=== PATIENT | female | born 1970 | race Caucasian/White ===

== ENCOUNTER 2016-06-07 12:26 | Inpatient (IN) | payer SELFPAY ==
[2016-06-07] VITALS (7 sets, daily range): BP systolic 102–138; BP diastolic 64–84; PULSE 70–93; RESP 12–22; TEMP 97.7–98.1; O2SAT 97–98
[~2016-06-07] VITALS: Ht 149.9 cm; Wt 53.3 kg
[~2016-06-07 12:26] MED LIST: BACT800T5 PO; PENVK500 PO
[2016-06-07] MEDS ORDERED: SODIUM CHLOR 0.9% 1000 ML INJ 1,000 ML IV SCH ×2 (13:38→15:10)
[2016-06-07] MEDS ORDERED: VANCOMYCIN INJ 1,000 MG in SODIUM CHLOR 0.9% 250 ML INJ 250 ML IV ONE (13:45)
[2016-06-07] MEDS ORDERED: LIDOCAINE 1%/EPINEPHrine 1:100,000 SOLN 20 ML VIAL INFIL ONE (13:45)
--- NOTE | 2016-06-07 13:54 | PD ---
HPI Chief Complaint: Skin Problem Time Seen by Provider: 13:20 Travel History International Travel<30 days: No Contact w/Intl Traveler<30days: No Traveled to known affect area: No History of Present Illness HPI Patient is a 45-year-old female with a history of IVDA, aortic valve Endocarditis, spinal osteomyelitis, lupus, hepatitis C and alcohol abuse presenting multiple skin abscesses. She has one in the right antecubital fossa has been present for 5 days which is "the worst ever had ". She says she's had a couple on her forearms that she has open herself with a razor blade over the last few days. For 2 days she has felt feverish and reports chills. She has had some occasional dizziness and lightheadedness but denies syncope. Says some chest discomfort which she is unable to characterize some dyspnea. The symptoms were yesterday and have not recurred. She is currently on amoxicillin 3 times a day for her endocarditis. She does not remember the name of her building specialist. She is chronic back pain and denies any acute worsening or injury. She does state that she's had some tingling since yesterday and her right foot and lateral right calf because it has occasionally been difficult to move it. She denies any other focal abnormality. Last tetanus less than 5 years. PFSH Past Medical History Hx Anticoagulant Therapy: No Arthritis: Yes (HANDS) Asthma: Yes Autoimmune Disease: Yes (LUPUS) Blood Disorders: No Anxiety: Yes Depression: No Cancer: No Cardiovascular Problems: Yes High Cholesterol: No Chemotherapy: No Chest Pain: Yes Congestive Heart Failure: No COPD: Yes Cerebrovascular Accident: No Diabetes: No Diminished Hearing: No Endocrine: No Gastrointestinal Disorders: No Genitourinary: No Hepatitis: Yes (C) Immune Disorder: Yes (LUPUS) Implanted Vascular Access Dvce: Yes Kidney Stones: No Musculoskeletal: Yes (SPINE PROBLEMS (NECK AND BACK)) Neurologic: No Psychiatric: Yes Reproductive: No Respiratory: No Immunizations Current: No Radiation Therapy: No Renal Failure: No Seizures: No Sleep Apnea: No Tetanus Vaccination: > 5 Years Influenza Vaccination: No ?: Not Menopausal: Yes : 3 Para: 1 Miscarriage: 0 : 2 Ovarian Cysts: Yes Past Surgical History Abdominal Surgery: No AICD: No Arteriovenous Shunt: No Body Medical Devices: CADAVER BONE IN NECK Cardiac Surgery: No Section: Yes (X1) Ear Surgery: No Endocrine Surgery: No Eye Surgery: No Genitourinary Surgery: No Gynecologic Surgery: Yes (PARTIAL HYSTERECTOMY) Hysterectomy: Yes (PARTIAL) Insulin Pump: No Joint Replacement: No Neurologic Surgery: Yes ("NECK SURGERY") Oral Surgery: No Pacemaker: No Thoracic Surgery: No Other Surgery: Yes (cervical surgery, right wrist tendon repair) Social History Alcohol Use: Yes (DAILY; 1/5 vodka ) Tobacco Use: Yes (2 PPD) Substance Use: Yes (IV DILAUDID) Allergies-Medications (Allergen,Severity, Reaction): Coded Allergies: Penicillin (Verified Allergy, Severe, THROAT SWELLS SHUT, 06/07/16) pt states she is not allergic to it anymore Reported Meds & Prescriptions Reported Meds & Active Scripts Active Reported Amoxicillin 500 Mg Cap 500 Mg PO TID Review of Systems Except as stated in HPI: all other systems reviewed are Neg Physical Exam Narrative GENERAL: Well-developed and well-nourished adult female in no acute distress. SKIN: 3 cm fluctuant erythematous and warm lesion in the right antecubital fossae with pointing. There is no palpable thrill, no drainage. There is a zone of cellulitis surrounding it but no streaking. There are 2 areas of cellulitis and nondraining open wounds in the bilateral forearms. Warm and dry. Good turgor without tenting. HEAD: Normocephalic and atraumatic. EYES: PERRL bilaterally, 5mm. EOMI bilaterally. No injection or icterus present. No proptosis. Lids without edema or erythema. ENT: Buccal mucosa pink and moist. Oropharynx free of erythema, tonsillar hypertrophy, masses, swelling, asymmetry and exudates. Uvula midline and airway patent. NECK: Supple, no meningeal signs. Trachea midline, no JVD. No cervical or facial lymphadenopathy. CARDIOVASCULAR: Regular rate and rhythm without murmurs, rubs, clicks or gallops. Radial and posterior tibial pulses 2+ bilaterally. No pedal edema. RESPIRATORY: Clear to auscultation bilaterally with symmetrical rise and fall, no distress or use of accessory muscles. GASTROINTESTINAL: Non-tender, non-distended. Normal bowel sounds all 4 quadrants. No masses or organomegaly present. MUSCULOSKELETAL: Skin findings per above. No tenderness to palpation to bony landmarks of the elbow and normal range of motion of the right elbow. Patient freely moving all four extremities spontaneously. Extremities without clubbing, cyanosis, or edema. No obvious deformities. NEUROLOGIC: CN II-XII grossly intact. Awake and alert. Sensation intact L1-S2 bilaterally however is reduced over the L4 through S2 distribution on the right to light touch. Strength 5/5 in hip flexion, hip extension, knee flexion, knee extension, plantar flexion, dorsiflexion, and great toe flexion and extension bilaterally. Bilateral patellar and Achilles DTRs 2+. Downgoing Babinskis bilaterally. Normal speech. PSYCHIATRIC: Appropriate mood and affect; insight and judgment normal. Data Data Last Documented VS Vital Signs Date Time Temp Pulse Resp B/P Pulse Ox O2 Delivery O2 Flow Rate FiO2 06/07/16 15:12 82 18 123/84 97 Room Air 06/07/16 12:29 98.1 Orders Blood Culture (06/07/16 13:38) Wound Culture And Gram Stain (06/07/16 13:38) Electrocardiogram (06/07/16 13:38) Complete Blood Count With Diff (06/07/16 13:38) Comprehensive Metabolic Panel (06/07/16 13:38) Beta Hcg (Quant/Titer) (06/07/16 13:38) Prothrombin Time / Inr (Pt) (06/07/16 13:38) Act Partial Throm Time (Ptt) (06/07/16 13:38) Lactic Acid Sepsis Protocol (06/07/16 13:38) Magnesium (Mg) (06/07/16 13:38) Ckmb (Isoenzyme) Profile (06/07/16 13:38) Troponin I (06/07/16 13:38) Chest, Single Ap (06/07/16 ) Sodium Chlor 0.9% 1000 Ml Inj (Ns 1000 M (06/07/16 13:38) Lidocai-Epi 1%-1:100,000 Inj (Xylocaine- (06/07/16 13:45) Vancomycin Inj (Vancomycin Inj) (06/07/16 13:45) Piperacil-Tazo 3.375 Gm Premix (Zosyn 3. (06/07/16 14:00) Consult Vascular Access Team (06/07/16 ) Vascular Poc Ultrasound (06/07/16 ) Westergren Sedimentation Rate (06/07/16 15:08) C-Reactive Protein (Crp) (06/07/16 15:08) Sodium Chlor 0.9% 1000 Ml Inj (Ns 1000 M (06/07/16 15:10) Hydromorphone Pf Inj (Dilaudid Pf Inj) (06/07/16 15:30) Admit Order (Ed Use Only) (06/07/16 16:45) Labs Laboratory Tests Test 06/07/16 06/07/16 14:30 15:20 White Blood Count 6.3 TH/MM3 Red Blood Count 4.11 MIL/MM3 Hemoglobin 13.3 GM/DL Hematocrit 39.2 % Mean Corpuscular Volume 95.4 FL Mean Corpuscular Hemoglobin 32.4 PG Mean Corpuscular Hemoglobin 33.9 % Concent Red Cell Distribution Width 14.6 % Platelet Count 183 TH/MM3 Mean Platelet Volume 7.4 FL Neutrophils (%) (Auto) 55.2 % Lymphocytes (%) (Auto) 32.7 % Monocytes (%) (Auto) 8.2 % Eosinophils (%) (Auto) 3.1 % Basophils (%) (Auto) 0.8 % Neutrophils # (Auto) 3.5 TH/MM3 Lymphocytes # (Auto) 2.1 TH/MM3 Monocytes # (Auto) 0.5 TH/MM3 Eosinophils # (Auto) 0.2 TH/MM3 Basophils # (Auto) 0.0 TH/MM3 CBC Comment DIFF FINAL Differential Comment Prothrombin Time 10.3 SEC Prothromb Time International 0.9 RATIO Ratio Activated Partial 26.9 SEC Thromboplast Time Sodium Level 139 MEQ/L Potassium Level 3.7 MEQ/L Chloride Level 107 MEQ/L Carbon Dioxide Level 23.2 MEQ/L Anion Gap 9 MEQ/L Blood Urea Nitrogen 8 MG/DL Creatinine 0.51 MG/DL Estimat Glomerular Filtration 129 ML/MIN Rate Random Glucose 100 MG/DL Lactic Acid Level 2.0 mmol/L Calcium Level 9.0 MG/DL Magnesium Level 2.1 MG/DL Total Bilirubin 0.3 MG/DL Aspartate Amino Transf 97 U/L (AST/SGOT) Alanine Aminotransferase 55 U/L (ALT/SGPT) Alkaline Phosphatase 178 U/L Total Creatine Kinase 57 U/L Troponin I LESS THAN 0.02 NG/ML Total Protein 8.2 GM/DL Albumin 3.6 GM/DL Human Chorionic Gonadotropin, 3 MIU/ML Quant Erythrocyte Sedimentation Rate 44 mm/hr C-Reactive Protein 0.38 MG/DL MDM Medical Decision Making Medical Screen Exam Complete: Yes Emergency Medical Condition: Yes Interpretation(s) Laboratory Tests Test 06/07/16 06/07/16 14:30 15:20 White Blood Count 6.3 TH/MM3 (4.0-11.0) Red Blood Count 4.11 MIL/MM3 (4.00-5.30) Hemoglobin 13.3 GM/DL (11.6-15.3) Hematocrit 39.2 % (35.0-46.0) Mean Corpuscular Volume 95.4 FL (80.0-100.0) Mean Corpuscular Hemoglobin 32.4 PG (27.0-34.0) Mean Corpuscular Hemoglobin 33.9 % Concent (32.0-36.0) Red Cell Distribution Width 14.6 % (11.6-17.2) Platelet Count 183 TH/MM3 (150-450) Mean Platelet Volume 7.4 FL (7.0-11.0) Neutrophils (%) (Auto) 55.2 % (16.0-70.0) Lymphocytes (%) (Auto) 32.7 % (9.0-44.0) Monocytes (%) (Auto) 8.2 % (0.0-8.0) Eosinophils (%) (Auto) 3.1 % (0.0-4.0) Basophils (%) (Auto) 0.8 % (0.0-2.0) Neutrophils # (Auto) 3.5 TH/MM3 (1.8-7.7) Lymphocytes # (Auto) 2.1 TH/MM3 (1.0-4.8) Monocytes # (Auto) 0.5 TH/MM3 (0-0.9) Eosinophils # (Auto) 0.2 TH/MM3 (0-0.4) Basophils # (Auto) 0.0 TH/MM3 (0-0.2) CBC Comment DIFF FINAL Differential Comment Prothrombin Time 10.3 SEC (9.8-11.6) Prothromb Time International 0.9 RATIO Ratio Activated Partial 26.9 SEC Thromboplast Time (24.3-30.1) Sodium Level 139 MEQ/L (136-145) Potassium Level 3.7 MEQ/L (3.5-5.1) Chloride Level 107 MEQ/L (98-107) Carbon Dioxide Level 23.2 MEQ/L (21.0-32.0) Anion Gap 9 MEQ/L (5-15) Blood Urea Nitrogen 8 MG/DL (7-18) Creatinine 0.51 MG/DL (0.50-1.00) Estimat Glomerular Filtration 129 ML/MIN Rate (>89) Random Glucose 100 MG/DL (74-106) Lactic Acid Level 2.0 mmol/L (0.4-2.0) Calcium Level 9.0 MG/DL (8.5-10.1) Magnesium Level 2.1 MG/DL (1.5-2.5) Total Bilirubin 0.3 MG/DL (0.2-1.0) Aspartate Amino Transf 97 U/L (15-37) (AST/SGOT) Alanine Aminotransferase 55 U/L (10-53) (ALT/SGPT) Alkaline Phosphatase 178 U/L (45-117) Total Creatine Kinase 57 U/L (26-192) Troponin I LESS THAN 0.02 NG/ML (0.02-0.05) Total Protein 8.2 GM/DL (6.4-8.2) Albumin 3.6 GM/DL (3.4-5.0) Human Chorionic Gonadotropin, 3 MIU/ML (0-5) Quant Erythrocyte Sedimentation Rate 44 mm/hr (0-20) C-Reactive Protein 0.38 MG/DL (0.00-0.30) Last 24 hours Impressions Chest X-Ray 06/07/16 0000 Signed Impressions: Service Date/Time: Tuesday, June 07, 2016 14:37 - CONCLUSION: No acute disease. Natanael Martinez MD Last 24 hours Impressions Chest X-Ray 06/07/16 0000 Signed Impressions: Service Date/Time: Kaden Martinez MD Differential Diagnosis Abscess versus cellulitis versus sepsis versus endocarditis versus ACS versus pneumonia versus arrhythmia versus HNP versus epidural abscess Narrative Course Patient is a 45-year-old female IV opioid user with a history of endocarditis with aortic valve, spinal osteomyelitis, lupus and alcohol abuse presenting with abscess in the right antecubital fossa and there is a cellulitis on the forearms despite being on daily antibiotics to treat her endocarditis. She is afebrile and nontoxic-appearing but has systemic complaints. Initial blood pressure systolic is 138 however repeat was 95. Patient was given 1 L normal saline bolus and SBP raise to 105. She is given additional 1 L bolus. She has been asymptomatic while here. EKG is unremarkable. Patient was given vancomycin and Zosyn as she has been desensitized to penicillins. Performed incision and drainage per attached procedure narrative. The chest x-ray and labs including lactic acid, blood cultures, ESR and CRP. EKG and chest x-ray unremarkable. Sedimentation rate 44, CRP 0.38. Lactic acid 2.0. Metabolic panel shows AST 97, ALT 55 and ALP 178. Troponin less than 0.02. Performed incision and drainage per attached procedure narrative. Patient was admitted to for abscess, rule out sepsis with failure of outpatient therapy and concern for endocarditis and possible osteomyelitis. Procedures Procedure Narrative I&D LOCATION: Right antecubital fossa SIZE: 3 cm ANESTHESIA: Percent lidocaine with epi PROCEDURE: The abscess was prepped with Betadine and sterilely draped. I aspirated 1 cc of pus purulent material with small amount of blood prior to performing I&D. The abscess was infiltrated with 1 cc of above anesthetic. Incision was made with a #11 blade with length of 1 cm and depth of 6. Expressed purulent and bloody material, approximately 12 mL. The wound was copiously irrigated and loculations were broken up. The wound was left open and covered with a sterile dressing. Packing was not done due to patient refusal and tolerance. The patient was advised to keep the dressing clean and dry. Diagnosis Primary Impression: Sepsis Qualified Code: A41.9 - Sepsis, due to unspecified organism Additional Impressions: Abscess Failure of outpatient treatment Admitting Information Admitting Physician Requests: Admit Condition: Stable Jameel Saini III Jun 07, 2016 13:54
[2016-06-07] MEDS ORDERED: PIPERACIL-TAZO 3.375 GM PREMIX 50 ML IV ONE (14:00)
[2016-06-07 14:56] LABS: AUTOMATED NEUTROPHIL # 3.5 TH/MM3 (1.8-7.7); BASOPHIL % 0.8 % (0.0-2.0); EOSINOPHIL # 0.2 TH/MM3 (0-0.4); EOSINOPHIL % 3.1 % (0.0-4.0); HEMATOCRIT 39.2 % (35.0-46.0); HEMO FLAGS DIFF FINAL; LYMPH % 32.7 % (9.0-44.0); LYMPHOCYTE # 2.1 TH/MM3 (1.0-4.8); MEAN CELL VOLUME 95.4 FL (80.0-100.0); MEAN CORPUSCULAR HEMOGLOBIN 32.4 PG (27.0-34.0); MEAN CORPUSCULAR HGB CONC 33.9 % (32.0-36.0); MONO % 8.2 % (0.0-8.0); NEUT % 55.2 % (16.0-70.0); PLATELET COUNT 183 TH/MM3 (150-450); RED BLOOD COUNT 4.11 MIL/MM3 (4.00-5.30); RED CELL DISTRIBUTION WIDTH 14.6 % (11.6-17.2); WHITE BLOOD COUNT 6.3 TH/MM3 (4.0-11.0)
--- NOTE | 2016-06-07 15:13 | RADRPT ---
EXAM DATE/TIME: 06/07/2016 14:37 [facility] COMPARISON: CHEST SINGLE AP, March 15, 2016, 22:19. INDICATIONS : Shortness of breath. Abcess on arm. MEDICAL HISTORY : Chronic obstructive pulmonary disease. Hepatitis C. Lupus, Asthma. SURGICAL HISTORY : None. ENCOUNTER: Initial ACUITY: 1 day PAIN SCORE: 0/10 LOCATION: Bilateral chest FINDINGS: A single view of the chest demonstrates the lungs to be symmetrically aerated without evidence of mas s, infiltrate or effusion. The cardiomediastinal contours are unremarkable. Osseous structures are intact. CONCLUSION: No acute disease. Natanael Martinez MD on June 07, 2016 at 15:11 Board Certified Radiologist. This report was verified electronically.
[2016-06-07] MEDS ORDERED: AMOX500C PO (15:19)
[2016-06-07 15:26] LABS: ALT (GPT) 55 U/L (10-53); ANION GAP 9 MEQ/L (5-15); AST (GOT) 97 U/L (15-37); BICARBONATE 23.2 MEQ/L (21.0-32.0); BLOOD UREA NITROGEN 8 MG/DL (7-18); CHLORIDE 107 MEQ/L (98-107); GLOMERULAR FILTRATION RATE 129 ML/MIN (>89); MAGNESIUM 2.1 MG/DL (1.5-2.5); POTASSIUM 3.7 MEQ/L (3.5-5.1); SODIUM (NA) 139 MEQ/L (136-145)
[2016-06-07 15:27] LABS: APTT (PATIENT) 26.9 SEC (24.3-30.1); INTERNATIONAL NORMALIZED RATIO 0.9 RATIO; PROTHROMBIN TIME - PATIENT 10.3 SEC (9.8-11.6)
[2016-06-07 15:29] LABS: ALKALINE PHOSPHATASE 178 U/L (45-117); BETA HCG QUANT 3 MIU/ML (0-5); TOTAL BILIRUBIN ADULT 0.3 MG/DL (0.2-1.0)
[2016-06-07 15:30] LABS: CREATINE KINASE 57 U/L (26-192)
[2016-06-07] MEDS ORDERED: HYDROmorphone HCL PF 1 MG/ML VIAL IV PUSH ONE (15:30)
[2016-06-07] MEDS ORDERED: ACETAMINOPHEN/HYDROcodone 325 MG/5 MG TAB PO PRN (17:00)
[2016-06-07] MEDS ORDERED: Vancomycin Consult Pharmacy 1 EA OTHER SCH (17:00)
--- NOTE | 2016-06-07 17:18 | HHI.HP ---
[facility] Service [place] [facility] Primary Care Physician No Primary Care Physician Admission Diagnosis ABSCESS, FAILURE OUTPT THERAPY, R/O SEPSIS/ENDOCARDITIS Diagnoses: (1) Abscess Diagnosis: Principal Chief Complaint: skin infection Travel History International Travel<30 Days: No Contact w/Intl Traveler <30 Da: No Traveled to Known Affected Are: No History of Present Illness patient is a 45 y/o female, IVDA, with history of hepatitis C,osteomyelitis, endocarditis,presented to ER with abscess of the right antecubital fossa. she says that it started five days ago and gradually got worse.she says that she had a couple of other abscesses on the left hand which she cut them open. she reports on and off fever at home. she takes amoxicillin. she's also complaining of worsening low back pain along with some weakness and numbness over the right leg which started two days ago. Review of Systems Constitutional: COMPLAINS OF: Fever, Chills, DENIES: Weight loss, Night Sweats Eyes: DENIES: Blurred vision, Diplopia, Vision loss, Double Vision Ears, nose, mouth, throat: DENIES: Tinnitus, Vertigo, Throat pain, Epistaxis Respiratory: DENIES: Apneas, Cough, Snoring, Wheezing, Hemoptysis, Sputum production, Shortness of breath Cardiovascular: DENIES: Chest pain, Palpitations, Syncope, Dyspnea on Exertion , PND, Lower Extremity Edema, Orthopnea, Claudication Gastrointestinal: DENIES: Abdominal pain, Black stools, Bloody stools, Constipation, Diarrhea, Nausea, Vomiting, Difficulty Swallowing, Anorexia Genitourinary: DENIES: Urinary frequency, Urgency, Hematuria, Dysuria Musculoskeletal: DENIES: Joint pain, Muscle aches, Stiffness, Joint Swelling Integumentary: DENIES: Rash Neurologic: DENIES: Abnormal gait, Headache, Localized weakness, Paresthesias, Seizures, Speech Problems, Tremor, Poor Balance Psychiatric: DENIES: Anxiety, Confusion, Mood changes, Depression, Hallucinations, Agitation, Suicidal Ideation, Homicidal Ideation, Delusions Past Family Social History Past Medical History hepatitis C osteomyelitis endocarditis Past Surgical History surgery on the neck and wrist Reported Medications amoxicillin Allergies: Coded Allergies: Penicillin (Verified Allergy, Severe, THROAT SWELLS SHUT, 06/07/16) pt states she is not allergic to it anymore Active Ordered Medications Current Medications Sodium Chloride (NS 1000 ml Inj) 1,000 ml @ 1,000 mls/hr Q1H IV Last administered on 06/07/16 14:35; Start 06/07/16 at 13:38; Stop 06/07/16 at 14:37; Status DC Lidocaine/ Epinephrine 10 ml 10 ml ONCE ONCE INFIL ; Start 06/07/16 at 13:45; Stop 06/07/16 at 13:46; Status DC Vancomycin HCl 1000 mg/Sodium Chloride 250 ml @ 250 mls/hr ONCE ONCE IV Last administered on 06/07/16 14:35; Start 06/07/16 at 13:45; Stop 06/07/16 at 14:44; Status DC Piperacillin Sod/ Tazobactam Sod 50 ml @ 100 mls/hr ONCE ONCE IV Last administered on 06/07/16 16:08; Start 06/07/16 at 14:00; Stop 06/07/16 at 14:29; Status DC Sodium Chloride (NS 1000 ml Inj) 1,000 ml @ 1,000 mls/hr Q1H IV Last administered on 06/07/16 16:09; Start 06/07/16 at 15:10; Stop 06/07/16 at 16:09; Status DC Hydromorphone HCl (Dilaudid Pf Inj) 1 mg ONCE ONCE IV PUSH Last administered on 06/07/16 15:30; Start 06/07/16 at 15:30; Stop 06/07/16 at 15:31; Status DC Family History colon cancer in father/ lung cancer in mother. Social History smokes a pack and half a day- uses IV dilaudid/ drinks daily. Physical Exam Vital Signs Vital Signs Date Time Temp Pulse Resp B/P Pulse Ox O2 Delivery O2 Flow Rate FiO2 06/07/16 15:12 82 18 123/84 97 Room Air 06/07/16 14:37 82 16 106/75 97 Room Air 06/07/16 13:44 80 15 102/64 98 Room Air 06/07/16 12:50 90 16 06/07/16 12:29 98.1 93 12 138/84 98 Room Air Physical Exam GENERAL: This is a well-nourished, well-developed patient, in no apparent distress. SKIN: abscess noted on the right antecubital fossa- another abscess noted on the left hand HEAD: Atraumatic. Normocephalic. No temporal or scalp tenderness. EYES: Pupils equal round and reactive. Extraocular motions intact. No scleral icterus. No injection or drainage. ENT: Nose without bleeding, purulent drainage or septal hematoma. Throat without erythema, tonsillar hypertrophy or exudate. Uvula midline. Airway patent. NECK: Trachea midline. No JVD or lymphadenopathy. Supple, nontender, no meningeal signs. CARDIOVASCULAR: Regular rate and rhythm without murmurs, gallops, or rubs. RESPIRATORY: Clear to auscultation. Breath sounds equal bilaterally. No wheezes , rales, or rhonchi. GASTROINTESTINAL: Abdomen soft, non-tender, nondistended. No hepato-splenomegaly , or palpable masses. No guarding. MUSCULOSKELETAL: Extremities without clubbing, cyanosis, or edema. No joint tenderness, effusion, or edema noted. No calf tenderness. Negative Homans sign bilaterally. NEUROLOGICAL: Awake and alert. Cranial nerves II through XII intact. Motor and sensory grossly within normal limits. Five out of 5 muscle strength in all muscle groups. Normal speech. Laboratory Laboratory Tests Test 06/07/16 06/07/16 14:30 15:20 White Blood Count 6.3 Red Blood Count 4.11 Hemoglobin 13.3 Hematocrit 39.2 Mean Corpuscular Volume 95.4 Mean Corpuscular Hemoglobin 32.4 Mean Corpuscular Hemoglobin 33.9 Concent Red Cell Distribution Width 14.6 Platelet Count 183 Mean Platelet Volume 7.4 Neutrophils (%) (Auto) 55.2 Lymphocytes (%) (Auto) 32.7 Monocytes (%) (Auto) 8.2 Eosinophils (%) (Auto) 3.1 Basophils (%) (Auto) 0.8 Neutrophils # (Auto) 3.5 Lymphocytes # (Auto) 2.1 Monocytes # (Auto) 0.5 Eosinophils # (Auto) 0.2 Basophils # (Auto) 0.0 CBC Comment DIFF FINAL Differential Comment Prothrombin Time 10.3 Prothromb Time International 0.9 Ratio Activated Partial 26.9 Thromboplast Time Sodium Level 139 Potassium Level 3.7 Chloride Level 107 Carbon Dioxide Level 23.2 Anion Gap 9 Blood Urea Nitrogen 8 Creatinine 0.51 Estimat Glomerular Filtration 129 Rate Random Glucose 100 Lactic Acid Level 2.0 Calcium Level 9.0 Magnesium Level 2.1 Total Bilirubin 0.3 Aspartate Amino Transf 97 (AST/SGOT) Alanine Aminotransferase 55 (ALT/SGPT) Alkaline Phosphatase 178 Total Creatine Kinase 57 Troponin I LESS THAN 0.02 Total Protein 8.2 Albumin 3.6 Human Chorionic Gonadotropin, 3 Quant Erythrocyte Sedimentation Rate 44 C-Reactive Protein 0.38 Date/Time Procedure Status Source Growth 06/07/16 15:09 Gram Stain Received Wound Arm Pending 06/07/16 15:09 Wound Culture Received Wound Arm Pending 06/07/16 14:20 Aerobic Blood Culture Received Blood Peripheral Pending 06/07/16 14:20 Anaerobic Blood Culture Received Blood Peripheral Pending Result Diagram: 06/07/16 1430 06/07/16 1430 Imaging Last Impressions Chest X-Ray 06/07/16 0000 Signed Impressions: Service Date/Time: Tuesday, June 07, 2016 14:37 - CONCLUSION: No acute disease. Natanael Martinez MD Assessment and Plan Assessment and Plan A/P - abscess of the right antecubital fossa with history of IVDA continue with broad spectrum antibiotics- follow the cultures- consult hand surgery and ID- continue pain control -worsening back pain and numbness/ weakness of the right leg- will check MR lumbar spine -elevated LFT's with history of hepatitis C- will monitor -alcohol abuse; counselled on drinking cessation- start multivitamin, thiamine- ativan as needed -DVT prophylaxis with SCD's Discussed Condition With ER physician, the patient. Physician Certification 2 Midnight Certification Type: Admission for Inpatient Services Order for Inpatient Services The services are ordered in accordance with Medicare regulations or non- Medicare payer requirements, as applicable. In the case of services not specified as inpatient-only, they are appropriately provided as inpatient services in accordance with the 2-midnight benchmark. Estimated LOS (days): 2 days is the estimated time the patient will need to remain in the hospital, assuming treatment plan goals are met and no additional complications. Post-Hospital Plan: Home Jamie Arambula MD Jun 07, 2016 17:18
[2016-06-07] MEDS ORDERED: LORazepam 1 MG TAB PO PRN (17:30)
[2016-06-07] MEDS ORDERED: ONDANSETRON HCL 4 MG/2 ML VIAL IV PUSH PRN (17:30)
[2016-06-07] MEDS ORDERED: ACETAMINOPHEN 325 MG TAB PO PRN (17:30)
[2016-06-07] MEDS ORDERED: GADODIAMIDE PF 287 MG/ML 10 ML VIAL (for RAD MRI) IV ONE (18:44)
[2016-06-07] MEDS: SODIUM CHLOR 0.9% 1000 ML INJ 1,000 ML IV SCH (19:07)
--- NOTE | 2016-06-07 19:24 | PD ---
Physical Exam Date Seen by Provider: Jun 07, 2016 Time Seen by Provider: 16:00 Narrative I, Dr. Jeffries, have reviewed the advance practice practitioner's documentation and am in agreement, met with the patient face to face, made the diagnosis, and the medical decision making was done by me. *My assessment and Findings: Patient seen and evaluated with PA, please see PA note for further information and details. Patient is a known IV drug user with history of endocarditis, here with abscess to the right antecubital fossae, and has complains of fevers, leg numbness and tingling, feeling faint, multiple complaints. I&D was done on the right arm. There is concern especially with her history of endocarditis and IV drug use currently that there is underlying sepsis. Lactate was elevated. IV antibiotic's were initiated in the ER after cultures are drawn. Case was then discussed with [facility] hospitalist for admission. Laboratory Tests Test 06/07/16 06/07/16 14:30 15:20 Monocytes (%) (Auto) 8.2 % (0.0-8.0) Aspartate Amino Transf 97 U/L (15-37) (AST/SGOT) Alanine Aminotransferase 55 U/L (10-53) (ALT/SGPT) Alkaline Phosphatase 178 U/L (45-117) Troponin I LESS THAN 0.02 NG/ML (0.02-0.05) Erythrocyte Sedimentation Rate 44 mm/hr (0-20) C-Reactive Protein 0.38 MG/DL (0.00-0.30) Last 24 hours Impressions Chest X-Ray 06/07/16 0000 Signed Impressions: Service Date/Time: Tuesday, June 07, 2016 14:37 - CONCLUSION: No acute disease. Natanael Martinez MD Data Data Last Documented VS Vital Signs Date Time Temp Pulse Resp B/P Pulse Ox O2 Delivery O2 Flow Rate FiO2 06/07/16 15:12 82 18 123/84 97 Room Air 06/07/16 12:29 98.1 Orders Blood Culture (06/07/16 13:38) Wound Culture And Gram Stain (06/07/16 13:38) Electrocardiogram (06/07/16 13:38) Complete Blood Count With Diff (06/07/16 13:38) Comprehensive Metabolic Panel (06/07/16 13:38) Beta Hcg (Quant/Titer) (06/07/16 13:38) Prothrombin Time / Inr (Pt) (06/07/16 13:38) Act Partial Throm Time (Ptt) (06/07/16 13:38) Lactic Acid Sepsis Protocol (06/07/16 13:38) Magnesium (Mg) (06/07/16 13:38) Ckmb (Isoenzyme) Profile (06/07/16 13:38) Troponin I (06/07/16 13:38) Chest, Single Ap (06/07/16 ) Sodium Chlor 0.9% 1000 Ml Inj (Ns 1000 M (06/07/16 13:38) Lidocai-Epi 1%-1:100,000 Inj (Xylocaine- (06/07/16 13:45) Vancomycin Inj (Vancomycin Inj) (06/07/16 13:45) Piperacil-Tazo 3.375 Gm Premix (Zosyn 3. (06/07/16 14:00) Consult Vascular Access Team (06/07/16 ) Vascular Poc Ultrasound (06/07/16 ) Westergren Sedimentation Rate (06/07/16 15:08) C-Reactive Protein (Crp) (06/07/16 15:08) Sodium Chlor 0.9% 1000 Ml Inj (Ns 1000 M (06/07/16 15:10) Hydromorphone Pf Inj (Dilaudid Pf Inj) (06/07/16 15:30) Admit Order (Ed Use Only) (06/07/16 16:45) Labs Laboratory Tests Test 06/07/16 06/07/16 14:30 15:20 White Blood Count 6.3 TH/MM3 Red Blood Count 4.11 MIL/MM3 Hemoglobin 13.3 GM/DL Hematocrit 39.2 % Mean Corpuscular Volume 95.4 FL Mean Corpuscular Hemoglobin 32.4 PG Mean Corpuscular Hemoglobin 33.9 % Concent Red Cell Distribution Width 14.6 % Platelet Count 183 TH/MM3 Mean Platelet Volume 7.4 FL Neutrophils (%) (Auto) 55.2 % Lymphocytes (%) (Auto) 32.7 % Monocytes (%) (Auto) 8.2 % Eosinophils (%) (Auto) 3.1 % Basophils (%) (Auto) 0.8 % Neutrophils # (Auto) 3.5 TH/MM3 Lymphocytes # (Auto) 2.1 TH/MM3 Monocytes # (Auto) 0.5 TH/MM3 Eosinophils # (Auto) 0.2 TH/MM3 Basophils # (Auto) 0.0 TH/MM3 CBC Comment DIFF FINAL Differential Comment Prothrombin Time 10.3 SEC Prothromb Time International 0.9 RATIO Ratio Activated Partial 26.9 SEC Thromboplast Time Sodium Level 139 MEQ/L Potassium Level 3.7 MEQ/L Chloride Level 107 MEQ/L Carbon Dioxide Level 23.2 MEQ/L Anion Gap 9 MEQ/L Blood Urea Nitrogen 8 MG/DL Creatinine 0.51 MG/DL Estimat Glomerular Filtration 129 ML/MIN Rate Random Glucose 100 MG/DL Lactic Acid Level 2.0 mmol/L Calcium Level 9.0 MG/DL Magnesium Level 2.1 MG/DL Total Bilirubin 0.3 MG/DL Aspartate Amino Transf 97 U/L (AST/SGOT) Alanine Aminotransferase 55 U/L (ALT/SGPT) Alkaline Phosphatase 178 U/L Total Creatine Kinase 57 U/L Troponin I LESS THAN 0.02 NG/ML Total Protein 8.2 GM/DL Albumin 3.6 GM/DL Human Chorionic Gonadotropin, 3 MIU/ML Quant Erythrocyte Sedimentation Rate 44 mm/hr C-Reactive Protein 0.38 MG/DL [facility] Medical Record Reviewed: Yes Supervised Visit with DARCI: Yes Diagnosis Primary Impression: Sepsis Qualified Code: A41.9 - Sepsis, due to unspecified organism Additional Impressions: Abscess Failure of outpatient treatment Admitting Information Admitting Physician Requests: Admit Condition: Stable Mac Jeffries MD Jun 07, 2016 19:24
--- NOTE | 2016-06-07 19:40 | RADRPT ---
EXAM DATE/TIME: 06/07/2016 18:17 [facility] COMPARISON: MRI LUMBAR SPINE W & W/O CONTRAST, February 03, 2016, 17:54. INDICATIONS : Pain. Numbness right leg and foot. CONTRAST: 10 cc Omniscan (gadodiamide) IV MEDICAL HISTORY : None. SURGICAL HISTORY : Hysterectomy. Fusion, lumbar. ENCOUNTER: Initial ACUITY: 2 day PAIN SCORE: 5/10 LOCATION: back TECHNIQUE: Multiplanar multisequence MRI of the lumbar spine was performed with and without contrast. FINDINGS: The most caudal appearing lumbar vertebra is numbered as L5. VERTEBRAE: The vertebral bodies remain intact in height with invagination of the inferior endplate of L4 again n oted which is better defined. There is decreased marrow edema within the endplates at the L4-5 level compared to the prior study. There is mild residual enhancement of the endplates which is also improv ed. Discs: Disc space narrowing is again noted at the L4-5 level with no abnormal enhancement of the disc after contrast administration. CONUS: Normal level and configuration. T12-L1: The thecal sac has a normal diameter. No evidence of disc bulge or protrusion. The neural foramina are patent bilaterally. L1-L2: The thecal sac has a normal diameter. No evidence of disc bulge or protrusion. The neural foramina are patent bilaterally. L2-L3: The thecal sac has a normal diameter. No evidence of disc bulge or protrusion. The neural foramina are patent bilaterally. L3-L4: The thecal sac has a normal diameter. No evidence of disc bulge or protrusion. The neural foramina are patent bilaterally. L4-L5: There is an annular disc bulge with mild flattening of the anterior thecal sac and no focal protrusio n. There is narrowing of the neural foramina left greater than right. Mild degenerative changes are p resent involving facet joints. There is no epidural abscess. L5-S1: The thecal sac has a normal diameter. No evidence of disc bulge or protrusion. The neural foramina are patent bilaterally. CONCLUSION: 1. Residual changes are noted at the L4-5 level with decreased marrow edema and enhancement in the en dplates. There is residual disc space narrowing. The inferior endplate of L4 is better defined. 2. No epidural abscess. 3. Mild disc bulge at L4-5 with mild flattening of the anterior thecal sac and no focal protrusion. T here is narrowing of the neural foramina left greater than right. Uzair Pope MD on June 07, 2016 at 19:34 Board Certified Radiologist. This report was verified electronically.
[2016-06-08 00:25] VITALS: BP 132/66; PULSE 68; RESP 20; TEMP 98.4; O2SAT 99
[2016-06-08] MEDS: ACETAMINOPHEN/HYDROcodone 325 MG/5 MG TAB PO PRN ×3 (00:33→19:53)
[2016-06-08] MEDS: PIPERACIL-TAZO 3.375 GM PREMIX 50 ML IV SCH ×4 (01:15→23:01)
[2016-06-08] MEDS ORDERED: diphenhydrAMINE HCL 25 MG CAP PO ONE (03:00)
[2016-06-08] MEDS: VANCOMYCIN 1,000 MG/NS 250 ML IV SCH ×4 (03:15→14:54)
[2016-06-08] MEDS: SODIUM CHLOR 0.9% 1000 ML INJ 1,000 ML IV SCH ×3 (04:38→23:01)
[2016-06-08 05:14] VITALS: BP 130/79; PULSE 58; RESP 20; TEMP 97.8; O2SAT 97
[2016-06-08 07:17] VITALS: BP 132/78; PULSE 63; RESP 18; TEMP 98.2; O2SAT 96
--- NOTE | 2016-06-08 07:55 | HHI.PR ---
Subjective Remarks resting comfortably with no distress. pain is fairly controlled. complaining of some anxiety. Objective Vitals Vital Signs Date Time Temp Pulse Resp B/P Pulse Ox O2 Delivery O2 Flow Rate FiO2 06/08/16 07:17 98.2 63 18 132/78 96 06/08/16 05:14 97.8 58 20 130/79 97 06/08/16 01:16 16 06/08/16 00:25 98.4 68 20 132/66 99 06/07/16 21:27 97.7 70 22 128/70 98 06/07/16 19:06 93 16 115/79 98 Room Air 06/07/16 17:33 70 17 116/79 97 Room Air 06/07/16 15:12 82 18 123/84 97 Room Air 06/07/16 14:37 82 16 106/75 97 Room Air 06/07/16 13:44 80 15 102/64 98 Room Air 06/07/16 12:50 90 16 06/07/16 12:29 98.1 93 12 138/84 98 Room Air Result Diagram: 06/07/16 1430 06/07/16 1430 Imaging Last Impressions Lumbar Spine MRI 06/07/16 0000 Signed Impressions: Service Date/Time: Tuesday, June 07, 2016 18:17 - CONCLUSION: 1. Residual changes are noted at the L4-5 level with decreased marrow edema and enhancement in the endplates. There is residual disc space narrowing. The inferior endplate of L4 is better defined. 2. No epidural abscess. 3. Mild disc bulge at L4-5 with mild flattening of the anterior thecal sac and no focal protrusion. There is narrowing of the neural foramina left greater than right. Uzair Pope MD Chest X-Ray 06/07/16 0000 Signed Impressions: Service Date/Time: Tuesday, June 07, 2016 14:37 - CONCLUSION: No acute disease. Natanael Martinez MD Objective Remarks GENERAL: This is a well-nourished, well-developed patient, in no apparent distress. CARDIOVASCULAR: Regular rate and regular rhythm without murmurs, gallops, or rubs. RESPIRATORY: Clear to auscultation. Breath sounds equal bilaterally. No wheezes , rales, or rhonchi. GASTROINTESTINAL: Abdomen soft, non-tender, nondistended. Normal, active bowel sounds MUSCULOSKELETAL: abscess of the right antecubital fossa NEURO: Alert & Oriented x4 to person, place, time, situation. Moves all ext x4 Procedures I/D in ER Medications and IVs Current Medications Sodium Chloride (NS 1000 ml Inj) 1,000 ml @ 1,000 mls/hr Q1H IV Last administered on 06/07/16 14:35; Start 06/07/16 at 13:38; Stop 06/07/16 at 14:37; Status DC Lidocaine/ Epinephrine 10 ml 10 ml ONCE ONCE INFIL ; Start 06/07/16 at 13:45; Stop 06/07/16 at 13:46; Status DC Vancomycin HCl 1000 mg/Sodium Chloride 250 ml @ 250 mls/hr ONCE ONCE IV Last administered on 06/07/16 14:35; Start 06/07/16 at 13:45; Stop 06/07/16 at 14:44; Status DC Piperacillin Sod/ Tazobactam Sod 50 ml @ 100 mls/hr ONCE ONCE IV Last administered on 06/07/16 16:08; Start 06/07/16 at 14:00; Stop 06/07/16 at 14:29; Status DC Sodium Chloride (NS 1000 ml Inj) 1,000 ml @ 1,000 mls/hr Q1H IV Last administered on 06/07/16 16:09; Start 06/07/16 at 15:10; Stop 06/07/16 at 16:09; Status DC Hydromorphone HCl 1 mg 1 mg ONCE ONCE IV PUSH Last administered on 06/07/16 15 :30; Start 06/07/16 at 15:30; Stop 06/07/16 at 15:31; Status DC Piperacillin Sod/ Tazobactam Sod 50 ml @ 100 mls/hr Q8H IV Last administered on 06/08/16 01:15; Start 06/08/16 at 00:00 Pharmacy Profile Note (Vancomycin Consult Pharmacy) 0 ml @ 0 mls/hr UNSCH OTHER ; Start 06/07/16 at 17:00 Acetaminophen/ Hydrocodone Bitart ([place] 5-325 Mg) 1 tab Q4H PRN PO PAIN 1-5 Last administered on 06/07/16 20:24; Start 06/07/16 at 17:00 Acetaminophen/ Hydrocodone Bitart ([place] 5-325 Mg) 2 tab Q4H PRN PO PAIN 6-10 Last administered on 06/08/16 00:33; Start 06/07/16 at 17:00 Ketorolac Tromethamine 15 mg 15 mg Q8HR PRN IV PUSH BREAKTHROUGH PAIN; Start at 20:00; Stop 06/12/16 at 19:59 Sodium Chloride (NS 1000 ml Inj) 1,000 ml @ 100 mls/hr Q10H IV Last administered on 06/08/16 04:38; Start 06/07/16 at 19:00 Multivitamins (Theragran) 1 tab DAILY PO ; Start 06/08/16 at 09:00 Thiamine HCl (Vitamin B1) 100 mg DAILY PO ; Start 06/08/16 at 09:00 Lorazepam (Ativan) 1 mg Q6H PRN PO ANXIETY Last administered on 06/07/16 21:31 ; Start 06/07/16 at 17:30 Acetaminophen (Tylenol) 650 mg Q4H PRN PO FEVER; Start 06/07/16 at 17:30 Ondansetron HCl (Zofran Inj) 4 mg Q8HR PRN IV PUSH NAUSEA; Start 06/07/16 at 17: 30 Gadodiamide 10 ml 10 ml STK-MED ONCE IV Last administered on 06/07/16 18:44; Start 06/07/16 at 18:44; Stop 06/07/16 at 18:45; Status DC Vancomycin HCl/ Sodium Chloride (Vancomycin Inj/ NS 250 ml Inj) 250 ml @ 250 mls/hr Q12H IV Last administered on 06/08/16 03:15; Start 06/08/16 at 03:00 Miscellaneous Information SPECIFIC LAB TO BE DRAWN:VANCO TROUGH DATE TO BE DR... ONCE ONCE XX ; Start 06/09/16 at 02:45; Stop 06/09/16 at 02:46 Diphenhydramine HCl (Benadryl) 25 mg ONCE ONCE PO Last administered on 03:15; Start 06/08/16 at 03:00; Stop 06/08/16 at 03:01; Status DC A/P Assessment and Plan A/P - abscess of the right antecubital fossa with history of IVDA- s/p I/D in ER continue with broad spectrum antibiotics- follow the cultures- consulted hand surgery and ID- continue pain control -worsening back pain and numbness/ weakness of the right leg- MRI of lumbar spine with no epidural abscess -elevated LFT's with history of hepatitis C- will monitor -alcohol abuse; counselled on drinking cessation- started multivitamin, thiamine - ativan as needed -DVT prophylaxis with SCD's Jamie Arambula MD Jun 08, 2016 07:55
[2016-06-08] MEDS ORDERED: LORazepam 1 MG TAB PO PRN (08:00)
[2016-06-08] MEDS: MULTIVITAMIN TAB PO SCH (08:46)
[2016-06-08] MEDS: THIAMINE HCL 100 MG TAB PO SCH (08:46)
[2016-06-08] MEDS: NICOTINE 21 MG/24 HR PATCH TD SCH (08:47)
[2016-06-08] MEDS: REMOVE OLD NICOTINE PATCH TD SCH (08:48)
--- NOTE | 2016-06-08 09:03 | MB ---
cc: CATRACHITA DARLING MD DATE OF CONSULTATION 06/08/2016 REASON FOR CONSULTATION Right antecubital fossa abscess. HISTORY OF PRESENT ILLNESS The patient is a 45-hour-old female who presents complaining of right antecubital fossa pain and abscess. She has a history of IV drug abuse, hep-C, osteomyelitis and endocarditis. She states this started approximately five days ago and continued to get worse. She states several other abscesses on his left extremity for which she used a knife to cut opening. She does take amoxicillin for endocarditis. She complains of subjective fevers and chills. She came to the emergency department with evaluation for antecubital abscess. On my exam, she has complained of significant tenderness at this point. Discussion with the emergency department attempted for incision and drainage without success and the patient unable to tolerate at bedside, therefore, surgery was consulted. The patient states pain is 8/10 better with IV pain medication and is currently a 2/10. It is sharp, stabbing, worse with palpation and better with lying still. It radiates up the arm. PAST MEDICAL HISTORY 1. Hepatitis C 2. Osteomyelitis 3. Endocarditis PAST SURGERIES 1. Neck surgery 2. Wrist surgery MEDICATIONS Amoxicillin ALLERGIES PENICILLIN SOCIAL HISTORY Positive smokes a half pack a day. Positive IVDA, IV Dilaudid, drinks daily. FAMILY HISTORY Father with colon cancer. Mother with lung cancer. REVIEW OF SYSTEMS GENERAL: Complains of fever and chills. HEENT: Denies eye pain, ear pain. NECK: Denies swallowing or adenopathy. HEART: Denies chest pain or palpitation. RESPIRATORY: Denies cough or wheeze. GI: Denies abdominal pain or vomiting. MUSCULOSKELETAL: Complained of pain right-sided antecubital fossa. NEUROLOGIC: Denies any numbness. PSYCH: Okay judgment and insight. PHYSICAL EXAMINATION GENERAL: No acute distress. VITAL SIGNS: Temperature 98.1, pulse 93, respiration 12, blood pressure 138/84, pulse ox 98% on room air. HEENT: PERRLA, EOMI. No scleral icterus. Pupils equal, and reactive. NECK: Supple. Trachea midline. No JVD. CARDIOVASCULAR: S1-S2, regular rate. RESPIRATORY: Bilateral expansion. No wheeze. ABDOMEN: Soft, nontender, nondistended. MUSCULOSKELETAL: A 2 x 3 cm right antecubital abscess with erythema, positive tenderness to palpation, small siri incision with draining pus. Dressings unwrapped and re-wrapped in placed. NEUROLOGIC: 2+, pulse distal right upper extremity. Strong motor 5/5 all extremities. Left extremity upper scabs from previous abscess. SKIN: As above with in the antecubital fossa. LABORATORY AND DIAGNOSTIC DATA 1. WBC 6.3, hemoglobin 13.3, hematocrit 39.2, platelets 183. 2. Sodium 129, potassium 2.7, chloride 107, BUN 8, creatinine 0.5, AST 97, ALT 55, alk phos 178, troponin 0.02. INR was 1.09. 3. Chest x-ray reviewed by myself with no evidence of organomegaly or cardiomegaly. ASSESSMENT The patient is a 25-hour-old female with right antecubital fossa abscess. PLAN Full radiologic clinical laboratory workup for this patient with the above issue including abscess, attempted I and D at bedside by ED physician. We will defer to hand surgery for management. This was discussed with the patient and primary team. MD KAT Jenkins/USMAN /8:38 AM /8:53 AM RAMSES
[2016-06-08] MEDS: LORazepam 1 MG TAB PO PRN ×2 (10:54→19:52)
[2016-06-08 11:10] VITALS: BP 141/84; PULSE 57; RESP 17; TEMP 98; O2SAT 97
--- NOTE | 2016-06-08 13:59 | EKG ---
Date Performed: 06/07/2016 Time Performed: 13:56:16 PTAGE: 45 years EKG: Sinus rhythm NORMAL ECG Since PREVIOUS TRACING , no significant change noted PREVIOUS TRACIN03/16/2016 05.40 DOCTOR: Nick Kramer Interpretating Date/Time 06/08/2016 13:56:21
[2016-06-08 15:12] VITALS: BP 176/86; PULSE 57; RESP 17; TEMP 97.7; O2SAT 97
--- NOTE | 2016-06-08 15:17 | PD.CONS ---
History of Present Illness Service Infectious disease Consult Requested By Dr Arambula Reason for Consult Evaluate patient with abscess right antecubital fossa, has known IV drug use Primary Care Physician No Primary Care Physician Diagnoses: History of Present Illness Patient seen and examined. Records reviewed. Jason is a 45-year-old female, with known IV drug use, presented to the hospital for further evaluation of pain and swelling on her right antecubital fossa. Patient has been injecting in both upper extremities, and has had some abscesses in both forearms. She is had done Nory on several of them and they improve. She however developed one in her right antecubital fossa, and over the last 5 days it has gotten worse. She presented to the hospital for further evaluation and treatment. She's had on and off fevers. Patient has had previous treatment for endocarditis and lumbar osteomyelitis, and she has chronically been on amoxicillin. She denies any respiratory, GI or any urinary complaints. Since admission patient has not been febrile. She was seen by surgery, and plans to take her to the operating room to have formal I&D of her right antecubital fossa abscess. Infectious disease consultation has been requested to assist with evaluation and treatment. Her blood cultures are negative so far. There is a wound culture from the antecubital fossa, and is growing gram- negative arsalan. Review of Systems Constitutional: COMPLAINS OF: Fever, Chills Eyes: DENIES: Eye pain Ears, nose, mouth, throat: DENIES: Nasal discharge, Oral lesions, Throat pain, Ear Pain, Sinus Pain Respiratory: DENIES: Cough, Shortness of breath Cardiovascular: DENIES: Chest pain, Palpitations, Syncope Gastrointestinal: DENIES: Abdominal pain, Diarrhea, Nausea, Vomiting, Difficulty Swallowing Genitourinary: DENIES: Urgency, Hematuria, Dysuria Musculoskeletal: COMPLAINS OF: Back pain, DENIES: Joint pain, Muscle aches, Stiffness Immunologic/allergic: DENIES: Urticaria Neurologic: DENIES: Headache Psychiatric: COMPLAINS OF: Anxiety Past Family Social History Allergies: Coded Allergies: No Known Allergies (Unverified , 06/07/16) Past Medical History Hepatitis C Lumbar osteomyelitis Hx AV endocarditis History of multiple skin abscesses Past Surgical History Surgery on the neck and wrist History of laparoscopic surgery, she can't remember what it was for Active Ordered Medications Tylenol [place] Toradol Ativan Nicotine patch Zofran Zosyn Thiamine Vancomycin Social History Smokes a pack and half a day Uses IV dilaudid Drinks alcohol daily. Physical Exam Vital Signs Vital Signs Date Time Temp Pulse Resp B/P Pulse Ox O2 Delivery O2 Flow Rate FiO2 06/08/16 11:10 98.0 57 17 141/84 97 06/08/16 07:17 98.2 63 18 132/78 96 06/08/16 05:14 97.8 58 20 130/79 97 06/08/16 01:16 16 06/08/16 00:25 98.4 68 20 132/66 99 06/07/16 21:27 97.7 70 22 128/70 98 06/07/16 19:06 93 16 115/79 98 Room Air 06/07/16 17:33 70 17 116/79 97 Room Air 06/07/16 15:12 82 18 123/84 97 Room Air Physical Exam GENERAL: This is a well-nourished, well-developed patient, in no apparent distress. SKIN: Cool and dry. Has scattered tattoos. Has crusted eschar in both forearms from previous infected injection sites, that are now resolving HEAD: Atraumatic. Normocephalic. No temporal or scalp tenderness. EYES: [place] conjunctivae, no petechia or hemorrhage. Pupils equal round and reactive. Extraocular motions intact. No scleral icterus. No injection or drainage. ENT: Nose without bleeding, or purulent drainage. Moist oral mucosa. Throat without erythema, or exudate. Uvula midline. Airway patent. NECK: Trachea midline. No JVD or lymphadenopathy. Supple, nontender, no meningeal signs. CARDIOVASCULAR: Regular rate and rhythm without murmurs, gallops, or rubs. RESPIRATORY: Clear to auscultation. Breath sounds equal bilaterally. No wheezes , rales, or rhonchi. GASTROINTESTINAL: Abdomen soft, non-tender, nondistended. Bowel sounds are present and normoactive No hepato-splenomegaly, or palpable masses. No guarding. MUSCULOSKELETAL: Extremities without clubbing, cyanosis, or edema. No joint effusion, or edema noted. No calf tenderness. Negative Homans sign bilaterally. Ini the R antecubital fossa, there is a red, tender indurated area that measures about 1.5 inch size with some light yellow drainage. NEUROLOGICAL: Awake and alert. Cranial nerves II through XII intact. Motor and sensory grossly within normal limits. Five out of 5 muscle strength in all muscle groups. Normal speech. PSYCH: Calm and cooperative LINE: PIV with no evidence of infection Laboratory Laboratory Tests Test 06/07/16 15:20 Erythrocyte Sedimentation Rate 44 C-Reactive Protein 0.38 Date/Time Procedure Status Source Growth 06/07/16 15:09 Gram Stain - Final Resulted Wound Arm 06/07/16 15:09 Wound Culture - Preliminary Resulted Gram Negative Arsalan 06/07/16 14:20 Aerobic Blood Culture - Preliminary Resulted Blood Peripheral NO GROWTH IN 1 DAY 06/07/16 14:20 Anaerobic Blood Culture - Preliminary Resulted Blood Peripheral NO GROWTH IN 1 DAY Result Diagram: 06/07/16 1430 06/07/16 1430 Imaging RADIOLOGY STUDIES/FILMS REVIEWED Lumbar Spine MRI 06/07/16 0000 Signed Impressions: Service Date/Time: Tuesday, June 07, 2016 18:17 - CONCLUSION: 1. Residual changes are noted at the L4-5 level with decreased marrow edema and enhancement in the endplates. There is residual disc space narrowing. The inferior endplate of L4 is better defined. 2. No epidural abscess. 3. Mild disc bulge at L4-5 with mild flattening of the anterior thecal sac and no focal protrusion. There is narrowing of the neural foramina left greater than right. Uzair Pope MD Chest X-Ray 06/07/16 0000 Signed Impressions: Service Date/Time: Tuesday, June 07, 2016 14:37 - CONCLUSION: No acute disease. Natanael Martinez MD Assessment and Plan Assessment and Plan IMPRESSION R antecubital fossa abscess [place] IVDU Previous Rx for lumbar osteo and AV IE RECOMMENDATION Continue Zosyn Continue vancomycin Surgery is planning on doing formal I and D on her right antecubital fossa Currently she is not showing any evidence of bacteremia Once cultures are available, then we can choose an oral antibiotic to complete treatment of her abscess Follow cultures and adjust antibiotics Monitor progress Thank you for this consultation I will follow along with you Lisset Bolton MD Jun 08, 2016 15:17
[2016-06-08 19:30] VITALS: BP 154/82; PULSE 60; RESP 21; TEMP 98.4; O2SAT 99
--- NOTE | 2016-06-08 21:15 | MB ---
cc: IRMA ARCINIEGA MD DATE OF CONSULTATION 06/08/16 HISTORY OF PRESENT ILLNESS The patient is a 45 year old right hand dominant female who six days ago injected Dilaudid into her right arm near her elbow and presented to the emergency room with a very superficial 3 cm diameter abscess on the medial aspect of the right elbow. I am the third consultation to be called as the other physicians were either unable or unwilling to take care of her. She was not able to tolerate bedside incision and drainage in the emergency room so I have scheduled her to go to the operating room tomorrow for anesthesia. PAST MEDICAL HISTORY 1. Hepatitis C 2. Osteomyelitis 3. Endocarditis. The patient states she takes amoxicillin for her heart. PAST SURGICAL HISTORY 1. Right forearm tendon repairs many years ago 2. Partial hysterectomy ALLERGIES The patient denies any allergies. MEDICATIONS In the hospital, 1. Multivitamins 2. Thiamine 3. Nicotine 4. Ativan 5. Vancomycin 6. Zosyn 7. Toradol 8. Ecru SOCIAL HISTORY She last used injectable drugs six days ago. IMAGING STUDIES There were no x-rays of her elbow performed so I am going to order those. LABORATORY DATA White blood cell count 6.3000, hemoglobin 13.3, platelet count 183,000. BUN and creatinine 8 and 0.51. PHYSICAL EXAMINATION GENERAL: She is cachectic but in no apparent distress sitting in her bed with her right elbow with a small bandage. VITAL SIGNS: Temperature 98.4, heart rate 60, respiratory rate 21, blood pressure 154/82. Examination of the right upper extremity reveals not an antecubital fossa abscess but a very superficial abscess in the skin and the dermis on the medial aspect of the elbow overlying the medial epicondyle. There is minimal fluctuance, but there is erythema and induration and tenderness. She does have some forearm cords likely thrombosed veins. There is no proximal or distal streaking. She does have limited range of motion of her fingers from previous injuries and she said this is nothing new. Capillary refill is two seconds in the fingertips. She does have some old healing wounds in the forearm. There is minimal fluctuance of this very superficial small abscess. IMPRESSION Right elbow superficial abscess and skin infection. PLAN The patient was scheduled by another surgeon to go to the operating room, but was suddenly canceled. The patient needs to go to the operating room because she is not going to cooperate to do this at the bedside so I put her on my schedule for tomorrow morning. I have discussed this with the patient. She agrees and requests that we proceed. MD SISI Dominguez III/ /8:44 PM /8:55 PM RAMSES
--- NOTE | 2016-06-08 21:26 | RADRPT ---
EXAM DATE/TIME: 06/08/2016 21:02 [facility] COMPARISON: No previous studies available for comparison. INDICATIONS : Pre-op, abscess in right elbow. MEDICAL HISTORY : None. SURGICAL HISTORY : None. ENCOUNTER: Initial ACUITY: 1 day PAIN SCORE: 0/10 LOCATION: Right elbow FINDINGS: Two view examination of the right elbow demonstrates no soft tissue swelling, joint effusion, fractur e or dislocation. Bony mineralization is normal. CONCLUSION: No acute disease. Aj Torres MD on June 08, 2016 at 21:24 Board Certified Radiologist. This report was verified electronically.
[2016-06-08] MEDS ORDERED: TEMAZEPAM 7.5 MG CAP PO ONE (22:15)
[2016-06-08] MEDS: KETOROLAC TROMETHAMINE 30 MG/ML (IVP) VIAL IV PUSH PRN (22:23)
[2016-06-09] VITALS (7 sets, daily range): BP systolic 140–170; BP diastolic 76–90; PULSE 64–98; RESP 18–21; TEMP 97.7–98.9; O2SAT 96–98
[2016-06-09] MEDS: ACETAMINOPHEN/HYDROcodone 325 MG/5 MG TAB PO PRN ×4 (02:23→21:11)
[2016-06-09] MEDS: LORazepam 1 MG TAB PO PRN ×4 (02:23→21:11)
[2016-06-09] MEDS ORDERED: PHARMACY ORDERED LAB XX ONE (02:45)
[2016-06-09 03:41] LABS: AUTOMATED NEUTROPHIL # 1.6 TH/MM3 (1.8-7.7); EOSINOPHIL # 0.1 TH/MM3 (0-0.4); EOSINOPHIL % 4.5 % (0.0-4.0); HEMATOCRIT 35.5 % (35.0-46.0); HEMO FLAGS DIFF FINAL; LYMPH % 34.9 % (9.0-44.0); LYMPHOCYTE # 1.1 TH/MM3 (1.0-4.8); MEAN CELL VOLUME 96.2 FL (80.0-100.0); MEAN CORPUSCULAR HEMOGLOBIN 32.6 PG (27.0-34.0); MEAN CORPUSCULAR HGB CONC 33.9 % (32.0-36.0); MONO % 10.1 % (0.0-8.0); NEUT % 49.5 % (16.0-70.0); PLATELET COUNT 117 TH/MM3 (150-450); RED BLOOD COUNT 3.69 MIL/MM3 (4.00-5.30); RED CELL DISTRIBUTION WIDTH 14.1 % (11.6-17.2); WHITE BLOOD COUNT 3.3 TH/MM3 (4.0-11.0)
[2016-06-09] MEDS: VANCOMYCIN 1,000 MG/NS 250 ML IV SCH ×2 (04:00)
[2016-06-09 04:11] LABS: BICARBONATE 24.5 MEQ/L (21.0-32.0); POTASSIUM 3.5 MEQ/L (3.5-5.1)
[2016-06-09 04:13] LABS: VANCOMYCIN TROUGH 9.4 MCG/ML (5.0-10.0)
--- NOTE | 2016-06-09 08:08 | HHI.PR ---
Subjective Remarks resting comfortably with no distress. afebrile. pain is fairly controlled. awaiting surgery. Objective Vitals Vital Signs Date Time Temp Pulse Resp B/P Pulse Ox O2 Delivery O2 Flow Rate FiO2 06/09/16 07:13 98.2 74 18 140/76 98 06/09/16 04:36 98.9 98 18 157/78 97 06/09/16 04:14 16 06/09/16 00:39 98.4 78 21 147/78 98 06/08/16 23:30 16 06/08/16 19:30 98.4 60 21 154/82 99 06/08/16 15:12 97.7 57 17 176/86 97 06/08/16 11:10 98.0 57 17 141/84 97 Result Diagram: 06/09/16 0320 06/09/16 0320 Imaging Last Impressions Elbow X-Ray 06/08/16 0000 Signed Impressions: Service Date/Time: Wednesday, June 08, 2016 21:02 - CONCLUSION: No acute disease. Aj Torres MD Lumbar Spine MRI 06/07/16 0000 Signed Impressions: Service Date/Time: Tuesday, June 07, 2016 18:17 - CONCLUSION: 1. Residual changes are noted at the L4-5 level with decreased marrow edema and enhancement in the endplates. There is residual disc space narrowing. The inferior endplate of L4 is better defined. 2. No epidural abscess. 3. Mild disc bulge at L4-5 with mild flattening of the anterior thecal sac and no focal protrusion. There is narrowing of the neural foramina left greater than right. Uzair Pope MD Chest X-Ray 06/07/16 0000 Signed Impressions: Service Date/Time: Tuesday, June 07, 2016 14:37 - CONCLUSION: No acute disease. Natanael Martinez MD Objective Remarks GENERAL: This is a well-nourished, well-developed patient, in no apparent distress. CARDIOVASCULAR: Regular rate and regular rhythm without murmurs, gallops, or rubs. RESPIRATORY: Clear to auscultation. Breath sounds equal bilaterally. No wheezes , rales, or rhonchi. GASTROINTESTINAL: Abdomen soft, non-tender, nondistended. Normal, active bowel sounds MUSCULOSKELETAL: abscess of the right antecubital fossa NEURO: Alert & Oriented x4 to person, place, time, situation. Moves all ext x4 Procedures I/D in ER Medications and IVs Current Medications Sodium Chloride (NS 1000 ml Inj) 1,000 ml @ 1,000 mls/hr Q1H IV Last administered on 06/07/16 14:35; Start 06/07/16 at 13:38; Stop 06/07/16 at 14:37; Status DC Lidocaine/ Epinephrine 10 ml 10 ml ONCE ONCE INFIL ; Start 06/07/16 at 13:45; Stop 06/07/16 at 13:46; Status DC Vancomycin HCl 1000 mg/Sodium Chloride 250 ml @ 250 mls/hr ONCE ONCE IV Last administered on 06/07/16 14:35; Start 06/07/16 at 13:45; Stop 06/07/16 at 14:44; Status DC Piperacillin Sod/ Tazobactam Sod 50 ml @ 100 mls/hr ONCE ONCE IV Last administered on 06/07/16 16:08; Start 06/07/16 at 14:00; Stop 06/07/16 at 14:29; Status DC Sodium Chloride (NS 1000 ml Inj) 1,000 ml @ 1,000 mls/hr Q1H IV Last administered on 06/07/16 16:09; Start 06/07/16 at 15:10; Stop 06/07/16 at 16:09; Status DC Hydromorphone HCl 1 mg 1 mg ONCE ONCE IV PUSH Last administered on 06/07/16 15 :30; Start 06/07/16 at 15:30; Stop 06/07/16 at 15:31; Status DC Piperacillin Sod/ Tazobactam Sod 50 ml @ 100 mls/hr Q8H IV Last administered on 06/08/16 23:01; Start 06/08/16 at 00:00 Pharmacy Profile Note (Vancomycin Consult Pharmacy) 0 ml @ 0 mls/hr UNSCH OTHER ; Start 06/07/16 at 17:00 Acetaminophen/ Hydrocodone Bitart ([place] 5-325 Mg) 1 tab Q4H PRN PO PAIN 1-5 Last administered on 06/07/16 20:24; Start 06/07/16 at 17:00 Acetaminophen/ Hydrocodone Bitart ([place] 5-325 Mg) 2 tab Q4H PRN PO PAIN 6-10 Last administered on 06/09/16 02:23; Start 06/07/16 at 17:00 Ketorolac Tromethamine 15 mg 15 mg Q8HR PRN IV PUSH BREAKTHROUGH PAIN Last administered on 06/08/16 22:23; Start 06/07/16 at 20:00; Stop 06/12/16 at 19:59 Sodium Chloride (NS 1000 ml Inj) 1,000 ml @ 100 mls/hr Q10H IV Last administered on 06/08/16 23:01; Start 06/07/16 at 19:00 Multivitamins (Theragran) 1 tab DAILY PO ; Start 06/08/16 at 09:00 Thiamine HCl (Vitamin B1) 100 mg DAILY PO ; Start 06/08/16 at 09:00 Lorazepam (Ativan) 1 mg Q6H PRN PO ANXIETY Last administered on 06/07/16 21:31 ; Start 06/07/16 at 17:30; Stop 06/08/16 at 07:53; Status DC Acetaminophen (Tylenol) 650 mg Q4H PRN PO FEVER; Start 06/07/16 at 17:30 Ondansetron HCl (Zofran Inj) 4 mg Q8HR PRN IV PUSH NAUSEA; Start 06/07/16 at 17: 30 Gadodiamide 10 ml 10 ml STK-MED ONCE IV Last administered on 06/07/16 18:44; Start 06/07/16 at 18:44; Stop 06/07/16 at 18:45; Status DC Vancomycin HCl/ Sodium Chloride (Vancomycin Inj/ NS 250 ml Inj) 250 ml @ 250 mls/hr Q12H IV Last administered on 06/09/16 04:00; Start 06/08/16 at 03:00 Miscellaneous Information SPECIFIC LAB TO BE DRAWN:VANCO TROUGH DATE TO BE DRDarrick.. ONCE ONCE XX Last administered on 06/09/16 03:00; Start 06/09/16 at 02: 45; Stop 06/09/16 at 02:46; Status DC Diphenhydramine HCl (Benadryl) 25 mg ONCE ONCE PO Last administered on 03:15; Start 06/08/16 at 03:00; Stop 06/08/16 at 03:01; Status DC Lorazepam (Ativan) 1 mg Q4HR NEB PRN PO ANXIETY; Start 06/08/16 at 08:00; Stop 06/08/16 at 08:00; Status DC Nicotine (Habitrol 21 Mg Patch.24 Hr) 1 patch DAILY TD Last administered on 08:47; Start 06/08/16 at 09:00 Lorazepam (Ativan) 1 mg Q4HR PRN PO ANXIETY Last administered on 06/09/16 02: 23; Start 06/08/16 at 08:00 Miscellaneous Information 1 DAILY TD ; Start 06/08/16 at 09:00 Temazepam (Restoril) 7.5 mg ONCE ONCE PO Last administered on 06/08/16 22:23 ; Start 06/08/16 at 22:15; Stop 06/08/16 at 22:16; Status DC A/P Assessment and Plan A/P - abscess of the right antecubital fossa with history of IVDA- s/p I/D in ER continue with broad spectrum antibiotics- follow the cultures- hand surgery consult appreciated- plan for I/D today-ID is following. -worsening back pain and numbness/ weakness of the right leg- MRI of lumbar spine with no epidural abscess -elevated LFT's with history of hepatitis C- will monitor -alcohol abuse; counselled on drinking cessation- started multivitamin, thiamine - ativan as needed -DVT prophylaxis with SCD's Jamie Arambula MD Jun 09, 2016 08:08
[2016-06-09] MEDS: THIAMINE HCL 100 MG TAB PO SCH (08:16)
[2016-06-09] MEDS: MULTIVITAMIN TAB PO SCH (08:16)
[2016-06-09] MEDS: REMOVE OLD NICOTINE PATCH TD SCH (08:17)
[2016-06-09] MEDS: NICOTINE 21 MG/24 HR PATCH TD SCH (08:17)
[2016-06-09] MEDS: PIPERACIL-TAZO 3.375 GM PREMIX 50 ML IV SCH ×2 (08:17→16:22)
[2016-06-09] MEDS: SODIUM CHLOR 0.9% 1000 ML INJ 1,000 ML IV SCH ×2 (08:19→21:00)
[2016-06-09] MEDS ORDERED: LACTATED RINGER'S 1000 ML INJ 1,000 ML ONE (09:05)
[2016-06-09] MEDS ORDERED: ACETAMINOPHEN 1000 MG/100 ML VIAL IV ONE (09:29)
[2016-06-09] MEDS ORDERED: BUPIVACAINE HCL PF 0.5% 30 ML VIAL ONE (09:29)
[2016-06-09] MEDS ORDERED: LIDOCAINE HCL 2% 50 ML VIAL ONE (09:29)
[2016-06-09] MEDS ORDERED: MIDAZOLAM HCL 2 MG/2 ML VIAL ONE (09:34)
[2016-06-09] MEDS ORDERED: fentaNYL CITRATE 250 MCG/5 ML AMP ONE (09:34)
[2016-06-09] MEDS ORDERED: NEOMYCIN/POLYMYXIN 1 ML G.U. IRRIGANT IR ONE (10:10)
--- NOTE | 2016-06-09 11:52 | MP ---
cc: GANGA HUSSEIN III, M.D. DATE OF SURGERY: 06/09/2016 PREOPERATIVE DIAGNOSIS Superficial right elbow abscess. POSTOPERATIVE DIAGNOSIS Superficial right elbow abscess. PROCEDURE Incision and debridement right elbow superficial abscess. SURGEON Ganga Hussein III, MD DETAILS OF PROCEDURE The patient was brought to the operating room and placed supine on the operating table after the correct site and side of surgery were verified by members of each team in the room multiple times including the patient and myself and after adequate preoperative markings and preoperative anesthesia were obtained, the right upper extremity was prepped and draped in traditional sterile surgical fashion. A culture was used to sample the wound and passed off the field as a specimen. A 50/50 mixture of 2% plain lidocaine and 0.5% plain Marcaine was infiltrated in the skin and subcutaneous tissue to provide for postoperative pain relief. The wound was then dilated and probed and found to be the size of a nickel underneath the skin with no tracking. There is a small area of devitalized tissue which was sharply debrided. There was no tracking or tunneling or any fluctuance. Irrigation with saline was used and then 1/4 inch Iodoform packing was used to pack the wound. The hand and arm were thoroughly cleansed and dried. A bulky soft, protective sterile dressing was applied. The axillary tourniquet was released after four total minutes, and the hand and all the fingers on the right became immediately soft, pink and warm and had brisk capillary refill less than 2 seconds. MD SISI Dominguez III/YEFRI /10:26 AM /11:37 AM
[2016-06-09] MEDS ORDERED: ONDANSETRON HCL 4 MG/2 ML VIAL IV PUSH ONE (11:54)
[2016-06-09] MEDS: VANCOMYCIN INJ 1,250 MG in SODIUM CHLOR 0.9% 250 ML INJ 250 ML IV SCH (14:39)
[2016-06-09] MEDS: KETOROLAC TROMETHAMINE 30 MG/ML (IVP) VIAL IV PUSH PRN (14:46)
[2016-06-09] MEDS ORDERED: TEMAZEPAM 7.5 MG CAP PO PRN (21:30)
[2016-06-10] MEDS: VANCOMYCIN INJ 1,250 MG in SODIUM CHLOR 0.9% 250 ML INJ 250 ML IV SCH (02:00)
[2016-06-10 02:18] VITALS: BP 148/67; PULSE 74; RESP 18; TEMP 98.7; O2SAT 97
[2016-06-10] MEDS: ACETAMINOPHEN/HYDROcodone 325 MG/5 MG TAB PO PRN ×4 (02:49→17:26)
[2016-06-10] MEDS: LORazepam 1 MG TAB PO PRN ×4 (02:49→17:26)
[2016-06-10 03:49] VITALS: BP 132/71; PULSE 64; RESP 18; TEMP 98.7; O2SAT 95
[2016-06-10] MEDS: KETOROLAC TROMETHAMINE 30 MG/ML (IVP) VIAL IV PUSH PRN ×2 (04:33→16:21)
[2016-06-10] MEDS: SODIUM CHLOR 0.9% 1000 ML INJ 1,000 ML IV SCH (05:48)
[2016-06-10 07:17] VITALS: BP 149/78; PULSE 61; RESP 18; TEMP 97.9; O2SAT 99
--- NOTE | 2016-06-10 07:34 | HHI.PR ---
Subjective Remarks afebrile. pain is fairly controlled. no other new complaints. Objective Vitals Vital Signs Date Time Temp Pulse Resp B/P Pulse Ox O2 Delivery O2 Flow Rate FiO2 06/10/16 07:17 97.9 61 18 149/78 99 06/10/16 05:47 16 06/10/16 04:31 16 06/10/16 03:49 98.7 64 18 132/71 95 06/10/16 02:18 98.7 74 18 148/67 97 06/09/16 20:30 98.9 87 18 152/77 98 06/09/16 15:23 98.0 88 18 156/90 96 06/09/16 11:32 97.7 66 18 170/87 98 06/09/16 11:00 98.1 67 16 168/88 98 Room Air 06/09/16 10:20 97.8 70 20 153/100 97 Room Air 06/09/16 08:35 98.6 64 18 158/88 96 I/O 06/09/16 06/09/16 06/09/16 06/10/16 06/10/16 06/10/16 07:00 15:00 23:00 07:00 15:00 23:00 Intake Total 800 ml Output Total 0 ml Balance 800 ml Intake Oral 100 ml IV Total 100 ml Other 600 ml Output Other 0 ml # Voids 1 1 1 2 Result Diagram: 06/09/16 0320 06/09/16 0320 Imaging Last Impressions Elbow X-Ray 06/08/16 0000 Signed Impressions: Service Date/Time: Wednesday, June 08, 2016 21:02 - CONCLUSION: No acute disease. Aj Torres MD Lumbar Spine MRI 06/07/16 0000 Signed Impressions: Service Date/Time: Tuesday, June 07, 2016 18:17 - CONCLUSION: 1. Residual changes are noted at the L4-5 level with decreased marrow edema and enhancement in the endplates. There is residual disc space narrowing. The inferior endplate of L4 is better defined. 2. No epidural abscess. 3. Mild disc bulge at L4-5 with mild flattening of the anterior thecal sac and no focal protrusion. There is narrowing of the neural foramina left greater than right. Uzair Pope MD Chest X-Ray 06/07/16 0000 Signed Impressions: Service Date/Time: Tuesday, June 07, 2016 14:37 - CONCLUSION: No acute disease. Natanael Martinez MD Objective Remarks GENERAL: This is a well-nourished, well-developed patient, in no apparent distress. CARDIOVASCULAR: Regular rate and regular rhythm without murmurs, gallops, or rubs. RESPIRATORY: Clear to auscultation. Breath sounds equal bilaterally. No wheezes , rales, or rhonchi. GASTROINTESTINAL: Abdomen soft, non-tender, nondistended. Normal, active bowel sounds MUSCULOSKELETAL: abscess of the right antecubital fossa NEURO: Alert & Oriented x4 to person, place, time, situation. Moves all ext x4 Procedures I/D of the right antecubital fossa abscess Medications and IVs Current Medications Sodium Chloride (NS 1000 ml Inj) 1,000 ml @ 1,000 mls/hr Q1H IV Last administered on 06/07/16 14:35; Start 06/07/16 at 13:38; Stop 06/07/16 at 14:37; Status DC Lidocaine/ Epinephrine 10 ml 10 ml ONCE ONCE INFIL ; Start 06/07/16 at 13:45; Stop 06/07/16 at 13:46; Status DC Vancomycin HCl 1000 mg/Sodium Chloride 250 ml @ 250 mls/hr ONCE ONCE IV Last administered on 06/07/16 14:35; Start 06/07/16 at 13:45; Stop 06/07/16 at 14:44; Status DC Piperacillin Sod/ Tazobactam Sod 50 ml @ 100 mls/hr ONCE ONCE IV Last administered on 06/07/16 16:08; Start 06/07/16 at 14:00; Stop 06/07/16 at 14:29; Status DC Sodium Chloride (NS 1000 ml Inj) 1,000 ml @ 1,000 mls/hr Q1H IV Last administered on 06/07/16 16:09; Start 06/07/16 at 15:10; Stop 06/07/16 at 16:09; Status DC Hydromorphone HCl 1 mg 1 mg ONCE ONCE IV PUSH Last administered on 06/07/16 15 :30; Start 06/07/16 at 15:30; Stop 06/07/16 at 15:31; Status DC Piperacillin Sod/ Tazobactam Sod 50 ml @ 100 mls/hr Q8H IV Last administered on 06/10/16 00:00; Start 06/08/16 at 00:00 Pharmacy Profile Note (Vancomycin Consult Pharmacy) 0 ml @ 0 mls/hr UNSCH OTHER ; Start 06/07/16 at 17:00 Acetaminophen/ Hydrocodone Bitart ([place] 5-325 Mg) 1 tab Q4H PRN PO PAIN 1-5 Last administered on 06/07/16 20:24; Start 06/07/16 at 17:00 Acetaminophen/ Hydrocodone Bitart ([place] 5-325 Mg) 2 tab Q4H PRN PO PAIN 6-10 Last administered on 06/10/16 02:49; Start 06/07/16 at 17:00 Ketorolac Tromethamine 15 mg 15 mg Q8HR PRN IV PUSH BREAKTHROUGH PAIN Last administered on 06/10/16 04:33; Start 06/07/16 at 20:00; Stop 06/12/16 at 19:59 Sodium Chloride (NS 1000 ml Inj) 1,000 ml @ 100 mls/hr Q10H IV Last administered on 06/09/16 08:19; Start 06/07/16 at 19:00 Multivitamins (Theragran) 1 tab DAILY PO ; Start 06/08/16 at 09:00 Thiamine HCl (Vitamin B1) 100 mg DAILY PO ; Start 06/08/16 at 09:00 Lorazepam (Ativan) 1 mg Q6H PRN PO ANXIETY Last administered on 06/07/16 21:31 ; Start 06/07/16 at 17:30; Stop 06/08/16 at 07:53; Status DC Acetaminophen (Tylenol) 650 mg Q4H PRN PO FEVER; Start 06/07/16 at 17:30 Ondansetron HCl (Zofran Inj) 4 mg Q8HR PRN IV PUSH NAUSEA; Start 06/07/16 at 17: 30 Gadodiamide 10 ml 10 ml STK-MED ONCE IV Last administered on 06/07/16 18:44; Start 06/07/16 at 18:44; Stop 06/07/16 at 18:45; Status DC Vancomycin HCl/ Sodium Chloride (Vancomycin Inj/ NS 250 ml Inj) 250 ml @ 250 mls/hr Q12H IV Last administered on 06/09/16 04:00; Start 06/08/16 at 03:00; Stop 06/09/16 at 12:24; Status DC Miscellaneous Information SPECIFIC LAB TO BE DRAWN:BRIANNA TROUGH DATE TO BE DR... ONCE ONCE XX Last administered on 06/09/16 03:00; Start 06/09/16 at 02: 45; Stop 06/09/16 at 02:46; Status DC Diphenhydramine HCl (Benadryl) 25 mg ONCE ONCE PO Last administered on 03:15; Start 06/08/16 at 03:00; Stop 06/08/16 at 03:01; Status DC Lorazepam (Ativan) 1 mg Q4HR NEB PRN PO ANXIETY; Start 06/08/16 at 08:00; Stop 06/08/16 at 08:00; Status DC Nicotine (Habitrol 21 Mg Patch.24 Hr) 1 patch DAILY TD Last administered on 08:17; Start 06/08/16 at 09:00 Lorazepam (Ativan) 1 mg Q4HR PRN PO ANXIETY Last administered on 06/10/16 02: 49; Start 06/08/16 at 08:00 Miscellaneous Information 1 DAILY TD Last administered on 06/09/16 08:17; Start 06/08/16 at 09:00 Temazepam 7.5 mg 7.5 mg ONCE ONCE PO Last administered on 06/08/16 22:23; Start 06/08/16 at 22:15; Stop 06/08/16 at 22:16; Status DC Lactated Ringer's (Lr 1000 ml Inj) 1,000 ml @ As Directed STK-MED ONCE .ROUTE Last administered on 06/09/16 09:10; Start 06/09/16 at 09:05; Stop 06/09/16 at 09:06; Status DC Lidocaine HCl (Xylocaine 2% Inj) 50 ml STK-MED ONCE .ROUTE Last administered on 06/09/16 10:10; Start 06/09/16 at 09:29; Stop 06/09/16 at 09:37; Status DC Bupivacaine HCl (Marcaine Pf 0.5% Inj) 30 ml STK-MED ONCE .ROUTE Last administered on 06/09/16 10:10; Start 06/09/16 at 09:29; Stop 06/09/16 at 09:37 ; Status DC Acetaminophen (Ofirmev Inj) 1,000 mg STK-MED ONCE IV Last administered on 09:30; Start 06/09/16 at 09:29; Stop 06/09/16 at 09:37; Status DC Midazolam HCl (Versed Inj) 2 mg STK-MED ONCE .ROUTE Last administered on 09:45; Start 06/09/16 at 09:34; Stop 06/09/16 at 09:37; Status DC Fentanyl Citrate (fentaNYL INJ) 250 mcg STK-MED ONCE .ROUTE ; Start 06/09/16 at 09:34; Stop 06/09/16 at 09:37; Status DC Neomycin/ Polymyxin 3 ml 3 ml STK-MED ONCE IR Last administered on 06/09/16 10 :10; Start 06/09/16 at 10:10; Stop 06/09/16 at 10:38; Status DC Vancomycin HCl/ Sodium Chloride (Vancomycin Inj/ NS 250 ml Inj) 262.5 ml @ 250 mls/hr Q12H IV Last administered on 06/10/16 02:00; Start 06/09/16 at 14:00 Miscellaneous Information SPECIFIC LAB TO BE DRAWN:VANCOMYCIN TROUGH DATE TO... ONCE ONCE XX ; Start 06/11/16 at 01:45; Stop 06/11/16 at 01:46 Temazepam (Restoril) 7.5 mg HS PRN PO insomnia Last administered on 06/09/16 21:48; Start 06/09/16 at 21:30 A/P Assessment and Plan A/P - abscess of the right antecubital fossa with history of IVDA- s/p I/D in ER and OR continue with broad spectrum antibiotics- follow the cultures- hand surgery and ID following. - back pain and numbness/ weakness of the right leg- improved MRI of lumbar spine with no epidural abscess -elevated LFT's with history of hepatitis C- f/u as outpatient -alcohol abuse; counselled on drinking cessation- started multivitamin, thiamine - ativan as needed -DVT prophylaxis with SCD's Discharge Planning when ok with ID and hand surgery. Jamie Arambula MD Jun 10, 2016 07:34
[2016-06-10] MEDS ORDERED: VITA100T2 PO (07:35)
[2016-06-10] MEDS ORDERED: THERTAB15 PO (07:35)
[2016-06-10] MEDS ORDERED: HYDR-3516 PO (07:35)
[2016-06-10] MEDS: THIAMINE HCL 100 MG TAB PO SCH (08:37)
[2016-06-10] MEDS: MULTIVITAMIN TAB PO SCH (08:37)
[2016-06-10] MEDS: NICOTINE 21 MG/24 HR PATCH TD SCH (08:38)
[2016-06-10] MEDS: REMOVE OLD NICOTINE PATCH TD SCH (08:38)
[2016-06-10] MEDS: PIPERACIL-TAZO 3.375 GM PREMIX 50 ML IV SCH ×2 (08:38)
[2016-06-10 11:17] VITALS: BP 141/76; PULSE 64; RESP 18; TEMP 98.5; O2SAT 95
[2016-06-10 13:40] VITALS: BP 178/81; PULSE 74; RESP 20; TEMP 97.1; O2SAT 98
--- NOTE | 2016-06-10 14:37 | HHI.IDPN ---
Note Infectious Disease Note Had I and D abscess antecubital fossa C/S neg after 24 hours First wound C/S polymicrobial BC negative Afebrile has been cleared by surgery for D/C PLAN: Give 10 days Cipro and Augmentin Orders written in [place] IV Abx D/C Lisset Bolton MD Jun 10, 2016 14:37
[2016-06-10] MEDS ORDERED: CIPROFLOXACIN 500 MG TAB PO SCH (15:00)
[2016-06-10] MEDS ORDERED: AMOXICILLIN/CLAVULANATE K 500 MG TAB PO SCH (15:00)
[2016-06-10 16:00] VITALS: BP 160/68; PULSE 80; RESP 20; TEMP 97; O2SAT 98
[2016-06-10] MEDS ORDERED: AUGM500T7 PO (16:51)
[2016-06-10] MEDS ORDERED: CIPR-9 PO (16:51)
--- NOTE | 2016-06-10 16:52 | HHI.DCPOC ---
Discharge Care Plan Diagnosis: (1) Cellulitis Your Health Problems Are: Inflammation Swelling Goals to Promote Your Health * To prevent worsening of your condition and complications * To maintain your health at the optimal level Directions to Meet Your Goals Take your medications as prescribed Follow your dietary instruction Follow activity as directed Keep your appointments as scheduled Take your immunizations and boosters as scheduled If your symptoms worsen call your PCP, if no PCP go to Urgent Care Center or Emergency Room Smoking is Dangerous to Your Health. Avoid second hand smoke Call the 24-hour hour crisis hotline for domestic abuse at Jamie Arambula MD Jun 10, 2016 16:52
--- NOTE | 2016-06-10 16:54 | HHI.DS ---
Discharge Summary Admission Date Jun 07, 2016 at 16:50 Discharge Date: Jun 10, 2016 Admitting Diagnosis ABSCESS, FAILURE OUTPT THERAPY, R/O SEPSIS/ENDOCARDITIS (1) Abscess ICD Code: L02.91 Diagnosis: Principal Procedures I/D of the right antecubital fossa abscess Brief History - From Admission patient is a 45 y/o female, IVDA, with history of hepatitis C,osteomyelitis, endocarditis,presented to ER with abscess of the right antecubital fossa. she says that it started five days ago and gradually got worse.she says that she had a couple of other abscesses on the left hand which she cut them open. she reports on and off fever at home. she takes amoxicillin. she's also complaining of worsening low back pain along with some weakness and numbness over the right leg which started two days ago. CBC/BMP: 06/09/16 0320 06/10/16 0615 Significant Findings Laboratory Tests Test 06/09/16 03:20 White Blood Count 3.3 TH/MM3 (4.0-11.0) Red Blood Count 3.69 MIL/MM3 (4.00-5.30) Platelet Count 117 TH/MM3 (150-450) Monocytes (%) (Auto) 10.1 % (0.0-8.0) Eosinophils (%) (Auto) 4.5 % (0.0-4.0) Neutrophils # (Auto) 1.6 TH/MM3 (1.8-7.7) Imaging Last Impressions Elbow X-Ray 06/08/16 0000 Signed Impressions: Service Date/Time: Wednesday, June 08, 2016 21:02 - CONCLUSION: No acute disease. Aj Torres MD Lumbar Spine MRI 06/07/16 0000 Signed Impressions: Service Date/Time: Tuesday, June 07, 2016 18:17 - CONCLUSION: 1. Residual changes are noted at the L4-5 level with decreased marrow edema and enhancement in the endplates. There is residual disc space narrowing. The inferior endplate of L4 is better defined. 2. No epidural abscess. 3. Mild disc bulge at L4-5 with mild flattening of the anterior thecal sac and no focal protrusion. There is narrowing of the neural foramina left greater than right. Uzair Pope MD Chest X-Ray 06/07/16 0000 Signed Impressions: Service Date/Time: Tuesday, June 07, 2016 14:37 - CONCLUSION: No acute disease. Natanael Martinez MD PE at Discharge GENERAL: This is a well-nourished, well-developed patient, in no apparent distress. CARDIOVASCULAR: Regular rate and regular rhythm without murmurs, gallops, or rubs. RESPIRATORY: Clear to auscultation. Breath sounds equal bilaterally. No wheezes , rales, or rhonchi. GASTROINTESTINAL: Abdomen soft, non-tender, nondistended. Normal, active bowel sounds MUSCULOSKELETAL: abscess of the right antecubital fossa NEURO: Alert & Oriented x4 to person, place, time, situation. Moves all ext x4 Hospital Course - abscess of the right antecubital fossa with history of IVDA- s/p I/D in ER and OR will switch to po antibiotics- follow the cultures- hand surgery and ID following. - back pain and numbness/ weakness of the right leg- improved MRI of lumbar spine with no epidural abscess -elevated LFT's with history of hepatitis C- f/u as outpatient -alcohol abuse; counselled on drinking cessation- started multivitamin, thiamine - ativan as needed -DVT prophylaxis with SCD's Pt Condition on Discharge: Good Discharge Disposition: Discharge Home Discharge Time: <= 30 minutes Discharge Instructions DIET: Follow Instructions for: Heart Healthy Diet Activities you can perform: Regular-No Restrictions Follow up Referrals: PCP Follow-up New Medications: Amoxicillin-Clavulanate (Augmentin) 500-125 mg Tab 500 MG PO Q8HR infection Days 10 Ref 0 TAB Ciprofloxacin (Cipro) 500 Mg Tab 500 MG PO Q12HR infection Days 10 Ref 0 TAB Hydrocodone-Acetaminophen (Hydrocodone-Acetaminophen) 5-325 mg Tab 1 TAB PO Q6HR PRN pain #15 Ref 0 TAB Multiple Vitamin (Thera/Beta-Carotene) 1 Tab Tab 1 TAB PO DAILY vitamins Days 30 Ref 0 TAB Thiamine (Vitamin B-1) 100 Mg Tab 100 MG PO DAILY vitamin Days 30 Ref 0 TAB Discontinued Medications: Amoxicillin (Amoxicillin) 500 Mg Cap 500 MG PO TID Infection Ref 0 CAP Jamie Arambula MD Jun 10, 2016 16:54
[2016-06-11] MEDS ORDERED: PHARMACY ORDERED LAB XX ONE (01:45)
== END 2016-06-10 17:51 | disposition home or self-care (01) | DRG 603 ==
LOC: NEPC 12:26 → NEDA 16:50 → NEPGCP 20:52 → HOCB 06-10 13:55
PROVIDERS: ADMIT Internal Medicine; ATTEND Internal Medicine
PROC: 0H9DXZZ Drainage of Right Lower Arm Skin, External Approach (ICD-10-PCS; 2016-06-07)
PROC: 0HDDXZZ Extraction of Right Lower Arm Skin, External Approach (ICD-10-PCS; principal; 2016-06-09 09:48)
DX: L02.413 Cutaneous abscess of right upper limb (principal); F11.10 Opioid abuse, uncomplicated; B19.20 Unspecified viral hepatitis C without hepatic coma; F10.10 Alcohol abuse, uncomplicated; F17.210 Nicotine dependence, cigarettes, uncomplicated; M54.5 Low back pain; R20.0 Anesthesia of skin; Z88.0 Allergy status to penicillin
CPT/HCPCS: 10060; 71010; 72158; 73070; 76937; 80048; 80053; 80202; 82550; 82565; 83605; 83735; 84484; 84702; 85025; 85610; 85652; 85730; 86140; 87015; 87040; 87070; 87077; 87102; 87116; 87186; 87205; 87206; 93005; 96361; 96374; 96375; A9579; J0131; J1170; J1885; J2250; J2405; J2543; J3010; J3370; J7030; J7050; J7120

== ENCOUNTER 2016-11-24 07:21 | Emergency (ER) | payer SELFPAY ==
[~2016-11-24] VITALS: Ht 149.9 cm; Wt 55.0 kg
[~2016-11-24 07:21] MED LIST changes: +AUGM500T7 PO; -BACT800T5 PO; +CIPR-9 PO; +HYDR-3516 PO; -PENVK500 PO; +THERTAB15 PO; +VITA100T2 PO
[2016-11-24 07:23] VITALS: BP 162/90; PULSE 84; RESP 16; TEMP 98.5; O2SAT 97
[2016-11-24 07:55] VITALS: RESP 16; O2SAT 96
[2016-11-24] MEDS ORDERED: MORPHINE SULFATE 8 MG/ML INJ IV PUSH ONE (08:00)
[2016-11-24] MEDS ORDERED: ONDANSETRON HCL 4 MG/2 ML VIAL IV ONE (08:00)
[2016-11-24] MEDS ORDERED: KETOROLAC TROMETHAMINE 30 MG/ML (IVP) VIAL IV PUSH ONE (08:15)
--- NOTE | 2016-11-24 08:16 | PD ---
HPI Chief Complaint: Numbness/Tingling Time Seen by Provider: 07:38 Travel History International Travel<30 days: No Contact w/Intl Traveler<30days: No Traveled to known affect area: No History of Present Illness HPI This is a 46-year-old female with a history of IVD drug use, who presents here today with complaints of numbness and tingling to her left arm. Patient also reports starts stabbing pain from her mid thoracic spine to her right shoulder. The patient has subjective fevers. There is no reported chills. The patient reports continued opiate use. She states she last used IV drugs yesterday. The patient was also supposed to be on antibiotics for osteomyelitis of her spine. She also has a history of endocarditis which she says is chronic. She reports that she is supposed to be on IV antibiotics for this. She states that she's not been on for several weeks. When asked why, patient reports that she could not get in to see Dr. Aparicio. The patient denies any weakness of her extremities. PFSH Past Medical History Hx Anticoagulant Therapy: No Arthritis: Yes (HANDS) Asthma: Yes Autoimmune Disease: Yes (LUPUS) Blood Disorders: No Anxiety: Yes Depression: No Cancer: No Cardiovascular Problems: Yes High Cholesterol: No Chemotherapy: No Chest Pain: Yes Congestive Heart Failure: No COPD: Yes Cerebrovascular Accident: No Diabetes: No Diminished Hearing: No Endocrine: No Gastrointestinal Disorders: No Genitourinary: No Hepatitis: Yes (C) Immune Disorder: Yes (LUPUS) Implanted Vascular Access Dvce: Yes Kidney Stones: No Musculoskeletal: Yes (SPINE PROBLEMS (NECK AND BACK)) Neurologic: No Psychiatric: Yes Reproductive: No Respiratory: No Immunizations Current: No Radiation Therapy: No Renal Failure: No Seizures: No Sleep Apnea: No Menopausal: Yes : 3 Para: 1 Miscarriage: 0 : 2 Ovarian Cysts: Yes Past Surgical History Abdominal Surgery: No AICD: No Arteriovenous Shunt: No Body Medical Devices: CADAVER BONE IN NECK Cardiac Surgery: No Section: Yes (X1) Ear Surgery: No Endocrine Surgery: No Eye Surgery: No Genitourinary Surgery: No Gynecologic Surgery: Yes (PARTIAL HYSTERECTOMY) Hysterectomy: Yes (PARTIAL) Insulin Pump: No Joint Replacement: No Neurologic Surgery: Yes ("NECK SURGERY") Oral Surgery: No Pacemaker: No Thoracic Surgery: No Other Surgery: Yes (cervical surgery, right wrist tendon repair) Social History Alcohol Use: Yes (DAILY; 1/5 vodka ) Tobacco Use: Yes (2 PPD) Substance Use: Yes (IV DILAUDID) Allergies-Medications (Allergen,Severity, Reaction): Coded Allergies: No Known Allergies (Unverified , 11/24/16) Reported Meds & Prescriptions Reported Meds & Active Scripts Active Lortab (Hydrocodone-Acetaminophen) 5-325 Mg Tab 1 Tab PO Q6H PRN Flexeril (Cyclobenzaprine HCl) 5 Mg Tab 5 Mg PO TID Review of Systems Except as stated in HPI: all other systems reviewed are Neg General / Constitutional: Positive: Fever, No: Chills HENT: Positive: Neck Pain (left lateral neck pain radiating to her left arm.), No: Headaches, Neck Stiffness Cardiovascular: No: Chest Pain or Discomfort, Palpitations Respiratory: No: Cough, Shortness of Breath Gastrointestinal: No: Nausea, Vomiting, Abdominal Pain Genitourinary: No: Frequency Musculoskeletal: Positive: Pain (pain in her left lateral neck rating to her left arm. Patient also has pain in her mid thoracic spine rating to her right shoulder.), No: Limited ROM, Weakness, Edema Neurologic: Positive: Other (numbness and tingling of left upper extremity.), No: Weakness, Focal Abnormalities, Headache Psychiatric: Positive: Substance Abuse, No: Disorder of Thought Physical Exam Narrative GENERAL: Well-developed well-nourished female in no acute respiratory distress. SKIN: Focused skin assessment warm/dry. There does appear to be a fresh track mayo in the right antecubital fossa. HEAD: Atraumatic. Normocephalic. EYES: Pupils equal and round. No scleral icterus. No injection or drainage. ENT: No nasal bleeding or discharge. Mucous membranes pink and moist. NECK: Trachea midline. Supple. The patient has no posterior spinous process tenderness. She has discomfort at the C4, C5 left paraspinous area. BACK: No CVA tenderness. No rash. Point tenderness at the T4-T5 level. No step -offs noted. No redness or rash noted. CARDIOVASCULAR: Regular rate and rhythm. No murmur appreciated. RESPIRATORY: No accessory muscle use. Clear to auscultation. Breath sounds equal bilaterally. GASTROINTESTINAL: Abdomen soft, non-tender, nondistended. Hepatic and splenic margins not palpable. MUSCULOSKELETAL: No obvious deformities. No clubbing. No cyanosis. No edema. NEUROLOGICAL: Awake and alert. No obvious cranial nerve deficits. Motor grossly within normal limits. Normal speech. Subjective tingling to her left arm. PSYCHIATRIC: Appropriate mood and affect; insight and judgment normal. Data Data Last Documented VS Vital Signs Date Time Temp Pulse Resp B/P Pulse Ox O2 Delivery O2 Flow Rate FiO2 11/24/16 11:50 97.8 87 16 114/71 98 Room Air Orders Complete Blood Count With Diff (11/24/16 07:49) Comprehensive Metabolic Panel (11/24/16 07:49) Lactic Acid Sepsis Protocol (11/24/16 07:49) Ckmb (Isoenzyme) Profile (11/24/16 07:49) Troponin I (11/24/16 07:49) Urinalysis - C+S If Indicated (11/24/16 07:49) Ua Includes Microscopic (11/24/16 07:49) Blood Culture (11/24/16 07:49) Chest, Single Ap (11/24/16 07:49) Blood Glucose (11/24/16 07:49) Ecg Monitoring (11/24/16 07:49) Iv Access Insert/Monitor (11/24/16 07:49) Oximetry (11/24/16 07:49) Oxygen Administration (11/24/16 07:49) Morphine Inj (Morphine Inj) (11/24/16 08:00) Ondansetron Inj (Zofran Inj) (11/24/16 08:00) Mri C Spine W&W/O Contrast (11/24/16 ) Mri T Spine W & W/O Contrast (11/24/16 ) Ketorolac Inj (Toradol Inj) (11/24/16 08:15) Lorazepam Inj (Ativan Inj) (11/24/16 09:15) Gadodiamide Pf Inj (Omniscan Pf Inj) (11/24/16 11:17) Labs Laboratory Tests Test 11/24/16 08:00 White Blood Count 6.1 TH/MM3 Red Blood Count 4.07 MIL/MM3 Hemoglobin 13.1 GM/DL Hematocrit 38.4 % Mean Corpuscular Volume 94.4 FL Mean Corpuscular Hemoglobin 32.2 PG Mean Corpuscular Hemoglobin 34.1 % Concent Red Cell Distribution Width 13.2 % Platelet Count 173 TH/MM3 Mean Platelet Volume 7.6 FL Neutrophils (%) (Auto) 54.0 % Lymphocytes (%) (Auto) 31.7 % Monocytes (%) (Auto) 11.5 % Eosinophils (%) (Auto) 2.5 % Basophils (%) (Auto) 0.3 % Neutrophils # (Auto) 3.3 TH/MM3 Lymphocytes # (Auto) 1.9 TH/MM3 Monocytes # (Auto) 0.7 TH/MM3 Eosinophils # (Auto) 0.2 TH/MM3 Basophils # (Auto) 0.0 TH/MM3 CBC Comment DIFF FINAL Differential Comment Urine Color YELLOW Urine Turbidity CLEAR Urine pH 6.0 Urine Specific Sasser 1.020 Urine Protein NEG mg/dL Urine Glucose (UA) NEG mg/dL Urine Ketones NEG mg/dL Urine Occult Blood NEG Urine Nitrite NEG Urine Bilirubin NEG Urine Urobilinogen LESS THAN 2.0 MG/DL Urine Leukocyte Esterase NEG Urine WBC 1 /hpf Urine Squamous Epithelial 3 /hpf Cells Urine Mucus FEW /lpf Microscopic Urinalysis Comment CATH-CULT NOT IND Sodium Level 141 MEQ/L Potassium Level 3.5 MEQ/L Chloride Level 107 MEQ/L Carbon Dioxide Level 23.9 MEQ/L Anion Gap 10 MEQ/L Blood Urea Nitrogen 12 MG/DL Creatinine 0.56 MG/DL Estimat Glomerular Filtration 116 ML/MIN Rate Random Glucose 69 MG/DL Lactic Acid Level 1.9 mmol/L Calcium Level 9.0 MG/DL Total Bilirubin 0.3 MG/DL Aspartate Amino Transf 64 U/L (AST/SGOT) Alanine Aminotransferase 36 U/L (ALT/SGPT) Alkaline Phosphatase 117 U/L Total Creatine Kinase 60 U/L Troponin I LESS THAN 0.02 NG/ML Total Protein 8.2 GM/DL Albumin 3.9 GM/DL [facility] Medical Decision Making Medical Screen Exam Complete: Yes Emergency Medical Condition: Yes Differential Diagnosis Recurrent osteomyelitis versus epidural abscess versus endocarditis Narrative Course 38-year-old female presents here with neck and back pain. The patient has a history of osteomyelitis of the spine. The patient's white count is normal. There is no fever. She initially said that she was supposed to be on chronic antibiotics for endocarditis however looking through notes. She was discharged with a round of Augmentin which she took and is not scheduled to be on any further antibiotics at this time. The patient's MRI of the T-spine and C-spine are negative. Given this, I do not feel that she has any infection at this time. She probably does have cervical strain and possible thoracic strains. She will be discharged. I did inform drug give her 10 Lortabs. She'll also be started on Flexeril 5 mg 3 times a day 5 days. I've encouraged her to go to [facility] for possible outpatient treatment. She will be given the information. She is requested a work note it which I will do. Diagnosis Primary Impression: Cervical strain Additional Impression: Thoracic myofascial strain Referrals: [facility] Additional Instructions: Stop using illicit drugs. Recommend following up with [facility] for possible outpatient treatment. Med/Other Pt SpecificInfo: Prescription(s) given Scripts Hydrocodone-Acetaminophen (Lortab)5-325 Mg Tab1 Tab PO Q6H PRN (PAIN) #10 TAB Ref 0 Prov:Samuel Moe MD 11/24/16 Cyclobenzaprine (Flexeril)5 Mg Tab5 Mg PO TID #15 TAB Ref 0 Prov:Samuel Moe MD 11/24/16 Disposition: 01 DISCHARGE HOME Condition: Stable Samuel Moe MD Nov 24, 2016 08:16
--- NOTE | 2016-11-24 08:26 | RADRPT ---
EXAM DATE/TIME: 11/24/2016 07:58 [facility] COMPARISON: CHEST SINGLE AP, June 07, 2016, 14:37. INDICATIONS : Chest pain for 3 days. MEDICAL HISTORY : Chronic obstructive pulmonary disease. Emphysema. Osteoarthritis. Ovarian cyst. Hep C. SURGICAL HISTORY : Hysterectomy. ENCOUNTER: Initial ACUITY: 3 days PAIN SCORE: 8/10 LOCATION: Bilateral posterior chest. FINDINGS: A single view of the chest demonstrates the lungs to be symmetrically aerated without evidence of mas s, infiltrate or effusion. The cardiomediastinal contours are unremarkable. Osseous structures are intact. CONCLUSION: 1. No acute cardiopulmonary disease. Jaswinder Mendiola MD on November 24, 2016 at 8:23 Board Certified Radiologist. This report was verified electronically.
[2016-11-24 08:42] LABS: AUTOMATED NEUTROPHIL # 3.3 TH/MM3 (1.8-7.7); BASOPHIL % 0.3 % (0.0-2.0); EOSINOPHIL # 0.2 TH/MM3 (0-0.4); EOSINOPHIL % 2.5 % (0.0-4.0); HEMATOCRIT 38.4 % (35.0-46.0); HEMO FLAGS DIFF FINAL; LYMPH % 31.7 % (9.0-44.0); LYMPHOCYTE # 1.9 TH/MM3 (1.0-4.8); MEAN CELL VOLUME 94.4 FL (80.0-100.0); MEAN CORPUSCULAR HEMOGLOBIN 32.2 PG (27.0-34.0); MEAN CORPUSCULAR HGB CONC 34.1 % (32.0-36.0); MONO % 11.5 % (0.0-8.0); PLATELET COUNT 173 TH/MM3 (150-450); RED BLOOD COUNT 4.07 MIL/MM3 (4.00-5.30); RED CELL DISTRIBUTION WIDTH 13.2 % (11.6-17.2); WHITE BLOOD COUNT 6.1 TH/MM3 (4.0-11.0)
[2016-11-24 08:49] LABS: BLOOD, URINE NEG (NEG); GLUCOSE,URINE NEG (NEG); KETONE, URINE NEG (NEG); MUCUS URINE FEW /lpf (OCC); NITRITE,URINE NEG (NEG); SQUAMOUS EPITHELIAL CELL URINE 3 /hpf (0-5); URINE COLOR YELLOW (YELLW/STRAW)
[2016-11-24 08:50] LABS: COMMENT (UR) CATH-CULT NOT IND; CULTURE IF INDICATED CATH CULTURE NOT IND
[2016-11-24 08:59] LABS: ANION GAP 10 MEQ/L (5-15); AST (GOT) 64 U/L (15-37); BICARBONATE 23.9 MEQ/L (21.0-32.0); BLOOD UREA NITROGEN 12 MG/DL (7-18); CHLORIDE 107 MEQ/L (98-107); GLOMERULAR FILTRATION RATE 116 ML/MIN (>89); POTASSIUM 3.5 MEQ/L (3.5-5.1); SODIUM (NA) 141 MEQ/L (136-145)
[2016-11-24 09:04] LABS: ALKALINE PHOSPHATASE 117 U/L (45-117); ALT (GPT) 36 U/L (10-53); TOTAL BILIRUBIN ADULT 0.3 MG/DL (0.2-1.0)
[2016-11-24 09:08] LABS: CREATINE KINASE 60 U/L (26-192)
[2016-11-24] MEDS ORDERED: LORazepam 2 MG/ML VIAL IV PUSH ONE (09:15)
[2016-11-24 09:25] VITALS: BP 142/81; PULSE 76; RESP 17; TEMP 97.8; O2SAT 97
[2016-11-24] MEDS ORDERED: GADODIAMIDE PF 287 MG/ML 5 ML VIAL (for RAD MRI) IV ONE (11:17)
--- NOTE | 2016-11-24 11:42 | RADRPT ---
EXAM DATE/TIME: 11/24/2016 10:03 [facility] COMPARISON: MRI THORACIC SPINE W & W/O CONTRAST, February 03, 2016, 17:54. INDICATIONS : Abscess. CONTRAST: 11 cc Omniscan (gadodiamide) IV MEDICAL HISTORY : Osteomyelitis. IV drug abuse. SURGICAL HISTORY : Fusion, cervical. Hysterectomy. ENCOUNTER: Initial ACUITY: 3 day PAIN SCORE: 5/10 LOCATION: back TECHNIQUE: Multiplanar multisequence MRI of the thoracic spine was performed. FINDINGS: VERTEBRA: Normal vertebral body height. Homogeneous marrow signal. ALIGNMENT: Normal. CORD: Normal position and configuration. POST CONTRAST: No abnormal areas of contrast enhancement seen. T1-T2: Normal. T2-T3: The thecal sac has a normal diameter. No evidence of disc bulge or protrusion. T3-T4: The thecal sac has a normal diameter. No evidence of disc bulge or protrusion. T4-T5: The thecal sac has a normal diameter. No evidence of disc bulge or protrusion. T5-T6: The thecal sac has a normal diameter. No evidence of disc bulge or protrusion. T6-T7: The thecal sac has a normal diameter. No evidence of disc bulge or protrusion. T7-T8: The thecal sac has a normal diameter. There is a tiny stable right paracentral disc bulge at this lev el. T8-T9: The thecal sac has a normal diameter. No evidence of disc bulge or protrusion. T9-T10: The thecal sac has a normal diameter. No evidence of disc bulge or protrusion. T10-T11: The thecal sac has a normal diameter. No evidence of disc bulge or protrusion. T11-T12: The thecal sac has a normal diameter. No evidence of disc bulge or protrusion. T12-L1: The thecal sac has a normal diameter. No evidence of disc bulge or protrusion. CONCLUSION: 1. No evidence of osteomyelitis or deep soft tissue abscess within the thoracic spine. 2. Tiny stable right paracentral disc bulge at T7-8. Kishore Helms MD on November 24, 2016 at 11:37 Board Certified Radiologist. This report was verified electronically.
[2016-11-24 11:50] VITALS: BP 114/71; PULSE 87; RESP 16; TEMP 97.8; O2SAT 98
--- NOTE | 2016-11-24 12:16 | RADRPT ---
EXAM DATE/TIME: 11/24/2016 10:03 [facility] COMPARISON: MRI CERVICAL SPINE W & W/O CONTRAST, February 03, 2016, 17:54. INDICATIONS : Abscess. CONTRAST: 11 cc Omniscan (gadodiamide) IV MEDICAL HISTORY : Osteomyelitis. IV drug abuse. SURGICAL HISTORY : Fusion, cervical. Hysterectomy. ENCOUNTER: Initial ACUITY: 3 day PAIN SCORE: 5/10 LOCATION: Neck TECHNIQUE: Multiplanar, multisequence MRI examination of the cervical spine was performed. FINDINGS: The patient is status post anterior cervical fusion from C5 through C7. No acute fracture or prevert ebral soft tissue swelling is noted. No abnormal enhancement is noted within the cervical spine. Th ere is no evidence of osteomyelitis or soft tissue abscess. The cervical spinal cord is normal in si gnal intensity and morphology. The craniocervical junction is normal. Mild cervical spondylosis is noted at C3-4, C4-5, C5-6 and C7-T1 and is stable. There is no significant change compared to 02/03/16 . CONCLUSION: 1. No evidence of osteomyelitis or soft tissue abscess formation. 2. Cervical spondylosis at C3-4, C4-5, C5-6 and C7-T1. 3. Status post anterior cervical fusion from C5 through C7. 4. No disc herniation or spinal stenosis. Kishore Helms MD on November 24, 2016 at 11:47 Board Certified Radiologist. This report was verified electronically.
[2016-11-24] MEDS ORDERED: CYCL5TAB PO (12:47)
[2016-11-24] MEDS ORDERED: HYDR-3533 PO (12:47)
[2016-11-24 13:10] VITALS: BP 124/77; TEMP 97.8
== END 2016-11-24 13:11 | disposition home or self-care (01) ==
LOC: NEPC 07:21
DX: S16.1XXA Strain of muscle, fascia and tendon at neck level, initial encounter (principal); S29.012A Strain of muscle and tendon of back wall of thorax, initial encounter; R50.9 Fever, unspecified; M32.9 Systemic lupus erythematosus, unspecified; J45.909 Unspecified asthma, uncomplicated; J44.9 Chronic obstructive pulmonary disease, unspecified; F41.9 Anxiety disorder, unspecified; B19.20 Unspecified viral hepatitis C without hepatic coma; X58.XXXA Exposure to other specified factors, initial encounter
CPT/HCPCS: 71010; 72156; 72157; 80053; 81001; 82550; 83605; 84484; 85025; 87040; 96374; 96375; 99285; A9579; J1885; J2060; J2270; J2405

== ENCOUNTER 2017-01-03 12:20 | Emergency (ER) | payer SELFPAY ==
[~2017-01-03] VITALS: Ht 149.9 cm; Wt 50.0 kg
[~2017-01-03 12:20] MED LIST changes: -AUGM500T7 PO; -CIPR-9 PO; +CYCL5TAB PO; -HYDR-3516 PO; +HYDR-3533 PO; -THERTAB15 PO; -VITA100T2 PO
[2017-01-03 12:24] VITALS: BP 124/82; PULSE 86; RESP 20; TEMP 98.5; O2SAT 97
--- NOTE | 2017-01-03 12:38 | PD ---
Physical Exam Date Seen by Provider: Jan 03, 2017 Time Seen by Provider: 12:32 Narrative 46 y/o female presents with burning painful vesicular rash to left hand and arm. started yesterday, and has progressively worsening. Patient has pain 10/ 10. Patient has Hx. Endocarditis. Vital signs reviewed. Patient stable. Awaiting Bed placement. Data Data Last Documented VS Vital Signs Date Time Temp Pulse Resp B/P Pulse Ox O2 Delivery O2 Flow Rate FiO2 01/03/17 12:24 98.5 86 20 124/82 97 MDM Medical Record Reviewed: Yes Supervised Visit with [facility]ARCI: Yes Condition: Stable Lobo Monae Jan 03, 2017 12:38
--- NOTE | 2017-01-03 13:13 | PD ---
HPI Chief Complaint: Skin Problem Time Seen by Provider: 13:13 Travel History International Travel<30 days: No Contact w/Intl Traveler<30days: No Traveled to known affect area: No History of Present Illness HPI 46-year-old female presents to emergency Department with complaint of a painful , itchy rash to her left hand and forearm that started yesterday. States the pain is 10/10. Reports subjective fever and chills. Denies nausea, vomiting. Says she thinks the rash is a shingles rash. Denies any environmental exposures to insects. Denies shingles vaccination. Has history of chickenpox. Has no other medical complaints. Symptoms are mild in severity. No other modifying factors or associated signs and symptoms. PFSH Past Medical History Hx Anticoagulant Therapy: No Arthritis: Yes (HANDS) Asthma: Yes Autoimmune Disease: Yes (LUPUS) Blood Disorders: No Anxiety: Yes Depression: No Cancer: No Cardiovascular Problems: Yes High Cholesterol: No Chemotherapy: No Chest Pain: Yes Congestive Heart Failure: No COPD: Yes Cerebrovascular Accident: No Diabetes: No Diminished Hearing: No Endocrine: No Gastrointestinal Disorders: No Genitourinary: No Hepatitis: Yes (C) Immune Disorder: Yes (LUPUS) Implanted Vascular Access Dvce: Yes Kidney Stones: No Musculoskeletal: Yes (SPINE PROBLEMS (NECK AND BACK)) Neurologic: No Psychiatric: Yes Reproductive: No Respiratory: No Immunizations Current: No Radiation Therapy: No Renal Failure: No Seizures: No Sleep Apnea: No Menopausal: Yes : 3 Para: 1 Miscarriage: 0 : 2 Ovarian Cysts: Yes Past Surgical History Abdominal Surgery: No AICD: No Arteriovenous Shunt: No Body Medical Devices: CADAVER BONE IN NECK Cardiac Surgery: No Section: Yes (X1) Ear Surgery: No Endocrine Surgery: No Eye Surgery: No Genitourinary Surgery: No Gynecologic Surgery: Yes (PARTIAL HYSTERECTOMY) Hysterectomy: Yes (PARTIAL) Insulin Pump: No Joint Replacement: No Neurologic Surgery: Yes ("NECK SURGERY") Oral Surgery: No Pacemaker: No Thoracic Surgery: No Other Surgery: Yes (cervical surgery, right wrist tendon repair) Social History Alcohol Use: Yes (DAILY; 1/5 vodka ) Tobacco Use: Yes (2 PPD) Substance Use: Yes (IV DILAUDID/ PERCOCET) Allergies-Medications (Allergen,Severity, Reaction): Coded Allergies: No Known Allergies (Unverified , 01/03/17) Reported Meds & Prescriptions Reported Meds & Active Scripts Active Ibuprofen 800 Mg Tab 800 Mg PO Q6HR PRN Acyclovir 800 Mg Tab 800 Mg PO 5 TIMES A DAY 7 Days Lortab (Hydrocodone-Acetaminophen) 5-325 Mg Tab 1 Tab PO Q6H PRN Flexeril (Cyclobenzaprine HCl) 5 Mg Tab 5 Mg PO TID Review of Systems Except as stated in HPI: all other systems reviewed are Neg Physical Exam Narrative GENERAL: Well-nourished, well-developed female patient, in no acute distress; afebrile, nontoxic-appearing SKIN: Warm and dry. Vesicular rash noted to in between fingers of left hand and to left forearm; without drainage,; without surrounding erythema and no signs of cellulitis. Left upper x-ray supple and nontender 2+ radial pulse and sensory intact. HEAD: Atraumatic. Normocephalic. EYES: Pupils equal and round. No scleral icterus. No injection or drainage. ENT: Mucosa pink and moist. Airway patent. NECK: Trachea midline. CARDIOVASCULAR: Regular rate. RESPIRATORY: No accessory muscle use. GASTROINTESTINAL: Flat. MUSCULOSKELETAL: No obvious deformities. No clubbing. No cyanosis. No edema. NEUROLOGICAL: Awake and alert. Oriented 3. No obvious cranial nerve deficits. Motor grossly within normal limits. Normal speech. PSYCHIATRIC: Appropriate mood and affect; insight and judgment normal. Data Data Last Documented VS Vital Signs Date Time Temp Pulse Resp B/P Pulse Ox O2 Delivery O2 Flow Rate FiO2 01/03/17 12:24 98.5 86 20 124/82 97 Orders Ketorolac Inj (Toradol Inj) (01/03/17 13:15) [facility] Medical Decision Making Medical Screen Exam Complete: Yes Emergency Medical Condition: Yes Medical Record Reviewed: Yes Differential Diagnosis Shingles, insect bites, nonspecific rash, vesicular rash Narrative Course 46-year-old female with fascicular rash to the left hand and forearm that she says is itchy and burning. Patient thinks that it is shingles. Patient is afebrile and nontoxic appearing. Toradol administered in the ER. Instructed patient to use [id number] antihistamines and topical anti-itch creams as directed and as needed for itch. Acyclovir and ibuprofen prescribed for home. Instructed patient to follow up with dermatology. Instructed patient to follow up with primary care provider. Patient verbalizes understanding and agreement with treatment plan. Patient is medically cleared and stable for discharge. Discussed reasons to return to the emergency department. Patient agrees with treatment plan. The patients vital signs are stable and the patient is stable for outpatient follow-up and treatment. Patient discharged home, stable and in no acute distress. Diagnosis Primary Impression: Vesicular rash Referrals: [facility] Primary Care Physician Patient Instructions: Acute Rash (ED), General Instructions, Shingles (ED) Departure Forms: Tests/Procedures, Work Release Enter return to work date: Jan 10, 2017 Additional Instructions: Take medications as prescribed Cold, wet compresses to the rash to help relieve itching and pain as needed Cool Bath to help relieve itching and pain as needed Benadryl as needed and as directed for itching Topical ointments as directed and as needed for itching Follow-up with a primary care provider Follow-up with [facility] har[facility] Return to the emergency department immediately with worsening of symptoms Med/Other Pt SpecificInfo: Prescription(s) given Scripts Ibuprofen 800 Mg [id number] Mg PO Q6HR PRN (PAIN) #30 TAB Ref 0 Prov:Carol Kelly 01/03/17 Acyclovir 800 Mg [id number] Mg PO 5 TIMES A DAY 7 Days Ref 0 Prov:Carol Kelly 01/03/17 Disposition: 01 DISCHARGE HOME Condition: Stable Carol Kelly Jan 03, 2017 13:13
[2017-01-03] MEDS ORDERED: ACYC800T PO (13:15)
[2017-01-03] MEDS ORDERED: KETOROLAC TROMETHAMINE 60 MG/2 ML (IM) VIAL IM ONE (13:15)
[2017-01-03] MEDS ORDERED: IBUP800T23 PO (13:15)
== END 2017-01-03 13:37 | disposition home or self-care (01) ==
LOC: NEPK 12:20
DX: R23.8 Other skin changes (principal); M32.10 Systemic lupus erythematosus, organ or system involvement unspecified
CPT/HCPCS: 96372; 99284; J1885

== ENCOUNTER 2017-01-04 13:43 | Emergency (ER) | payer SELFPAY ==
[~2017-01-04] VITALS: Ht 149.9 cm; Wt 50.0 kg
[~2017-01-04 13:43] MED LIST changes: +ACYC800T PO; +IBUP800T23 PO
[2017-01-04 14:03] VITALS: BP 137/75; PULSE 98; RESP 15; TEMP 98.5; O2SAT 99
--- NOTE | 2017-01-04 14:26 | PD ---
Physical Exam Time Seen by Provider: 14:25 Narrative 46 y/o female here for reevaluation of L forearm/hand vesicular rash for 3 days. Seen yesterday. Worst today. Vital signs reviewed. Seen at triage desk. Awaiting bed placement. [facility] Medical Record Reviewed: Yes Supervised Visit with [facility]: Scott Guardado Jan 04, 2017 14:26
== END 2017-01-04 14:49 | disposition left against medical advice (07) ==
LOC: NED 13:43
DX: R23.8 Other skin changes (principal)
CPT/HCPCS: 99281

== ENCOUNTER 2017-03-02 12:06 | Emergency (ER) | payer SELFPAY ==
[~2017-03-02] VITALS: Ht 149.9 cm; Wt 50.0 kg
[2017-03-02 12:08] VITALS: BP 141/83; PULSE 84; RESP 18; TEMP 98.1; O2SAT 96
--- NOTE | 2017-03-02 12:16 | PD ---
Physical Exam Date Seen by Provider: Mar 02, 2017 Time Seen by Provider: 12:14 Narrative 46 yo female here for evaluation of swelling, back pain and weakness. Going on for a few days. Back pain to both flanks. Per patient she was told she has liver failure and possible kidney issues. History of chronic alcohol abuse. She feels like she is swollen. pain is 8/10. No fevers, chills or sweats. Vitals stable in triage. Awaiting bed placement. Data Data Last Documented VS Vital Signs Date Time Temp Pulse Resp B/P (MAP) Pulse Ox O2 Delivery O2 Flow Rate FiO2 03/02/17 12:08 98.1 84 18 141/83 (102) 96 Room Air [facility] Medical Record Reviewed: Yes Supervised Visit with DARCI: Lobito Youssef Mar 02, 2017 12:16
[2017-03-02] MEDS ORDERED: HYDR-3580 PO (12:58)
--- NOTE | 2017-03-02 13:13 | PD ---
HPI Chief Complaint: Flank/Kidney Pain Time Seen by Provider: 13:11 Travel History International Travel<30 days: No Contact w/Intl Traveler<30days: No Traveled to known affect area: No History of Present Illness HPI 46-year-old female with history of cirrhosis, IV drug use, and complaints of lower back pain/flank pain. She also complains of abdominal discomfort, distention, and vomiting yesterday with reports of hemoptysis. Patient states she's been constipated but when she does move her bowels that is loose and dark. She has had about a week of fevers and chills. She also states night sweats which was worse last evening. Patient last used IV drugs yesterday consisting of IV Dilaudid. Patient states history of spinal osteomyelitis in the past treated with IV antibiotics inpatient. Patient states that she had cadaver bone displaced in her cervical spine secondary to osteomyelitis as well as surgery to the lower lumbar spine for degenerative disc disease. Patient has had recurrence of osteomyelitis last time being approximately one year ago. Patient also states she continues to drink alcohol despite diagnosis of cirrhosis. She denies history of pancreatitis. She denies shortness of breath or chest pain. She has no known drug allergies. PFSH Past Medical History Hx Anticoagulant Therapy: No Arthritis: Yes (HANDS) Asthma: Yes Autoimmune Disease: Yes (LUPUS) Blood Disorders: No Anxiety: Yes Depression: No Cancer: No Cardiovascular Problems: Yes High Cholesterol: No Chemotherapy: No Chest Pain: Yes Congestive Heart Failure: No COPD: Yes Cerebrovascular Accident: No Diabetes: No Diminished Hearing: No Endocrine: No Gastrointestinal Disorders: No Genitourinary: No Hepatitis: Yes (C) Immune Disorder: Yes (LUPUS) Implanted Vascular Access Dvce: Yes Kidney Stones: No Musculoskeletal: Yes (SPINE PROBLEMS (NECK AND BACK)) Neurologic: No Psychiatric: Yes Reproductive: No Respiratory: No Immunizations Current: No Radiation Therapy: No Renal Failure: No Seizures: No Sleep Apnea: No Tetanus Vaccination: < 5 Years ?: Not Menopausal: Yes : 3 Para: 1 Miscarriage: 0 : 2 Ovarian Cysts: Yes Past Surgical History Abdominal Surgery: No AICD: No Arteriovenous Shunt: No Body Medical Devices: CADAVER BONE IN NECK Cardiac Surgery: No Section: Yes (X1) Ear Surgery: No Endocrine Surgery: No Eye Surgery: No Genitourinary Surgery: No Gynecologic Surgery: Yes (PARTIAL HYSTERECTOMY) Hysterectomy: Yes (PARTIAL) Insulin Pump: No Joint Replacement: No Neurologic Surgery: Yes ("NECK SURGERY") Oral Surgery: No Pacemaker: No Thoracic Surgery: No Other Surgery: Yes (cervical surgery, right wrist tendon repair) Social History Alcohol Use: Yes (DAILY) Tobacco Use: Yes (2 PPD) Substance Use: Yes (iv dilaudid- 03/01/17) Allergies-Medications (Allergen,Severity, Reaction): Coded Allergies: No Known Allergies (Unverified , 01/04/17) Reported Meds & Prescriptions Reported Meds & Active Scripts Active Reported Hydrocodone-Acetaminophen 7.5-325 mg Tab 1 Tab PO Q4H PRN Review of Systems Except as stated in HPI: all other systems reviewed are Neg General / Constitutional: Positive: Fever, Chills Eyes: No: Visual changes HENT: No: Headaches Cardiovascular: No: Chest Pain or Discomfort Respiratory: No: Shortness of Breath Gastrointestinal: Positive: Nausea, Vomiting, Diarrhea, Abdominal Pain, Hematemesis, Constipation, Loss of Appetite Genitourinary: Positive: Decreased Urinary Output, No: Urgency, Frequency, Dysuria Musculoskeletal: Positive: Pain (low back pain) Skin: No Rash Neurologic: No: Weakness Psychiatric: No: Depression Endocrine: No: Polydipsia Hematologic/Lymphatic: No: Easy Bruising Physical Exam Narrative GENERAL: Patient appears anxious but otherwise in no significant distress. SKIN: Warm and dry. Color. Somewhat poor turgor with mild tenting. No obvious signs of cellulitis. HEAD: Atraumatic. Normocephalic. EYES: Pupils equal and round. No scleral icterus. No injection or drainage. ENT: No nasal bleeding or discharge. Mucous membranes pink and dry. Pharynx is clear. Airway is patent. NECK: Trachea midline. No JVD. Supple and nontender. CARDIOVASCULAR: Regular rate and rhythm. No murmurs appreciated. RESPIRATORY: No accessory muscle use. Clear to auscultation. Breath sounds equal bilaterally. GASTROINTESTINAL: Abdomen soft, diffuse moderate tenderness, mild distention. Liver is palpable, tender, and hard. No CVA tenderness. MUSCULOSKELETAL: Extremities without clubbing, cyanosis, or edema. No obvious deformities. Patient has tenderness in the sacroiliac region bilaterally. Patient does not have straight leg raise pain bilaterally. No weakness is noted in the lower extremity. NEUROLOGICAL: Awake and alert. No obvious cranial nerve deficits. Motor grossly within normal limits. Five out of 5 muscle strength in the arms and legs. Normal speech. PSYCHIATRIC: Appropriate mood and affect; insight and judgment normal. Data Data Last Documented VS Vital Signs Date Time Temp Pulse Resp B/P (MAP) Pulse Ox O2 Delivery O2 Flow Rate FiO2 03/02/17 16:44 16 03/02/17 16:27 82 120/70 (87) 97 Room Air 03/02/17 12:08 98.1 Orders Orders Complete Blood Count With Diff (03/02/17 12:16) Comprehensive Metabolic Panel (03/02/17 12:16) Lipase (03/02/17 12:16) Urinalysis - C+S If Indicated (03/02/17 12:16) Thyroid Stimulating Hormone (03/02/17 12:16) Ed Urine Pregnancytest Poc (03/02/17 12:16) Lactic Acid (03/02/17 13:18) Prothrombin Time / Inr (Pt) (03/02/17 13:18) Act Partial Throm Time (Ptt) (03/02/17 13:18) Iv Access Insert/Monitor (03/02/17 13:18) Ecg Monitoring (03/02/17 13:18) Oximetry (03/02/17 13:18) NPO (03/02/17 13:18) Morphine Inj (Morphine Inj) (03/02/17 13:30) Ondansetron Inj (Zofran Inj) (03/02/17 13:30) Sodium Chlor 0.9% 1000 Ml Inj (Ns 1000 M (03/02/17 13:18) Sodium Chloride 0.9% Flush (Ns Flush) (03/02/17 13:30) Electrocardiogram (03/02/17 13:18) Chest, Single Ap (03/02/17 13:18) Famotidine Inj (Pepcid Inj) (03/02/17 13:30) Blood Culture (03/02/17 13:28) Westergren Sedimentation Rate (03/02/17 13:37) C-Reactive Protein (Crp) (03/02/17 13:37) Mri L Spine W&W/O Contrast (03/02/17 13:18) Mri C Spine W&W/O Contrast (03/02/17 13:37) Mri T Spine W & W/O Contrast (03/02/17 13:37) Lorazepam (Ativan) (03/02/17 14:15) Gadodiamide Pf Inj (Omniscan Pf Inj) (03/02/17 16:00) Labs Laboratory Tests Test 03/02/17 12:30 03/02/17 12:53 03/02/17 13:52 03/02/17 13:53 White Blood Count 5.2 TH/MM3 Red Blood Count 4.23 MIL/MM3 Hemoglobin 14.2 GM/DL Hematocrit 42.1 % Mean Corpuscular Volume 99.4 FL Mean Corpuscular Hemoglobin 33.6 PG Mean Corpuscular Hemoglobin Concent 33.8 % Red Cell Distribution Width 14.0 % Platelet Count 195 TH/MM3 Mean Platelet Volume 7.5 FL Neutrophils (%) (Auto) 43.5 % Lymphocytes (%) (Auto) 42.7 % Monocytes (%) (Auto) 10.9 % Eosinophils (%) (Auto) 2.0 % Basophils (%) (Auto) 0.9 % Neutrophils # (Auto) 2.3 TH/MM3 Lymphocytes # (Auto) 2.2 TH/MM3 Monocytes # (Auto) 0.6 TH/MM3 Eosinophils # (Auto) 0.1 TH/MM3 Basophils # (Auto) 0.0 TH/MM3 CBC Comment DIFF FINAL Differential Comment Blood Urea Nitrogen 7 MG/DL Creatinine 0.54 MG/DL Random Glucose 97 MG/DL Total Protein 8.2 GM/DL Albumin 3.7 GM/DL Calcium Level 9.2 MG/DL Alkaline Phosphatase 167 U/L Aspartate Amino Transf (AST/SGOT) 71 U/L Alanine Aminotransferase (ALT/SGPT) 37 U/L Total Bilirubin 0.4 MG/DL Sodium Level 137 MEQ/L Potassium Level 4.0 MEQ/L Chloride Level 104 MEQ/L Carbon Dioxide Level 23.9 MEQ/L Anion Gap 9 MEQ/L Estimat Glomerular Filtration Rate 120 ML/MIN Lipase 89 U/L Thyroid Stimulating Hormone 3rd Gen 0.590 uIU/ML Urine Color LIGHT-YELLOW Urine Turbidity CLEAR Urine pH 6.5 Urine Specific [place] 1.003 Urine Protein NEG mg/dL Urine Glucose (UA) NEG mg/dL Urine Ketones NEG mg/dL Urine Occult Blood NEG Urine Nitrite NEG Urine Bilirubin NEG Urine Urobilinogen LESS THAN 2.0 MG/DL Urine Leukocyte Esterase NEG Urine WBC LESS THAN 1 /hpf Urine Squamous Epithelial Cells <1 /hpf Microscopic Urinalysis Comment CULT NOT INDICATED Prothrombin Time 10.7 SEC Prothromb Time International Ratio 1.0 RATIO Activated Partial Thromboplast Time 27.8 SEC Lactic Acid Level 1.5 mmol/L MDM Medical Decision Making Medical Screen Exam Complete: Yes Emergency Medical Condition: Yes Medical Record Reviewed: Yes Differential Diagnosis Urinary tract infection. Osteomyelitis. Cirrhosis. GI bleed. Bacteremia. Back pain. Narrative Course Patient appears medically stable at time of exam. Rectal exam shows the patient to be guaiac positive. Patient is discussed with and examined with Dr. Atkins. Labs ordered including CBC, CMP, lactic acid, sedimentation rate, CRP, blood cultures 2, and urinalysis. EKG and chest x-ray are ordered. MRI of the cervical, thoracic, and lumbar spine ordered to rule out osteomyelitis. IV access was obtained and the patient is given 4 mg morphine IV as well as 4 mg Zofran IV. Patient is given 20 mg Pepcid IV as well as 1000 mL normal saline bolus. Chest x-ray is unremarkable. Per radiologist. EKG shows normal sinus rhythm. CBC is unremarkable. CMP is unremarkable except for AST of 71 and alkaline phosphatase of 167. Lipase is normal at 89. Lactic acid is normal 1.5. Coagulation studies are normal. Urinalysis is unremarkable. MRIs of the cervical spine, thoracic spine, and lumbar spine show no signs of process or infection. Patient be discharged home on omeprazole 40 mg daily #30. Patient take Tylenol for her pain and follow-up with her pain management doctor. Diagnosis Primary Impression: Low back pain Qualified Codes: M54.5 - Low back pain Additional Impression: Gastritis Qualified Codes: K29.71 - Gastritis, unspecified, with bleeding Referrals: Pain Management Primary Care Physician Patient Instructions: Diet for Stomach Ulcers and Gastritis (ED), General Instructions Additional Instructions: Chest x-ray is unremarkable. Per radiologist. EKG shows normal sinus rhythm. CBC is unremarkable. CMP is unremarkable except for AST of 71 and alkaline phosphatase of 167. Lipase is normal at 89. Lactic acid is normal 1.5. Coagulation studies are normal. Urinalysis is unremarkable. MRIs of the cervical spine, thoracic spine, and lumbar spine show no signs of process or infection. Patient be discharged home on omeprazole 40 mg daily #30. Patient take Tylenol for her pain and follow-up with her pain management doctor. Med/Other Pt SpecificInfo: Prescription(s) given Disposition: 01 DISCHARGE HOME Condition: Stable Lobo Monae Mar 02, 2017 13:13
[2017-03-02 13:14] LABS: AUTOMATED NEUTROPHIL # 2.3 TH/MM3 (1.8-7.7); BASOPHIL % 0.9 % (0.0-2.0); EOSINOPHIL # 0.1 TH/MM3 (0-0.4); HEMATOCRIT 42.1 % (35.0-46.0); HEMO FLAGS DIFF FINAL; LYMPH % 42.7 % (9.0-44.0); LYMPHOCYTE # 2.2 TH/MM3 (1.0-4.8); MEAN CELL VOLUME 99.4 FL (80.0-100.0); MEAN CORPUSCULAR HEMOGLOBIN 33.6 PG (27.0-34.0); MEAN CORPUSCULAR HGB CONC 33.8 % (32.0-36.0); MONO % 10.9 % (0.0-8.0); NEUT % 43.5 % (16.0-70.0); PLATELET COUNT 195 TH/MM3 (150-450); RED BLOOD COUNT 4.23 MIL/MM3 (4.00-5.30); WHITE BLOOD COUNT 5.2 TH/MM3 (4.0-11.0)
[2017-03-02 13:18] LABS: BLOOD, URINE NEG (NEG); GLUCOSE,URINE NEG (NEG); KETONE, URINE NEG (NEG); NITRITE,URINE NEG (NEG); PH, URINE 6.5 (5.0-8.5); SQUAMOUS EPITHELIAL CELL URINE <1 /hpf (0-5); URINE COLOR LIGHT-YELLOW (YELLW/STRAW)
[2017-03-02] MEDS ORDERED: SODIUM CHLOR 0.9% 1000 ML INJ 1,000 ML IV SCH (13:18)
[2017-03-02 13:19] LABS: COMMENT (UR) CULT NOT INDICATED; CULTURE IF INDICATED CULT NOT INDICATED
[2017-03-02] MEDS ORDERED: SODIUM CHLORIDE 0.9% FLUSH 10 ML FLUSH IV FLUSH PRN (13:30)
[2017-03-02] MEDS ORDERED: ONDANSETRON HCL 4 MG/2 ML VIAL IVP ONE (13:30)
[2017-03-02] MEDS ORDERED: FAMOTIDINE 20 MG/2 ML VIAL IV PUSH ONE (13:30)
[2017-03-02] MEDS ORDERED: MORPHINE SULFATE 4 MG/ML INJ IV PUSH ONE (13:30)
[2017-03-02 13:31] LABS: ANION GAP 9 MEQ/L (5-15); AST (GOT) 71 U/L (15-37); BICARBONATE 23.9 MEQ/L (21.0-32.0); BLOOD UREA NITROGEN 7 MG/DL (7-18); CHLORIDE 104 MEQ/L (98-107); GLOMERULAR FILTRATION RATE 120 ML/MIN (>89); SODIUM (NA) 137 MEQ/L (136-145)
[2017-03-02 13:32] LABS: ALT (GPT) 37 U/L (10-53)
[2017-03-02 13:42] LABS: ALKALINE PHOSPHATASE 167 U/L (45-117); TOTAL BILIRUBIN ADULT 0.4 MG/DL (0.2-1.0)
--- NOTE | 2017-03-02 13:42 | RADRPT ---
EXAM DATE/TIME: 03/02/2017 13:34 [facility] COMPARISON: CHEST SINGLE AP, November 24, 2016, 7:58. INDICATIONS : Back pain. MEDICAL HISTORY : Osteomyelitis. IV drug use SURGICAL HISTORY : None. ENCOUNTER: Initial ACUITY: 1 day PAIN SCORE: Non-responsive. LOCATION: Bilateral chest FINDINGS: A single view of the chest demonstrates the lungs to be symmetrically aerated without evidence of mas s, infiltrate or effusion. The cardiomediastinal contours are unremarkable. Osseous structures are intact with some degenerative spurring of the dorsal spine. CONCLUSION: No acute cardiopulmonary process. Sriram Ríos MD on March 02, 2017 at 13:39 Board Certified Radiologist. This report was verified electronically.
[2017-03-02 14:08] VITALS: O2SAT 97
[2017-03-02] MEDS ORDERED: LORazepam 1 MG TAB PO ONE (14:15)
[2017-03-02 14:22] LABS: APTT (PATIENT) 27.8 SEC (24.3-30.1); PROTHROMBIN TIME - PATIENT 10.7 SEC (9.8-11.6)
[2017-03-02 14:30] VITALS: BP 115/68; PULSE 80; RESP 16; O2SAT 97
[2017-03-02] MEDS ORDERED: GADODIAMIDE PF 287 MG/ML 10 ML VIAL (for RAD MRI) IVCONTRAST ONE (16:00)
[2017-03-02 16:27] VITALS: BP 120/70; PULSE 82; RESP 15; O2SAT 97
[2017-03-02 16:44] VITALS: RESP 16
--- NOTE | 2017-03-02 16:47 | RADRPT ---
EXAM DATE/TIME: 03/02/2017 15:02 [facility] COMPARISON: MRI CERVICAL SPINE W & W/O CONTRAST, November 24, 2016, 10:03. CT CERVICAL SPINE W/O CONTRAST, September 11, 2014, 17:46. INDICATIONS : Osteomyelitis. IV drug use with back pain. CONTRAST: 10 cc Omniscan (gadodiamide) IV MEDICAL HISTORY : Chronic obstructive pulmonary disease. IVDU. SURGICAL HISTORY : Hysterectomy. Fusion, cervical. Lumbar debridement. Right wrist surgery. ENCOUNTER: Subsequent ACUITY: 4-6 days PAIN SCORE: 5/10 LOCATION: neck. TECHNIQUE: Multiplanar, multisequence MRI examination of the cervical spine was performed. FINDINGS: There is solid bony fusion between C5 and C7. Alignment is stable and satisfactory. Vertebral body ma rrow signal is homogeneous and benign throughout. There is no evidence of canal or foraminal compromi se. There is no evidence of paraspinal mass or collection. No abnormal enhancement is identified. CONCLUSION: Stable benign exam appearance Jameel Mcmahan MD on March 02, 2017 at 16:42 Board Certified Radiologist. This report was verified electronically.
--- NOTE | 2017-03-02 16:49 | PD ---
Data Data Last Documented VS Vital Signs Date Time Temp Pulse Resp B/P (MAP) Pulse Ox O2 Delivery O2 Flow Rate FiO2 03/02/17 16:27 82 15 120/70 (87) 97 Room Air 03/02/17 12:08 98.1 Orders Orders Complete Blood Count With Diff (03/02/17 12:16) Comprehensive Metabolic Panel (03/02/17 12:16) Lipase (03/02/17 12:16) Urinalysis - C+S If Indicated (03/02/17 12:16) Thyroid Stimulating Hormone (03/02/17 12:16) Ed Urine Pregnancytest Poc (03/02/17 12:16) Lactic Acid (03/02/17 13:18) Prothrombin Time / Inr (Pt) (03/02/17 13:18) Act Partial Throm Time (Ptt) (03/02/17 13:18) Iv Access Insert/Monitor (03/02/17 13:18) Ecg Monitoring (03/02/17 13:18) Oximetry (03/02/17 13:18) NPO (03/02/17 13:18) Morphine Inj (Morphine Inj) (03/02/17 13:30) Ondansetron Inj (Zofran Inj) (03/02/17 13:30) Sodium Chlor 0.9% 1000 Ml Inj (Ns 1000 M (03/02/17 13:18) Sodium Chloride 0.9% Flush (Ns Flush) (03/02/17 13:30) Electrocardiogram (03/02/17 13:18) Chest, Single Ap (03/02/17 13:18) Famotidine Inj (Pepcid Inj) (03/02/17 13:30) Blood Culture (03/02/17 13:28) Westergren Sedimentation Rate (03/02/17 13:37) C-Reactive Protein (Crp) (03/02/17 13:37) Mri L Spine W&W/O Contrast (03/02/17 13:18) Mri C Spine W&W/O Contrast (03/02/17 13:37) Mri T Spine W & W/O Contrast (03/02/17 13:37) Lorazepam (Ativan) (03/02/17 14:15) Gadodiamide Pf Inj (Omniscan Pf Inj) (03/02/17 16:00) Labs Laboratory Tests Test 03/02/17 12:30 03/02/17 12:53 03/02/17 13:52 03/02/17 13:53 White Blood Count 5.2 TH/MM3 Red Blood Count 4.23 MIL/MM3 Hemoglobin 14.2 GM/DL Hematocrit 42.1 % Mean Corpuscular Volume 99.4 FL Mean Corpuscular Hemoglobin 33.6 PG Mean Corpuscular Hemoglobin Concent 33.8 % Red Cell Distribution Width 14.0 % Platelet Count 195 TH/MM3 Mean Platelet Volume 7.5 FL Neutrophils (%) (Auto) 43.5 % Lymphocytes (%) (Auto) 42.7 % Monocytes (%) (Auto) 10.9 % Eosinophils (%) (Auto) 2.0 % Basophils (%) (Auto) 0.9 % Neutrophils # (Auto) 2.3 TH/MM3 Lymphocytes # (Auto) 2.2 TH/MM3 Monocytes # (Auto) 0.6 TH/MM3 Eosinophils # (Auto) 0.1 TH/MM3 Basophils # (Auto) 0.0 TH/MM3 CBC Comment DIFF FINAL Differential Comment Blood Urea Nitrogen 7 MG/DL Creatinine 0.54 MG/DL Random Glucose 97 MG/DL Total Protein 8.2 GM/DL Albumin 3.7 GM/DL Calcium Level 9.2 MG/DL Alkaline Phosphatase 167 U/L Aspartate Amino Transf (AST/SGOT) 71 U/L Alanine Aminotransferase (ALT/SGPT) 37 U/L Total Bilirubin 0.4 MG/DL Sodium Level 137 MEQ/L Potassium Level 4.0 MEQ/L Chloride Level 104 MEQ/L Carbon Dioxide Level 23.9 MEQ/L Anion Gap 9 MEQ/L Estimat Glomerular Filtration Rate 120 ML/MIN Lipase 89 U/L Thyroid Stimulating Hormone 3rd Gen 0.590 uIU/ML Urine Color LIGHT-YELLOW Urine Turbidity CLEAR Urine pH 6.5 Urine Specific [place] 1.003 Urine Protein NEG mg/dL Urine Glucose (UA) NEG mg/dL Urine Ketones NEG mg/dL Urine Occult Blood NEG Urine Nitrite NEG Urine Bilirubin NEG Urine Urobilinogen LESS THAN 2.0 MG/DL Urine Leukocyte Esterase NEG Urine WBC LESS THAN 1 /hpf Urine Squamous Epithelial Cells <1 /hpf Microscopic Urinalysis Comment CULT NOT INDICATED Prothrombin Time 10.7 SEC Prothromb Time International Ratio 1.0 RATIO Activated Partial Thromboplast Time 27.8 SEC Lactic Acid Level 1.5 mmol/L [facility] Supervised Visit with [facility]: Yes Narrative Course The history, exam, and medical decision-making in the associated mid-level provider note were completed with my assistance. I reviewed and agree with the findings presented. I attest that I had a [id number] encounter with the patient on the same day, and personally performed and documented my assessment and findings in the medical record. *My assessment and Findings: Is a 46-year-old woman presents to the emergency department with a history of active IV drug use, osteomyelitis, presents complaining of severe lower back pain as well as some unusual facial skin symptoms. She looks well. Her exam is overall unremarkable. We'll MRI to ensure she has no osteomyelitis or recurrent epidural abscess, otherwise outpatient follow-up. Condition: Stable Sohail Atkins MD Mar 02, 2017 16:49
--- NOTE | 2017-03-02 16:50 | RADRPT ---
EXAM DATE/TIME: 03/02/2017 15:02 [facility] COMPARISON: MRI THORACIC SPINE W & W/O CONTRAST, November 24, 2016, 10:03. INDICATIONS : Osteomyelitis. IV drug use with back pain. CONTRAST: 10 cc Omniscan (gadodiamide) IV MEDICAL HISTORY : Chronic obstructive pulmonary disease. IVDU. SURGICAL HISTORY : Hysterectomy. Fusion, cervical. Lumbar debridement. Right wrist surgery. ENCOUNTER: Subsequent ACUITY: 4-6 days PAIN SCORE: 5/10 LOCATION: back. TECHNIQUE: Multiplanar multisequence MRI of the thoracic spine was performed. FINDINGS: Thoracic spine alignment is stable and satisfactory. Marrow signal is homogeneous and benign througho ut. There is a stable miniscule central disc protrusion at T5-6 and a small stable right paracentral disc protrusion at T7-8 minimally indenting thecal sac. No significant canal or foraminal compromise. There is no evidence of paraspinal mass or collection and no abnormal enhancement is present. CONCLUSION: Stable benign appearance Jameel Mcmahan MD on March 02, 2017 at 16:46 Board Certified Radiologist. This report was verified electronically.
--- NOTE | 2017-03-02 16:54 | RADRPT ---
EXAM DATE/TIME: 03/02/2017 15:02 [facility] COMPARISON: MRI LUMBAR SPINE W & W/O CONTRAST, June 07, 2016, 18:17. INDICATIONS : Osteomyelitis. IV drug use with back pain. CONTRAST: 10 cc Omniscan (gadodiamide) IV MEDICAL HISTORY : Chronic obstructive pulmonary disease. IVDU. SURGICAL HISTORY : Hysterectomy. Fusion, cervical. Lumbar debridement. Right wrist. ENCOUNTER: Subsequent ACUITY: 4-6 days PAIN SCORE: 5/10 LOCATION: back. TECHNIQUE: Multiplanar multisequence MRI of the lumbar spine was performed with and without contrast. FINDINGS: Alignment is stable and satisfactory. There is significant disc space loss at L4-5 with Schmorl node type inferior endplate deformity at L4. There is no evidence of disc signal or enhancement to suggest active discitis. No suspicious signal changes in the vertebra to suggest active osteomyelitis. There is slight annular disc bulge with minimal broad superimposed dorsal protrusion mildly asymmetric to the left which is unchanged. Mild asymmetrically left-sided foraminal narrowing present. Other levels are stable and unremarkable. There is no evidence of paraspinal mass or collection. CONCLUSION: Sequela of disc degeneration and/or discitis at L4-5 with no findings to suggest active ongoing infec tion or other acute process. Jameel Mcmahan MD on March 02, 2017 at 16:48 Board Certified Radiologist. This report was verified electronically.
[2017-03-02] MEDS ORDERED: OMEP40CA2 PO (17:07)
--- NOTE | 2017-03-03 14:54 | EKG ---
Date Performed: 03/02/2017 Time Performed: 14:00:00 PTAGE: 46 years EKG: Sinus rhythm POSSIBLE LEFT ATRIAL ENLARGEMENT BORDERLINE ECG PREVIOUS TRACING : 06/07/2016 13.56 Compared to prior tracing no significant change DOCTOR: Raul Plummer Interpretating Date/Time 03/03/2017 14:52:42
== END 2017-03-02 17:42 | disposition home or self-care (01) ==
LOC: NEPD 12:06
DX: M54.5 Low back pain (principal); K29.70 Gastritis, unspecified, without bleeding; M32.9 Systemic lupus erythematosus, unspecified; B19.20 Unspecified viral hepatitis C without hepatic coma; J44.9 Chronic obstructive pulmonary disease, unspecified; M19.90 Unspecified osteoarthritis, unspecified site; K74.60 Unspecified cirrhosis of liver; M86.9 Osteomyelitis, unspecified; F17.200 Nicotine dependence, unspecified, uncomplicated
CPT/HCPCS: 71010; 72156; 72157; 72158; 80053; 81001; 83605; 83690; 84443; 84703; 85025; 85610; 85730; 86140; 87040; 93005; 96361; 96374; 96375; 99285; A9579; J2270; J2405; J7030

== ENCOUNTER 2017-05-27 16:08 | Observation (INO) | payer SELFPAY ==
[~2017-05-27] VITALS: Ht 149.9 cm; Wt 50.0 kg
[~2017-05-27 16:08] MED LIST changes: -ACYC800T PO; -CYCL5TAB PO; -HYDR-3533 PO; +HYDR-3580 PO; -IBUP800T23 PO; +OMEP40CA2 PO
[2017-05-27] MEDS ORDERED: IOHEXOL 350 MG/ML 10 ML VIAL (for RAD DIAG) IVCONTRAST ONE (16:09)
[2017-05-27 16:10] VITALS: BP 173/105; PULSE 93; RESP 20; TEMP 98; O2SAT 96
[2017-05-27 17:09] LABS: AUTOMATED NEUTROPHIL # 2.4 TH/MM3 (1.8-7.7); BASOPHIL % 0.6 % (0.0-2.0); BILIRUBIN, URINE NEG (NEG); BLOOD, URINE NEG (NEG); EOSINOPHIL % 0.8 % (0.0-4.0); GLUCOSE,URINE NEG (NEG); HEMATOCRIT 43.7 % (35.0-46.0); HEMOGLOBIN 14.7 GM/DL (11.6-15.3); KETONE, URINE NEG (NEG); LYMPH % 43.1 % (9.0-44.0); LYMPHOCYTE # 2.2 TH/MM3 (1.0-4.8); MEAN CELL VOLUME 100.3 FL (80.0-100.0); MEAN CORPUSCULAR HEMOGLOBIN 33.7 PG (27.0-34.0); MEAN CORPUSCULAR HGB CONC 33.6 % (32.0-36.0); MEAN PLATELET VOLUME 8.4 FL (7.0-11.0); MONO % 9.2 % (0.0-8.0); MONOCYTE # 0.5 TH/MM3 (0-0.9); NEUT % 46.3 % (16.0-70.0); NITRITE,URINE NEG (NEG); PLATELET COUNT 101 TH/MM3 (150-450); RED BLOOD COUNT 4.36 MIL/MM3 (4.00-5.30); RED CELL DISTRIBUTION WIDTH 14.7 % (11.6-17.2); URINE COLOR LIGHT-YELLOW (YELLW/STRAW); URINE LEUKOCYTE ESTERASE NEG (NEG); WHITE BLOOD COUNT 5.1 TH/MM3 (4.0-11.0)
[2017-05-27 17:24] LABS: ALBUMIN 4.4 GM/DL (3.4-5.0); ALT (GPT) 66 U/L (10-53); AST (GOT) 233 U/L (15-37); BLOOD UREA NITROGEN 5 MG/DL (7-18); CALCIUM 9.2 MG/DL (8.5-10.1); CHLORIDE 100 MEQ/L (98-107); CREATININE 0.59 MG/DL (0.50-1.00); GLOMERULAR FILTRATION RATE 109 ML/MIN (>89); GLUCOSE,RANDOM 95 MG/DL (74-106); LIPASE 271 U/L (73-393); SODIUM (NA) 138 MEQ/L (136-145)
[2017-05-27 17:27] LABS: ALKALINE PHOSPHATASE 202 U/L (45-117); TOTAL BILIRUBIN ADULT 0.6 MG/DL (0.2-1.0)
[2017-05-27] MEDS ORDERED: SODIUM CHLOR 0.9% 1000 ML INJ 1,000 ML IV SCH (17:59)
[2017-05-27] MEDS ORDERED: LIDOCAINE VISCOUS 2% SOLN 15 ML UDC PO ONE (18:00)
[2017-05-27] MEDS ORDERED: ONDANSETRON HCL 4 MG/2 ML VIAL IVP ONE (18:00)
[2017-05-27] MEDS ORDERED: DICYCLOMINE HCL 20 MG/2 ML VIAL IM ONE (18:00)
[2017-05-27] MEDS ORDERED: ALUMINUM/MAGNESIUM/SIMETH 30 ML CUP PO ONE (18:00)
[2017-05-27] MEDS ORDERED: SODIUM CHLORIDE 0.9% FLUSH 10 ML FLUSH IV FLUSH PRN ×2 (18:00→20:30)
[2017-05-27 18:36] VITALS: O2SAT 99
--- NOTE | 2017-05-27 19:01 | PD ---
HPI Chief Complaint: GI Complaint Time Seen by Provider: 17:46 Travel History International Travel<30 days: No Contact w/Intl Traveler<30days: No Traveled to known affect area: No History of Present Illness HPI The patient is 38 years old and complains of abdominal pain nausea vomiting and sore throat. The symptoms have present for 3 or 4 days. Onset was gradual. She reports subjective fever at home. She reports severe pain in the posterior oropharynx preventing her with swallowing normally. No abnormal discharge or bleeding. Patient reports a history of IV drug abuse however reports no IV drug abuse for the last 2 months. She also reports less than on the way loss the last 3 days. PFSH Past Medical History Hx Anticoagulant Therapy: No Arthritis: Yes (HANDS) Asthma: Yes Autoimmune Disease: Yes (LUPUS) Blood Disorders: No Anxiety: Yes Depression: No Cancer: No Cardiovascular Problems: Yes High Cholesterol: No Chemotherapy: No Chest Pain: Yes Congestive Heart Failure: No COPD: Yes Cerebrovascular Accident: No Diabetes: No Diminished Hearing: No Endocrine: No Gastrointestinal Disorders: No Genitourinary: No Hepatitis: Yes (C) Immune Disorder: Yes (LUPUS) Implanted Vascular Access Dvce: Yes Kidney Stones: No Musculoskeletal: Yes (SPINE PROBLEMS (NECK AND BACK)) Neurologic: No Psychiatric: Yes Reproductive: No Respiratory: No Immunizations Current: No Radiation Therapy: No Renal Failure: No Seizures: No Sleep Apnea: No ?: Not Menopausal: Yes : 3 Para: 1 Miscarriage: 0 : 2 Ovarian Cysts: Yes Past Surgical History Abdominal Surgery: No AICD: No Arteriovenous Shunt: No Body Medical Devices: CADAVER BONE IN NECK Cardiac Surgery: No Section: Yes (X1) Ear Surgery: No Endocrine Surgery: No Eye Surgery: No Genitourinary Surgery: No Gynecologic Surgery: Yes (PARTIAL HYSTERECTOMY) Hysterectomy: Yes (PARTIAL) Insulin Pump: No Joint Replacement: No Neurologic Surgery: Yes ("NECK SURGERY") Oral Surgery: No Pacemaker: No Thoracic Surgery: No Other Surgery: Yes (cervical surgery, right wrist tendon repair) Social History Alcohol Use: Yes (DAILY) Tobacco Use: Yes (2 PPD) Substance Use: Yes (iv dilaudid- 03/01/17) Allergies-Medications (Allergen,Severity, Reaction): Coded Allergies: No Known Allergies (Unverified , 01/04/17) Reported Meds & Prescriptions Reported Meds & Active Scripts Active Omeprazole 40 Mg Cap 40 Mg PO DAILY Reported Hydrocodone-Acetaminophen 7.5-325 mg Tab 1 Tab PO Q4H PRN Review of Systems Except as stated in HPI: all other systems reviewed are Neg General / Constitutional: No: Fever Physical Exam Narrative GENERAL: 46-year-old female somewhat thin mild to moderate distress SKIN: Focused skin assessment warm/dry. HEAD: Atraumatic. Normocephalic. EYES: Pupils equal and round. No scleral icterus. No injection or drainage. ENT: No nasal bleeding or discharge. Mucous membranes pink and moist. NECK: Trachea midline. No JVD. CARDIOVASCULAR: Regular rate and rhythm. No murmur appreciated. RESPIRATORY: No accessory muscle use. Clear to auscultation. Breath sounds equal bilaterally. GASTROINTESTINAL: Soft. Generalized tenderness present. MUSCULOSKELETAL: No obvious deformities. No clubbing. No cyanosis. No edema. NEUROLOGICAL: Awake and alert. No obvious cranial nerve deficits. Motor grossly within normal limits. Normal speech. PSYCHIATRIC: Appropriate mood and affect; insight and judgment normal. Data Data Last Documented VS Vital Signs Date Time Temp Pulse Resp B/P (MAP) Pulse Ox O2 Delivery O2 Flow Rate FiO2 05/27/17 18:36 18 05/27/17 18:36 99 Room Air 05/27/17 16:10 98.0 93 Vital Signs Date Time Temp Pulse Resp B/P (MAP) Pulse Ox O2 Delivery O2 Flow Rate FiO2 05/27/17 18:36 18 05/27/17 18:36 99 Room Air 05/27/17 16:10 98.0 93 20 173/105 (127) 96 Room Air Orders Orders Complete Blood Count With Diff (05/27/17 16:22) Comprehensive Metabolic Panel (05/27/17 16:22) Lipase (05/27/17 16:22) Prothrombin Time / Inr (Pt) (05/27/17 16:22) Act Partial Throm Time (Ptt) (05/27/17 16:22) Urinalysis - C+S If Indicated (05/27/17 16:22) Ct Abd/Pel W Iv Contrast(Rout) (05/27/17 17:59) Iv Access Insert/Monitor (05/27/17 17:59) Ecg Monitoring (05/27/17 17:59) Oximetry (05/27/17 17:59) Ondansetron Inj (Zofran Inj) (05/27/17 18:00) Sodium Chlor 0.9% 1000 Ml Inj (Ns 1000 M (05/27/17 17:59) Sodium Chloride 0.9% Flush (Ns Flush) (05/27/17 18:00) Dicyclomine Inj (Bentyl Inj) (05/27/17 18:00) Al-Mag Hy-Si 40-40-4 Mg/Ml Liq (Mag-Al P (05/27/17 18:00) Lidocaine 2% Viscous (Xylocaine 2% Visco (05/27/17 18:00) Labs Laboratory Tests Test 05/27/17 16:45 White Blood Count 5.1 TH/MM3 Red Blood Count 4.36 MIL/MM3 Hemoglobin 14.7 GM/DL Hematocrit 43.7 % Mean Corpuscular Volume 100.3 FL Mean Corpuscular Hemoglobin 33.7 PG Mean Corpuscular Hemoglobin Concent 33.6 % Red Cell Distribution Width 14.7 % Platelet Count 101 TH/MM3 Mean Platelet Volume 8.4 FL Neutrophils (%) (Auto) 46.3 % Lymphocytes (%) (Auto) 43.1 % Monocytes (%) (Auto) 9.2 % Eosinophils (%) (Auto) 0.8 % Basophils (%) (Auto) 0.6 % Neutrophils # (Auto) 2.4 TH/MM3 Lymphocytes # (Auto) 2.2 TH/MM3 Monocytes # (Auto) 0.5 TH/MM3 Eosinophils # (Auto) 0.0 TH/MM3 Basophils # (Auto) 0.0 TH/MM3 CBC Comment DIFF FINAL Differential Comment Prothrombin Time 10.0 SEC Prothromb Time International Ratio 1.0 RATIO Activated Partial Thromboplast Time 26.2 SEC Urine Color LIGHT-YELLOW Urine Turbidity CLEAR Urine pH 7.0 Urine Specific [place] 1.002 Urine Protein NEG mg/dL Urine Glucose (UA) NEG mg/dL Urine Ketones NEG mg/dL Urine Occult Blood NEG Urine Nitrite NEG Urine Bilirubin NEG Urine Urobilinogen LESS THAN 2.0 MG/DL Urine Leukocyte Esterase NEG Microscopic Urinalysis Comment CULT NOT INDICATED Blood Urea Nitrogen 5 MG/DL Creatinine 0.59 MG/DL Random Glucose 95 MG/DL Total Protein 9.0 GM/DL Albumin 4.4 GM/DL Calcium Level 9.2 MG/DL Alkaline Phosphatase 202 U/L Aspartate Amino Transf (AST/SGOT) 233 U/L Alanine Aminotransferase (ALT/SGPT) 66 U/L Total Bilirubin 0.6 MG/DL Sodium Level 138 MEQ/L Potassium Level 3.9 MEQ/L Chloride Level 100 MEQ/L Carbon Dioxide Level 27.0 MEQ/L Anion Gap 11 MEQ/L Estimat Glomerular Filtration Rate 109 ML/MIN Lipase 271 U/L MDM Medical Decision Making Medical Screen Exam Complete: Yes Emergency Medical Condition: Yes Medical Record Reviewed: Yes Differential Diagnosis Constipation, Gastritis, Acute Cholecystitis, Biliary Colic, Pancreatitis, MARTINEZ , Hepatitis, Bowel Obstruction, Cystitis, Mesenteric Ischemia, AAA, Appendicitis , Renal Stone/Hydronephrosis, GERD, perforated viscous Narrative Course CBC & BMP Diagram 05/27/17 16:45 Total Protein 9.0 H, Albumin 4.4, Calcium Level 9.2, Alkaline Phosphatase 202 H , Aspartate Amino Transf (AST/SGOT) 233 H, Alanine Aminotransferase (ALT/SGPT) 66 H, Total Bilirubin 0.6 Antony Denny MD May 27, 2017 19:01
--- NOTE | 2017-05-27 19:08 | RADRPT ---
EXAM DATE/TIME: 05/27/2017 18:35 [facility] COMPARISON: CT ABDOMEN & PELVIS W CONTRAST, February 23, 2014, 22:11. INDICATIONS : Abdomen pain with nausea and vomiting past 2 days. IV CONTRAST: 80 cc Omnipaque 350 (iohexol) IV ORAL CONTRAST: No oral contrast ingested. RADIATION DOSE: 6.64 CTDIvol (mGy) MEDICAL HISTORY : Cirrhosis. Hepatitis C. SURGICAL HISTORY : None. ENCOUNTER: Initial ACUITY: 2 days PAIN SCALE: 6/10 LOCATION: Bilateral abdomen TECHNIQUE: Volumetric scanning of the abdomen and pelvis was performed. Using automated exposure control and ad justment of the mA and/or kV according to patient size, radiation dose was kept as low as reasonably achievable to obtain optimal diagnostic quality images. DICOM format image data is available electro nically for review and comparison. FINDINGS: LOWER LUNGS: The visualized lower lungs are clear. LIVER: The liver remains prominent with moderate diffuse hepatic steatosis. The gallbladder is unremarkable in appearance no calcified gallstones. SPLEEN: Normal size without lesion. PANCREAS: Within normal limits. KIDNEYS: Normal in size and shape. There is no mass, stone or hydronephrosis. ADRENAL GLANDS: Within normal limits. VASCULAR: There is no aortic aneurysm. BOWEL/MESENTERY: The stomach is unremarkable. There are multiple loops of nondilated air-containing small bowel with m ultiple small air-fluid levels. There is no free air or fluid. No oral contrast was given limiting th e sensitivity of the exam. The terminal ileum appears unremarkable. There is no free intraperitoneal air or fluid. ABDOMINAL WALL: Within normal limits. RETROPERITONEUM: There is no lymphadenopathy. BLADDER: No wall thickening or mass. REPRODUCTIVE: Within normal limits. INGUINAL: There is no lymphadenopathy or hernia. MUSCULOSKELETAL: Within normal limits for patient age. CONCLUSION: 1. Mildly nonspecific, nonobstructive bowel gas pattern which may represent a mild ileus and/or gastr oenteritis. An early or partial small bowel obstruction is much less likely. There is no transition p oint or inflammatory change. 2. Prominent liver with moderate hepatic steatosis. 3. Unremarkable gallbladder. Uzair Pope MD on May 27, 2017 at 19:04 Board Certified Radiologist. This report was verified electronically.
--- NOTE | 2017-05-27 19:21 | PD ---
Data Data Last Documented VS Vital Signs Date Time Temp Pulse Resp B/P (MAP) Pulse Ox O2 Delivery O2 Flow Rate FiO2 05/27/17 19:44 78 18 139/84 (102) 98 Room Air 05/27/17 16:10 98.0 Orders Orders Complete Blood Count With Diff (05/27/17 16:22) Comprehensive Metabolic Panel (05/27/17 16:22) Lipase (05/27/17 16:22) Prothrombin Time / Inr (Pt) (05/27/17 16:22) Act Partial Throm Time (Ptt) (05/27/17 16:22) Urinalysis - C+S If Indicated (05/27/17 16:22) Ct Abd/Pel W Iv Contrast(Rout) (05/27/17 17:59) Iv Access Insert/Monitor (05/27/17 17:59) Ecg Monitoring (05/27/17 17:59) Oximetry (05/27/17 17:59) Ondansetron Inj (Zofran Inj) (05/27/17 18:00) Sodium Chlor 0.9% 1000 Ml Inj (Ns 1000 M (05/27/17 17:59) Sodium Chloride 0.9% Flush (Ns Flush) (05/27/17 18:00) Dicyclomine Inj (Bentyl Inj) (05/27/17 18:00) Al-Mag Hy-Si 40-40-4 Mg/Ml Liq (Mag-Al P (05/27/17 18:00) Lidocaine 2% Viscous (Xylocaine 2% Visco (05/27/17 18:00) Iohexol 350 Inj (Omnipaque 350 Inj) (05/27/17 16:09) Oral Rehydration (05/27/17 19:49) Labs Laboratory Tests Test 05/27/17 16:45 White Blood Count 5.1 TH/MM3 Red Blood Count 4.36 MIL/MM3 Hemoglobin 14.7 GM/DL Hematocrit 43.7 % Mean Corpuscular Volume 100.3 FL Mean Corpuscular Hemoglobin 33.7 PG Mean Corpuscular Hemoglobin Concent 33.6 % Red Cell Distribution Width 14.7 % Platelet Count 101 TH/MM3 Mean Platelet Volume 8.4 FL Neutrophils (%) (Auto) 46.3 % Lymphocytes (%) (Auto) 43.1 % Monocytes (%) (Auto) 9.2 % Eosinophils (%) (Auto) 0.8 % Basophils (%) (Auto) 0.6 % Neutrophils # (Auto) 2.4 TH/MM3 Lymphocytes # (Auto) 2.2 TH/MM3 Monocytes # (Auto) 0.5 TH/MM3 Eosinophils # (Auto) 0.0 TH/MM3 Basophils # (Auto) 0.0 TH/MM3 CBC Comment DIFF FINAL Differential Comment Prothrombin Time 10.0 SEC Prothromb Time International Ratio 1.0 RATIO Activated Partial Thromboplast Time 26.2 SEC Urine Color LIGHT-YELLOW Urine Turbidity CLEAR Urine pH 7.0 Urine Specific [place] 1.002 Urine Protein NEG mg/dL Urine Glucose (UA) NEG mg/dL Urine Ketones NEG mg/dL Urine Occult Blood NEG Urine Nitrite NEG Urine Bilirubin NEG Urine Urobilinogen LESS THAN 2.0 MG/DL Urine Leukocyte Esterase NEG Microscopic Urinalysis Comment CULT NOT INDICATED Blood Urea Nitrogen 5 MG/DL Creatinine 0.59 MG/DL Random Glucose 95 MG/DL Total Protein 9.0 GM/DL Albumin 4.4 GM/DL Calcium Level 9.2 MG/DL Alkaline Phosphatase 202 U/L Aspartate Amino Transf (AST/SGOT) 233 U/L Alanine Aminotransferase (ALT/SGPT) 66 U/L Total Bilirubin 0.6 MG/DL Sodium Level 138 MEQ/L Potassium Level 3.9 MEQ/L Chloride Level 100 MEQ/L Carbon Dioxide Level 27.0 MEQ/L Anion Gap 11 MEQ/L Estimat Glomerular Filtration Rate 109 ML/MIN Lipase 271 U/L [facility] Medical Record Reviewed: Yes Supervised Visit with DARCI: No Interpretation(s) Last Impressions Abdomen/Pelvis CT 05/27/17 [id number] Signed Impressions: Service Date/Time: Saturday, May 27, 2017 18:35 - CONCLUSION: 1. Mildly nonspecific, nonobstructive bowel gas pattern which may represent a mild ileus and/or gastroenteritis. An early or partial small bowel obstruction is much less likely. There is no transition point or inflammatory change. 2. Prominent liver with moderate hepatic steatosis. 3. Unremarkable gallbladder. Uzair Pope MD Narrative Course During the course of the patients emergency department visit, the patients history, examination, and differential diagnosis were reviewed with the patient. The patient was placed on a patient monitor with oximetry and frequent blood pressure monitoring. The patient had IV access obtained and blood work sent for analysis. The patient's case was checked out to me by Dr. Denny. Please see his complete history and physical. The patient's case was checked out to me at the conclusion of his shift. He requested that I admit the patient to the hospitalist service related to abdominal pain and concern for partial small bowel obstruction versus gastroenteritis, versus ileus on her CT scan of the abdomen and pelvis. The patient was initially provided normal saline 1 L IV fluid bolus, Zofran 4 mg IV for nausea, a GI cocktail was also administered. The patients laboratory studies were reviewed and remarkable for a white count of 5.1, hemoglobin 14.7, platelets 101 with 9.2 monocytes, CMP is remarkable for BUN of 5, AST 233, ALT 66, alkaline phosphatase 202, lipase 271, PT 10, PTT 26.2. Urinalysis is within normal limits. Radiology studies were reviewed and remarkable for a CT scan that shows a mildly nonspecific nonobstructive bowel gas pattern which may represent a mild ileus and/or gastroenteritis. An early or partial small bowel obstruction is much less likely. There is no transition point or inflammatory change. Prominent liver with moderate hepatic steatosis, unremarkable gallbladder. The patient's case was discussed with Dr. Dwyer. It was agreed that a by mouth oral challenge would be administered to assess for the patient's ability to tolerate by mouth hydration. The patient was given oral rehydration as a challenge, however the patient began to vomit shortly after. The patient will be admitted to the hospital for continued IV hydration. The patients results were discussed with the patient, including the plan of care. I explained that further testing and/ or monitoring is indicated based on the patients history, examination, and/ or laboratory findings. Therefore, I recommended admission for additional evaluation. The patient expressed understanding and was agreeable with this plan. The patient was admitted to the hospital in [-] condition and sent to a bed under the care of [-]. Physician Communication Physician Communication The patient's case including history, pertinent physical examination findings, and laboratory studies were discussed with Dr. Dwyer. It was agreed that the patient would be admitted to the [facility] hospitalist service. Diagnosis Primary Impression: Intractable abdominal pain Additional Impression: Intractable vomiting Qualified Codes: R11.2 - Nausea with vomiting, unspecified Admitting Information Admitting Physician Requests: Jasmyne Lopez MD May 27, 2017 19:21
[2017-05-27 19:44] VITALS: BP 139/84; PULSE 78; RESP 18; O2SAT 98
--- NOTE | 2017-05-27 20:27 | HHI.HP ---
[facility] Sundar South MD Admission Diagnosis Intractable vomiting, abdominal pain Diagnoses: (1) Intractable nausea and vomiting Diagnosis: Principal (2) Gastroenteritis Diagnosis: Principal (3) Alcohol abuse Diagnosis: Principal (4) Tobacco abuse Diagnosis: Principal Travel History International Travel<30 Days: No Contact w/Intl Traveler <30 Da: No Traveled to Known Affected Are: No History of Present Illness This is a 38-year-old female with a PMH of Anxiety, Lupus, Cirrhosis, Alcohol Abuse, h/o IVDU and Tobacco Abuse presented to the ER with complaints of abdominal pain x3 days. Pain is constant, sharp, non-radiating, severe w/ pain score 10/10. Reports associated nausea and vomiting. No diarrhea, no fever, no chills. On arrival, BP 173/105, HR 93, O2 sat 96% on RA, Afebrile. Platelets 101, previously 195 on 03/02/17. Chemistry unremarkable. LFTs elevated in comparison to previous labs from 03/02/17. Lipase normal. INR 1.0. UA negative. CT Abd/Pelvis w/ nonobstructive bowel gas pattern may represent mild ileus and or gastroenteritis, prominent liver with moderate hepatic steatosis, unremarkable gallbladder. Pt failed PO challenge in ER secondary to persistent nausea/vomiting. Review of Systems Except as stated in HPI: all other systems reviewed are Neg ROS: 14 point review of systems otherwise negative. Past Family Social History Past Medical History PMH: Anxiety, Lupus, Cirrhosis, Alcohol Abuse, h/o IVDU and Tobacco Abuse Past Surgical History PAST SURGICAL HISTORY: , Partial Hysterectomy, Surgery, Right Wrist Tendon Repair Allergies: Coded Allergies: No Known Allergies (Unverified Allergy, Unknown, 05/27/17) Family History PAST FAMILY HISTORY: Reviewed. No h/o DM or CAD Social History PAST SOCIAL HISTORY: Drinks daily. Smokes 2ppd. h/o IVDU w/ Dilaudid, last use 02/2017 Physical Exam Vital Signs Vital Signs Date Time Temp Pulse Resp B/P (MAP) Pulse Ox O2 Delivery O2 Flow Rate FiO2 05/27/17 19:44 78 18 139/84 (102) 98 Room Air 05/27/17 18:36 18 05/27/17 18:36 99 Room Air 05/27/17 16:10 98.0 93 20 173/105 (127) 96 Room Air Physical Exam PE: GENERAL: Middle-aged female in no acute distress. HEENT: PERRLA, EOMI. No scleral icterus or conjunctival pallor. No lid lag or facial droop. CARDIOVASCULAR: Regular rate and rhythm. No obvious murmurs to auscultation. No chest tenderness to palpation. RESPIRATORY: No obvious rhonchi or wheezing. Clear to auscultation. Breath sounds equal bilaterally. GASTROINTESTINAL: Abdomen soft, mild generalized tenderness palpation, nondistended. BS normal. MUSCULOSKELETAL: Extremities without clubbing, cyanosis, or edema. No obvious deformities. NEUROLOGICAL: Awake, alert and oriented x4. No focal neurologic deficits. Moving both upper and lower extremities spontaneously. Laboratory Laboratory Tests Test 05/27/17 16:45 White Blood Count 5.1 Red Blood Count 4.36 Hemoglobin 14.7 Hematocrit 43.7 Mean Corpuscular Volume 100.3 Mean Corpuscular Hemoglobin 33.7 Mean Corpuscular Hemoglobin Concent 33.6 Red Cell Distribution Width 14.7 Platelet Count 101 Mean Platelet Volume 8.4 Neutrophils (%) (Auto) 46.3 Lymphocytes (%) (Auto) 43.1 Monocytes (%) (Auto) 9.2 Eosinophils (%) (Auto) 0.8 Basophils (%) (Auto) 0.6 Neutrophils # (Auto) 2.4 Lymphocytes # (Auto) 2.2 Monocytes # (Auto) 0.5 Eosinophils # (Auto) 0.0 Basophils # (Auto) 0.0 CBC Comment DIFF FINAL Differential Comment Prothrombin Time 10.0 Prothromb Time International Ratio 1.0 Activated Partial Thromboplast Time 26.2 Urine Color LIGHT-YELLOW Urine Turbidity CLEAR Urine pH 7.0 Urine Specific [place] 1.002 Urine Protein NEG Urine Glucose (UA) NEG Urine Ketones NEG Urine Occult Blood NEG Urine Nitrite NEG Urine Bilirubin NEG Urine Urobilinogen LESS THAN 2.0 Urine Leukocyte Esterase NEG Microscopic Urinalysis Comment CULT NOT INDICATED Blood Urea Nitrogen 5 Creatinine 0.59 Random Glucose 95 Total Protein 9.0 Albumin 4.4 Calcium Level 9.2 Alkaline Phosphatase 202 Aspartate Amino Transf (AST/SGOT) 233 Alanine Aminotransferase (ALT/SGPT) 66 Total Bilirubin 0.6 Sodium Level 138 Potassium Level 3.9 Chloride Level 100 Carbon Dioxide Level 27.0 Anion Gap 11 Estimat Glomerular Filtration Rate 109 Lipase 271 Result Diagram: 05/27/17164405/27/171644 Caprini VTE Risk Assessment Caprini VTE Risk Assessment: No/Low Risk (score <= 1) Caprini Risk Assessment Model Point Value = 1 Point Value = 2 Point Value = 3 Point Value = 5 Age 41-60 Minor surgery BMI > 25 kg/m2 Swollen legs Varicose veins or History of unexplained or recurrent spontaneous Oral contraceptives or hormone replacement Sepsis (< 1 month) Serious lung disease, including pneumonia (< 1 month) Abnormal pulmonary function Acute myocardial infarction Congestive heart failure (< 1 month) History of inflammatory bowel disease Medical patient at bed rest Age 61-74 Arthroscopic surgery Major open surgery (> 45 min) Laparoscopic surgery (> 45 min) Malignancy Confined to bed (> 72 hours) Immobilizing plaster cast Central venous access Age >= 75 History of VTE Family history of VTE Factor V Leiden Prothrombin [id number] Lupus anticoagulant Anticardiolipin antibodies Elevated serum homocysteine Heparin-induced thrombocytopenia Other congenital or acquired thrombophilia Stroke (< 1 month) Elective arthroplasty Hip, pelvis, or leg fracture Acute spinal cord injury (< 1 month) Prophylaxis Regimen Total Risk Factor Score Risk Level Prophylaxis Regimen 0-1 Low Early ambulation 2 Moderate Order ONE of the following: *Sequential Compression Device (SCD) *Heparin 5000 units SQ BID 3-4 Higher Order ONE of the following medications: *Heparin 5000 units SQ TID *Enoxaparin/Lovenox 40 mg SQ daily (WT < 150 kg, CrCl > 30 mL/min) *Enoxaparin/Lovenox 30 mg SQ daily (WT < 150 kg, CrCl > 10-29 mL/min) *Enoxaparin/Lovenox 30 mg SQ BID (WT < 150 kg, CrCl > 30 mL/min) AND/OR *Sequential Compression Device (SCD) 5 or more Highest Order ONE of the following medications: *Heparin 5000 units SQ TID (Preferred with Epidurals) *Enoxaparin/Lovenox 40 mg SQ daily (WT < 150 kg, CrCl > 30 mL/min) *Enoxaparin/Lovenox 30 mg SQ daily (WT < 150 kg, CrCl > 10-29 mL/min) *Enoxaparin/Lovenox 30 mg SQ BID (WT < 150 kg, CrCl > 30 mL/min) AND *Sequential Compression Device (SCD) Assessment and Plan Problem List: (1) Intractable nausea and vomiting ICD Code: R11.2 - Nausea with vomiting, unspecified (2) Gastroenteritis ICD Code: K52.9 - Noninfective gastroenteritis and colitis, unspecified (3) Alcohol abuse ICD Code: F10.10 - Alcohol abuse Status: Chronic (4) Tobacco abuse ICD Code: Z72.0 - Tobacco abuse Status: Chronic Assessment and Plan A/P: 1. Intractable NV: acute onset of abdominal pain, nausea/vomiting x3 days, failed PO challenge in ER. IVF for hydration, continue Zofran prn, add Tigan as needed. Pepcid IV. Diet as tolerated. 2. Gastroenteritis: CT Abd/Pelvis w/ nonspecific bowel gas pattern, gastroenteritis or ileus, images reviewed by me. Afebrile, no leukocytosis, likely viral etiology, hold antibiotics for now, supportive treatment, IVF for hydration. 3. Alcohol Abuse: Drinks daily. High risk for withdrawal, Seizure Precautions , CIWA, MVT/Thiamine/Folate replacement. 4. Tobacco Abuse: Pt counselled. NicoDerm prn if needed. 5. DVT Prophylaxis: SCD/Teds. 6. Social work for d/c planning as needed. 7. Previous records/labs reviewed by me, case discussed at length w/ ER physician. Joy Dwyer MD May 27, 2017 20:27
[2017-05-27] MEDS ORDERED: ONDANSETRON HCL 4 MG/2 ML VIAL IVP PRN (20:30)
[2017-05-27] MEDS ORDERED: SENNOSIDES 8.6 MG TAB PO PRN (20:30)
[2017-05-27] MEDS ORDERED: LACTULOSE SYRUP 20 GM/30 ML CUP PO PRN (20:30)
[2017-05-27] MEDS ORDERED: MAGNESIUM HYDROXIDE SUSP 30 ML CUP PO PRN (20:30)
[2017-05-27] MEDS ORDERED: BISACODYL 10 MG SUPP RECTAL PRN (20:30)
[2017-05-27] MEDS ORDERED: ACETAMINOPHEN 325 MG TAB PO PRN (20:30)
[2017-05-27] MEDS ORDERED: TRIMETHOBENZAMIDE INJ 200 MG/2 ML VIAL IM PRN (20:30)
[2017-05-27] MEDS: FAMOTIDINE 20 MG/2 ML VIAL IV PUSH SCH (20:36)
[2017-05-27] MEDS: SODIUM CHLORIDE 0.9% FLUSH 10 ML FLUSH IV FLUSH SCH (21:44)
[2017-05-27] MEDS: SODIUM CHLOR 0.9% 1000 ML INJ 1,000 ML IV SCH (21:44)
[2017-05-27] MEDS: DOCUSATE SODIUM 50 MG/SENNA 8.6 MG TAB PO SCH (21:46)
[2017-05-27 21:48] VITALS: BP 130/83; PULSE 74; RESP 15; TEMP 96.9; O2SAT 95
[2017-05-27] MEDS ORDERED: FLUMAZENIL 0.5 MG/5 ML VIAL IV PUSH PRN (23:30)
[2017-05-27] MEDS ORDERED: HALOPERIDOL LACTATE 5 MG/ML AMP IM PRN (23:30)
[2017-05-27] MEDS ORDERED: LORazepam 1 MG TAB PO PRN (23:30)
[2017-05-27] MEDS ORDERED: LORazepam 2 MG/ML VIAL IV PUSH PRN ×4 (23:30)
[2017-05-27] MEDS ORDERED: LORazepam 2 MG TAB PO PRN (23:30)
[2017-05-27 23:32] VITALS: BP 133/81; PULSE 72; RESP 16; TEMP 98.3; O2SAT 96
[2017-05-28 04:33] VITALS: BP 151/80; PULSE 68; RESP 18; TEMP 98.2; O2SAT 95
[2017-05-28] MEDS: SODIUM CHLOR 0.9% 1000 ML INJ 1,000 ML IV SCH (06:59)
[2017-05-28 07:57] LABS: AUTOMATED NEUTROPHIL # 1.7 TH/MM3 (1.8-7.7); BASOPHIL % 0.7 % (0.0-2.0); EOSINOPHIL # 0.1 TH/MM3 (0-0.4); EOSINOPHIL % 1.6 % (0.0-4.0); HEMATOCRIT 39.9 % (35.0-46.0); HEMOGLOBIN 13.4 GM/DL (11.6-15.3); LYMPH % 36.8 % (9.0-44.0); LYMPHOCYTE # 1.3 TH/MM3 (1.0-4.8); MEAN CELL VOLUME 99.5 FL (80.0-100.0); MEAN CORPUSCULAR HEMOGLOBIN 33.5 PG (27.0-34.0); MEAN CORPUSCULAR HGB CONC 33.7 % (32.0-36.0); MEAN PLATELET VOLUME 8.8 FL (7.0-11.0); MONO % 11.9 % (0.0-8.0); MONOCYTE # 0.4 TH/MM3 (0-0.9); PLATELET COUNT 76 TH/MM3 (150-450); RED CELL DISTRIBUTION WIDTH 14.3 % (11.6-17.2); WHITE BLOOD COUNT 3.6 TH/MM3 (4.0-11.0)
[2017-05-28 08:17] LABS: ALBUMIN 3.6 GM/DL (3.4-5.0); ALKALINE PHOSPHATASE 165 U/L (45-117); ALT (GPT) 53 U/L (10-53); AST (GOT) 156 U/L (15-37); BICARBONATE 26.4 MEQ/L (21.0-32.0); BLOOD UREA NITROGEN 6 MG/DL (7-18); CALCIUM 8.5 MG/DL (8.5-10.1); CHLORIDE 104 MEQ/L (98-107); CREATININE 0.41 MG/DL (0.50-1.00); GLOMERULAR FILTRATION RATE 166 ML/MIN (>89); GLUCOSE,RANDOM 93 MG/DL (74-106); SODIUM (NA) 137 MEQ/L (136-145); TOTAL BILIRUBIN ADULT 0.9 MG/DL (0.2-1.0); TOTAL PROTEIN 7.6 GM/DL (6.4-8.2)
[2017-05-28 08:33] VITALS: BP 140/80; PULSE 62; RESP 20; TEMP 97.9; O2SAT 97
[2017-05-28] MEDS ORDERED: FOLIC ACID 1 MG TAB PO SCH (09:00)
[2017-05-28] MEDS ORDERED: THIAMINE HCL 100 MG TAB PO SCH (09:00)
[2017-05-28] MEDS ORDERED: MULTIVITAMINS/MINERALS THERAPEUTIC TAB PO SCH (09:00)
[2017-05-28] MEDS: FAMOTIDINE 20 MG/2 ML VIAL IV PUSH SCH (09:11)
[2017-05-28] MEDS: SODIUM CHLORIDE 0.9% FLUSH 10 ML FLUSH IV FLUSH SCH (09:11)
[2017-05-28] MEDS: DOCUSATE SODIUM 50 MG/SENNA 8.6 MG TAB PO SCH (09:12)
[2017-05-28] MEDS ORDERED: RESP: ALBUTEROL 2.5 MG/IPRATROPIUM 0.5 MG NEB (PRN) NEB (10:15)
[2017-05-28] MEDS ORDERED: REMOVE OLD PATCH T-DERMAL SCH (10:15)
[2017-05-28] MEDS ORDERED: RESP: ALBUTEROL 2.5 MG/IPRATROPIUM 0.5 MG NEB (SCH) NEB ONE (10:15)
[2017-05-28] MEDS ORDERED: NICOTINE 21 MG/24 HR PATCH T-DERMAL SCH (10:15)
--- NOTE | 2017-05-28 10:24 | HHI.PR ---
Subjective Remarks Follow up for abdominal pain, nausea/vomiting. The patient reports feeling slightly better today. She reports one small episode of bilious emesis this morning. Denies any current nausea. She reports abdominal pain improved but does still feel "sore" throughout the upper abdomen. Denies fevers but does reports chills, sweats, and shakes which she attributes to alcohol withdrawal. She admits to drinking a fifth of vodka daily. Her last BM was yesterday, described as formed nonbloody stool. She tolerated clear liquid diet for breakfast and would like to advance to regular food. She has no other medical complaints at this time. Objective Vitals Vital Signs Date Time Temp Pulse Resp B/P (MAP) Pulse Ox O2 Delivery O2 Flow Rate FiO2 05/28/17 08:33 97.9 62 20 140/80 (100) 97 05/28/17 04:33 98.2 68 18 151/80 (103) 95 05/27/17 23:32 98.3 72 16 133/81 (98) 96 05/27/17 21:48 96.9 74 15 130/83 (99) 95 05/27/17 20:56 05/27/17 19:44 78 18 139/84 (102) 98 Room Air 05/27/17 18:36 18 05/27/17 18:36 99 Room Air 05/27/17 16:10 98.0 93 20 173/105 (127) 96 Room Air I/O 05/27/17 05/27/17 05/27/17 05/28/17 05/28/17 05/28/17 07:00 15:00 23:00 07:00 15:00 23:00 Intake Total 1000 ml 750 ml Balance 1000 ml 750 ml Intake Oral 750 ml IV Total 1000 ml # Voids 3 Result Diagram: 05/28/17 0740 05/28/17 0740 Imaging Last Impressions Abdomen/Pelvis CT 05/27/17 1451 Signed Impressions: Service Date/Time: Saturday, May 27, 2017 18:35 - CONCLUSION: 1. Mildly nonspecific, nonobstructive bowel gas pattern which may represent a mild ileus and/or gastroenteritis. An early or partial small bowel obstruction is much less likely. There is no transition point or inflammatory change. 2. Prominent liver with moderate hepatic steatosis. 3. Unremarkable gallbladder. Uzair Pope MD Objective Remarks GENERAL: Well-nourished, well-developed pleasant middle aged female patient in [facility]. SKIN: Warm and dry. No rash. Ecchymosis at right flank and right distal knee. HEENT: Normocephalic. Atraumatic. Pupils equal and round. Mucous membranes pink and moist. CARDIOVASCULAR: Regular rate and rhythm. S1, S2 noted. No murmur appreciated. RESPIRATORY: No accessory muscle use. Diffuse expiratory wheezing. Breath sounds equal bilaterally. GASTROINTESTINAL: Abdomen soft, non-tender, nondistended. Normoactive bowel sounds x4. MUSCULOSKELETAL: No obvious deformities. Extremities without clubbing, cyanosis , or edema. NEUROLOGICAL: Awake and alert. No obvious cranial nerve deficits. Motor grossly within normal limits. Normal speech. PSYCHIATRIC: Appropriate mood and affect; insight and judgment normal. Medications and IVs Current Medications Medications (Trade) Dose Ordered Sig/Joelle Route Start Time Stop Time Status Last Admin (Pepcid Inj) 20 mg Q12H IV PUSH 05/27/17 20:30 05/28/17 09:11 Sodium Chloride 1,000 ml @ 100 mls/hr Q10H IV 05/27/17 21:00 05/28/17 06:59 (NS Flush) 2 ml UNSCH PRN IV FLUSH 05/27/17 20:30 (NS Flush) 2 ml BID IV FLUSH 05/27/17 21:00 05/28/17 09:11 (Zofran Inj) 4 mg Q6H PRN IVP 05/27/17 20:30 (Tylenol) 650 mg Q6H PRN PO 05/27/17 20:30 (Roxicodone) 10 mg Q4H PRN PO 05/27/17 20:30 05/28/17 06:58 (Roxicodone) 5 mg Q4H PRN PO 05/27/17 20:30 (Becca-Colace) 1 tab BID PO 05/27/17 21:00 05/27/17 21:46 (Milk Of Magnesia Liq) 30 ml Q12H PRN PO 05/27/17 20:30 (Senokot) 17.2 mg Q12H PRN PO 05/27/17 20:30 (Dulcolax Supp) 10 mg DAILY PRN RECTAL 05/27/17 20:30 (Lactulose Liq) 30 ml DAILY PRN PO 05/27/17 20:30 (Tigan Inj) 200 mg Q6H PRN IM 05/27/17 20:30 (Folate) 1 mg DAILY PO 05/28/17 09:00 06/02/17 08:59 05/28/17 09:11 (Vitamin B1) 100 mg DAILY PO 05/28/17 09:00 05/28/17 09:11 (Theragran M Tab) 1 tab DAILY PO 05/28/17 09:00 06/02/17 08:59 05/28/17 09:11 (Romazicon Inj) 0.2 mg Q1M PRN IV PUSH 05/27/17 23:30 (Ativan) 1 mg Q4H PRN PO 05/27/17 23:30 (Ativan Inj) 1 mg Q4H PRN IV PUSH 05/27/17 23:30 (Ativan) 2 mg Q2H PRN PO 05/27/17 23:30 (Ativan Inj) 2 mg Q2H PRN IV PUSH 05/27/17 23:30 (Ativan Inj) 2 mg Q1H PRN IV PUSH 05/27/17 23:30 (Ativan Inj) 2 mg Q15M PRN IV PUSH 05/27/17 23:30 (Haldol Inj) 2 mg Q15M PRN IM 05/27/17 23:30 (Habitrol 21 Mg Patch.24 Hr) 1 patch DAILY T-DERMAL 05/28/17 10:15 Miscellaneous Information 1 DAILY T-DERMAL 05/28/17 10:15 (Duoneb Neb) 1 ampule ONCE ONCE NEB 05/28/17 10:15 05/28/17 10:16 A/P Problem List: (1) Intractable nausea and vomiting ICD Code: R11.2 - Nausea with vomiting, unspecified (2) Gastroenteritis ICD Code: K52.9 - Noninfective gastroenteritis and colitis, unspecified (3) Alcohol abuse ICD Code: F10.10 - Alcohol abuse Status: Chronic (4) Tobacco abuse ICD Code: Z72.0 - Tobacco abuse Status: Chronic Assessment and Plan 38-year-old female with a PMH of Anxiety, Lupus, Cirrhosis, Alcohol Abuse, h/o IVDU and Tobacco Abuse presented to the ER with complaints of abdominal pain and nausea/vomiting x3 days. Gastroenteritis with Intractable Abdominal Pain/Nausea/Vomiting: symptoms x3 days, failed PO challenge in ER. Afebrile, no leukocytosis, likely viral etiology, hold antibiotics for now. -CT Abd/Pelvis w/ nonspecific bowel gas pattern, gastroenteritis or ileus, images reviewed by me. -Continue supportive treatment with IVF for hydration, continue Zofran prn, add Tigan as needed. -Continue Pepcid IV. -Clear liquid diet, advance to soft diet for lunch Alcohol Abuse with Alcohol Withdrawal: Drinks 1/5 of Vodka Daily. High risk for withdrawal. -Continue Seizure Precautions, CIWA protocol, MVT/Thiamine/Folate replacement. Tobacco Abuse: Pt counselled on cessation. -Given Nicotine patch COPD with Mild Exacerbation: patient with diffuse expiratory wheezing on exam -Give Duoneb x1 now and q4h prn DVT Prophylaxis: SCD/Teds. Discharge Planning 1024hrs: Possible discharge later today or tomorrow if tolerating oral intake. 1545hrs: Patient re-evaluated. She tolerated her regular soft meal for lunch. She had a formed nonbloody bowel movement. She denies any further nausea or vomiting. No fevers/chills. She is requesting to go home and requests note to return to work in 2 days. Will discharge home. Discharge patient to home Condition on discharge: Improved Regular Diet as tolerated Ad Crissy activity Rx written: no new meds Follow-up with primary care physician within 1 week Brittny Romero PA-C May 28, 2017 10:24 am
[2017-05-28 12:08] VITALS: BP 140/80; PULSE 64; RESP 20; TEMP 97.9; O2SAT 96
--- NOTE | 2017-05-28 15:12 | HHI.DCPOC ---
Discharge Care Plan Diagnosis: (1) Gastroenteritis (2) Intractable nausea and vomiting Goals to Promote Your Health * To prevent worsening of your condition and complications * To maintain your health at the optimal level Directions to Meet Your Goals Take your medications as prescribed Follow your dietary instruction Follow activity as directed Keep your appointments as scheduled Take your immunizations and boosters as scheduled If your symptoms worsen call your PCP, if no PCP go to Urgent Care Center or Emergency Room Smoking is Dangerous to Your Health. Avoid second hand smoke Call the 24-hour hour crisis hotline for domestic abuse at Brittny Romero PA-C May 28, 2017 3:12 pm
== END 2017-05-28 17:16 | disposition home or self-care (01) ==
LOC: NEPC 16:08 → NEDA 20:18 → NEPGCP 20:51
PROVIDERS: ADMIT Hospitalist; ATTEND Hospitalist
DX: K52.9 Noninfective gastroenteritis and colitis, unspecified (principal); F10.239 Alcohol dependence with withdrawal, unspecified; F17.210 Nicotine dependence, cigarettes, uncomplicated; F19.10 Other psychoactive substance abuse, uncomplicated; F41.9 Anxiety disorder, unspecified; B19.20 Unspecified viral hepatitis C without hepatic coma; Z79.899 Other long term (current) drug therapy; R79.89 Other specified abnormal findings of blood chemistry; K76.0 Fatty (change of) liver, not elsewhere classified; J44.1 Chronic obstructive pulmonary disease with (acute) exacerbation
CPT/HCPCS: 74177; 80053; 81001; 82948; 83690; 85025; 85610; 85730; 94664; 96361; 96374; 96375; 96376; 99285; G0378; J0500; J2405; J7030; Q9967

== ENCOUNTER 2017-06-03 14:02 | Emergency (ER) | payer SELFPAY ==
[~2017-06-03] VITALS: Ht 149.9 cm; Wt 50.0 kg
[2017-06-03 14:03] VITALS: BP 162/92; PULSE 78; RESP 16; TEMP 98.6; O2SAT 97
--- NOTE | 2017-06-03 15:13 | PD ---
HPI Chief Complaint: Medical Clearance Time Seen by Provider: 15:11 Travel History International Travel<30 days: No Contact w/Intl Traveler<30days: No Traveled to known affect area: No History of Present Illness HPI 46-year-old female came to the emergency room with bodywide pain and crying that she noticed some bruising appearing on her back. Patient is a chronic alcoholic and like her usual drank today as well. She says she has been vomiting. Patient told me that she was in the emergency room 2 days ago but has actually been here one week ago with the exact same symptoms. She was admitted overnight and discharged home eventually. Patient says she hasn't been able to get out of her couch since she has been home. She cannot stop vomiting. She would like to drink alcohol but cannot hold it down. Vital signs were relatively stable. [facility] Past Medical History Narrative Medical List of her past medical, surgical, social and family history is reviewed from the nursing note. Hx Anticoagulant Therapy: No Arthritis: Yes (HANDS) Asthma: Yes Autoimmune Disease: Yes (LUPUS) Blood Disorders: No Anxiety: Yes Depression: No Heart Rhythm Problems: No Cardiovascular Problems: Yes (ENDOCARDITIS) High Cholesterol: No Chemotherapy: No Chest Pain: Yes Congestive Heart Failure: No COPD: Yes (BRONCHITIS) Cerebrovascular Accident: No Diabetes: No Diminished Hearing: No Endocrine: No Gastrointestinal Disorders: No Genitourinary: No Hepatitis: Yes (C) Immune Disorder: Yes (LUPUS) Implanted Vascular Access Dvce: Yes Kidney Stones: No Musculoskeletal: Yes (SPINE PROBLEMS (NECK AND BACK)) Neurologic: Yes (SEIZURE) Psychiatric: Yes Reproductive: No Respiratory: No Immunizations Current: No Radiation Therapy: No Renal Failure: No Seizures: No Sleep Apnea: No Thyroid Disease: No ?: Not Menopausal: Yes : 3 Para: 1 Miscarriage: 0 : 2 Ovarian Cysts: Yes Past Surgical History Abdominal Surgery: No AICD: No Arteriovenous Shunt: No Body Medical Devices: CADAVER BONE IN NECK Cardiac Surgery: No Section: Yes (X1) Ear Surgery: No Endocrine Surgery: No Eye Surgery: No Genitourinary Surgery: No Gynecologic Surgery: Yes (PARTIAL HYSTERECTOMY) Hysterectomy: Yes (partial) Insulin Pump: No Joint Replacement: No Neurologic Surgery: Yes ("NECK SURGERY") Oral Surgery: No Pacemaker: No Thoracic Surgery: No Other Surgery: Yes (SPINAL/NECK, RT WRIST TENDON, PARTIAL HYSTERECTOMY) Social History Alcohol Use: Yes (DAILY) Tobacco Use: Yes (2 PPD) Substance Use: Yes (IVDA DILAUDID (LAST 6MTHS AGO)) Allergies-Medications (Allergen,Severity, Reaction): Coded Allergies: No Known Allergies (Unverified Allergy, Unknown, 05/27/17) Comments No known drug allergies. Reported Meds & Prescriptions Reported Meds & Active Scripts Active Phenergan Supp (Promethazine HCl) 25 Mg Supp 25 Mg RECTAL Q6H PRN Zofran Odt (Ondansetron Odt) 4 Mg Tab 4 Mg SL Q8HR PRN Omeprazole 40 Mg Cap 40 Mg PO DAILY Reported Hydrocodone-Acetaminophen 7.5-325 mg Tab 1 Tab PO Q4H PRN Narrative Medication List of her home medications reviewed from the nursing note. Review of Systems Except as stated in HPI: all other systems reviewed are Neg Gastrointestinal: Positive: Nausea, Vomiting Physical Exam Narrative GENERAL: Awake, alert, anxious, moderate distress SKIN: Focused skin assessment warm/dry. Large bruising/ecchymosis on the right flank and anterior abdominal wall HEAD: Atraumatic. Normocephalic. EYES: Pupils equal and round. No scleral icterus. No injection or drainage. ENT: No nasal bleeding or discharge. Mucous membranes pink and moist. NECK: Trachea midline. No JVD. CARDIOVASCULAR: Regular rate and rhythm. No murmur appreciated. RESPIRATORY: No accessory muscle use. Clear to auscultation. Breath sounds equal bilaterally. GASTROINTESTINAL: Abdomen soft, non-tender, nondistended. Hepatic and splenic margins not palpable. MUSCULOSKELETAL: No obvious deformities. No clubbing. No cyanosis. No edema. NEUROLOGICAL: Awake and alert. No obvious cranial nerve deficits. Motor grossly within normal limits. Normal speech. PSYCHIATRIC: Appropriate mood and affect; insight and judgment normal. Data Data Last Documented VS Vital Signs Date Time Temp Pulse Resp B/P (MAP) Pulse Ox O2 Delivery O2 Flow Rate FiO2 06/03/17 20:09 06/03/17 15:45 99 Room Air 06/03/17 14:03 98.6 78 16 Orders Orders Complete Blood Count With Diff (06/03/17 15:17) Comprehensive Metabolic Panel (06/03/17 15:17) Lipase (06/03/17 15:17) Prothrombin Time / Inr (Pt) (06/03/17 15:17) Urinalysis - C+S If Indicated (06/03/17 15:17) Ct Abd/Pel W Iv Contrast(Rout) (06/03/17 15:17) Iv Access Insert/Monitor (06/03/17 15:17) Ecg Monitoring (06/03/17 15:17) Oximetry (06/03/17 15:17) Sodium Chlor 0.9% 1000 Ml Inj (Ns 1000 M (06/03/17 15:17) Sodium Chloride 0.9% Flush (Ns Flush) (06/03/17 15:30) Drug Screen, Random Urine (06/03/17 15:21) Sodium Chlor 0.9% 1000 Ml Inj (Ns 1000 M (06/03/17 15:30) Oral Contrast - Adult (06/03/17 15:27) Alcohol (Ethanol) (06/03/17 15:17) Creatine Kinase (Cpk) (06/03/17 15:17) Diatrizoate Liq ( Gastroview Liq) (06/03/17 15:50) Ondansetron Inj (Zofran Inj) (06/03/17 17:06) Iohexol 350 Inj (Omnipaque 350 Inj) (06/03/17 18:26) Lorazepam Inj (Ativan Inj) (06/03/17 19:15) Promethazine Inj (Phenergan Inj) (06/03/17 19:15) Ed Discharge Order (06/03/17 19:17) Labs Laboratory Tests Test 06/03/17 15:15 06/03/17 15:20 White Blood Count 5.0 TH/MM3 Red Blood Count 4.15 MIL/MM3 Hemoglobin 14.1 GM/DL Hematocrit 40.9 % Mean Corpuscular Volume 98.4 FL Mean Corpuscular Hemoglobin 33.9 PG Mean Corpuscular Hemoglobin Concent 34.4 % Red Cell Distribution Width 15.0 % Platelet Count 106 TH/MM3 Mean Platelet Volume 7.9 FL Neutrophils (%) (Auto) 43.7 % Lymphocytes (%) (Auto) 43.7 % Monocytes (%) (Auto) 10.8 % Eosinophils (%) (Auto) 1.3 % Basophils (%) (Auto) 0.5 % Neutrophils # (Auto) 2.2 TH/MM3 Lymphocytes # (Auto) 2.2 TH/MM3 Monocytes # (Auto) 0.5 TH/MM3 Eosinophils # (Auto) 0.1 TH/MM3 Basophils # (Auto) 0.0 TH/MM3 CBC Comment DIFF FINAL Differential Comment Prothrombin Time 10.0 SEC Prothromb Time International Ratio 1.0 RATIO Blood Urea Nitrogen 6 MG/DL Creatinine 0.41 MG/DL Random Glucose 82 MG/DL Total Protein 8.7 GM/DL Albumin 4.2 GM/DL Calcium Level 9.2 MG/DL Alkaline Phosphatase 217 U/L Aspartate Amino Transf (AST/SGOT) 218 U/L Alanine Aminotransferase (ALT/SGPT) 72 U/L Total Bilirubin 0.4 MG/DL Sodium Level 141 MEQ/L Potassium Level 3.8 MEQ/L Chloride Level 107 MEQ/L Carbon Dioxide Level 25.1 MEQ/L Anion Gap 9 MEQ/L Estimat Glomerular Filtration Rate 166 ML/MIN Total Creatine Kinase 87 U/L Lipase 418 U/L Ethyl Alcohol Level 271 MG/DL Urine Color LIGHT-YELLOW Urine Turbidity CLEAR Urine pH 6.5 Urine Specific [place] 1.005 Urine Protein NEG mg/dL Urine Glucose (UA) NEG mg/dL Urine Ketones NEG mg/dL Urine Occult Blood NEG Urine Nitrite NEG Urine Bilirubin NEG Urine Urobilinogen LESS THAN 2.0 MG/DL Urine Leukocyte Esterase NEG Urine Squamous Epithelial Cells 1 /hpf Microscopic Urinalysis Comment CULT NOT INDICATED Urine Opiates Screen NEG Urine Barbiturates Screen NEG Urine Amphetamines Screen NEG Urine Benzodiazepines Screen NEG Urine Cocaine Screen NEG Urine Cannabinoids Screen NEG MDM Medical Decision Making Medical Screen Exam Complete: Yes Emergency Medical Condition: Yes Medical Record Reviewed: Yes Differential Diagnosis Rhabdomyolysis, chronic alcoholic, alcoholic cirrhosis, alcoholic gastritis Narrative Course 4:56 PM patient's CBC and chemistry are back. Liver function is elevated but does not look much different from the liver function 1 week ago. Lipase is mildly elevated. There is a CT scan of the abdomen and pelvis pending. Patient had a CAT scan done 1 week ago that was suggestive of ileus. In my opinion patient could be discharged home if the CAT scan is negative since there is very little to be done from ER or hospital perspective since patient has no intentions of giving up alcohol. I have brought the topic up of going to [facility] to go through a alcohol rehabilitation and patient did not show much interest about it. Case will be signed over to the oncoming ER physician to follow-up on the CT. Procedures EKG Prior to Arrival: No Scripts Promethazine Supp (Phenergan Supp) 25 Mg Supp 25 MG RECTAL Q6H Y for NAUSEA OR VOMITING, #10 SUPP 0 Refills Prov: Antony Denny MD 06/03/17 Ondansetron Odt (Zofran Odt) 4 Mg Tab 4 MG SL Q8HR Y for Nausea/Vomiting, #12 TAB 0 Refills Prov: Antony Denny MD 06/03/17 Marsha Chavira MD Jun 03, 2017 15:13
[2017-06-03] MEDS ORDERED: SODIUM CHLOR 0.9% 1000 ML INJ 1,000 ML IV SCH (15:17)
[2017-06-03] MEDS ORDERED: SODIUM CHLOR 0.9% 1000 ML INJ 1,000 ML IV ONE (15:30)
[2017-06-03] MEDS ORDERED: SODIUM CHLORIDE 0.9% FLUSH 10 ML FLUSH IV FLUSH PRN (15:30)
[2017-06-03 15:45] VITALS: O2SAT 99
[2017-06-03] MEDS ORDERED: DIATRIZOATE MEGLUM/DIATRIZOATE SOD 9 ML CUP ONE (15:50)
[2017-06-03 15:54] LABS: AUTOMATED NEUTROPHIL # 2.2 TH/MM3 (1.8-7.7); BASOPHIL % 0.5 % (0.0-2.0); EOSINOPHIL # 0.1 TH/MM3 (0-0.4); EOSINOPHIL % 1.3 % (0.0-4.0); HEMATOCRIT 40.9 % (35.0-46.0); HEMOGLOBIN 14.1 GM/DL (11.6-15.3); LYMPH % 43.7 % (9.0-44.0); LYMPHOCYTE # 2.2 TH/MM3 (1.0-4.8); MEAN CELL VOLUME 98.4 FL (80.0-100.0); MEAN CORPUSCULAR HEMOGLOBIN 33.9 PG (27.0-34.0); MEAN CORPUSCULAR HGB CONC 34.4 % (32.0-36.0); MEAN PLATELET VOLUME 7.9 FL (7.0-11.0); MONO % 10.8 % (0.0-8.0); MONOCYTE # 0.5 TH/MM3 (0-0.9); NEUT % 43.7 % (16.0-70.0); PLATELET COUNT 106 TH/MM3 (150-450); RED BLOOD COUNT 4.15 MIL/MM3 (4.00-5.30)
[2017-06-03 16:03] LABS: BILIRUBIN, URINE NEG (NEG); BLOOD, URINE NEG (NEG); GLUCOSE,URINE NEG (NEG); KETONE, URINE NEG (NEG); NITRITE,URINE NEG (NEG); PH, URINE 6.5 (5.0-8.5); SQUAMOUS EPITHELIAL CELL URINE 1 /hpf (0-5); URINE COLOR LIGHT-YELLOW (YELLW/STRAW); URINE LEUKOCYTE ESTERASE NEG (NEG)
[2017-06-03 16:16] LABS: ALBUMIN 4.2 GM/DL (3.4-5.0); ALT (GPT) 72 U/L (10-53); AST (GOT) 218 U/L (15-37); BICARBONATE 25.1 MEQ/L (21.0-32.0); BLOOD UREA NITROGEN 6 MG/DL (7-18); CALCIUM 9.2 MG/DL (8.5-10.1); CHLORIDE 107 MEQ/L (98-107); CREATININE 0.41 MG/DL (0.50-1.00); GLOMERULAR FILTRATION RATE 166 ML/MIN (>89); GLUCOSE,RANDOM 82 MG/DL (74-106); LIPASE 418 U/L (73-393); SODIUM (NA) 141 MEQ/L (136-145)
[2017-06-03 16:18] LABS: ALKALINE PHOSPHATASE 217 U/L (45-117); TOTAL BILIRUBIN ADULT 0.4 MG/DL (0.2-1.0); TOTAL PROTEIN 8.7 GM/DL (6.4-8.2)
[2017-06-03] MEDS ORDERED: ONDANSETRON HCL 4 MG/2 ML VIAL ONE (17:06)
[2017-06-03] MEDS ORDERED: IOHEXOL 350 MG/ML 10 ML VIAL (for RAD DIAG) IVCONTRAST ONE (18:26)
--- NOTE | 2017-06-03 18:49 | RADRPT ---
EXAM DATE/TIME: 06/03/2017 18:19 [place] COMPARISON: No previous studies available for comparison. INDICATIONS : Abdominal pain ans vomiting. IV CONTRAST: 100 cc Omnipaque 350 (iohexol) IV ORAL CONTRAST: Partial prescribed oral contrast ingested. RADIATION DOSE: 4.54 CTDIvol (mGy) MEDICAL HISTORY : Chronic obstructive pulmonary disease. Endocarditis, Asthma SURGICAL HISTORY : Neck surgery, partial hysterectomy. ENCOUNTER: Initial ACUITY: 1 day PAIN SCALE: 9/10 LOCATION: Bilateral lower quadrant abdominal TECHNIQUE: Volumetric scanning of the abdomen and pelvis was performed. Using automated exposure control and ad justment of the mA and/or kV according to patient size, radiation dose was kept as low as reasonably achievable to obtain optimal diagnostic quality images. DICOM format image data is available electro nically for review and comparison. FINDINGS: The lung bases clear. Mild fatty liver. Spleen, adrenals, kidneys and pancreas unremarkable. No galls tones or biliary ductal dilatation. No bowel obstruction. No free air or free fluid. No adenopathy. CONCLUSION: 1. No acute finding abdomen and pelvic CT. Mild fatty liver. Javan Reynoso MD on June 03, 2017 at 18:40 Board Certified Radiologist. This report was verified electronically.
[2017-06-03] MEDS ORDERED: PROMETHAZINE INJ 25 MG/ML VIAL IM ONE (19:15)
[2017-06-03] MEDS ORDERED: LORazepam 2 MG/ML VIAL IV PUSH ONE (19:15)
[2017-06-03] MEDS ORDERED: ZOFR4TAB3 SL (19:20)
[2017-06-03] MEDS ORDERED: PROM1SUP7 RECTAL (19:20)
--- NOTE | 2017-06-03 19:20 | PD ---
Data Data Last Documented VS Vital Signs Date Time Temp Pulse Resp B/P (MAP) Pulse Ox O2 Delivery O2 Flow Rate FiO2 06/03/17 15:45 99 Room Air 06/03/17 14:03 98.6 78 16 Orders Orders Complete Blood Count With Diff (06/03/17 15:17) Comprehensive Metabolic Panel (06/03/17 15:17) Lipase (06/03/17 15:17) Prothrombin Time / Inr (Pt) (06/03/17 15:17) Urinalysis - C+S If Indicated (06/03/17 15:17) Ct Abd/Pel W Iv Contrast(Rout) (06/03/17 15:17) Iv Access Insert/Monitor (06/03/17 15:17) Ecg Monitoring (06/03/17 15:17) Oximetry (06/03/17 15:17) Sodium Chlor 0.9% 1000 Ml Inj (Ns 1000 M (06/03/17 15:17) Sodium Chloride 0.9% Flush (Ns Flush) (06/03/17 15:30) Drug Screen, Random Urine (06/03/17 15:21) Sodium Chlor 0.9% 1000 Ml Inj (Ns 1000 M (06/03/17 15:30) Oral Contrast - Adult (06/03/17 15:27) Alcohol (Ethanol) (06/03/17 15:17) Creatine Kinase (Cpk) (06/03/17 15:17) Diatrizoate Liq ( Gastroview Liq) (06/03/17 15:50) Ondansetron Inj (Zofran Inj) (06/03/17 17:06) Iohexol 350 Inj (Omnipaque 350 Inj) (06/03/17 18:26) Lorazepam Inj (Ativan Inj) (06/03/17 19:15) Promethazine Inj (Phenergan Inj) (06/03/17 19:15) Ed Discharge Order (06/03/17 19:17) Labs Laboratory Tests Test 06/03/17 15:15 06/03/17 15:20 White Blood Count 5.0 TH/MM3 Red Blood Count 4.15 MIL/MM3 Hemoglobin 14.1 GM/DL Hematocrit 40.9 % Mean Corpuscular Volume 98.4 FL Mean Corpuscular Hemoglobin 33.9 PG Mean Corpuscular Hemoglobin Concent 34.4 % Red Cell Distribution Width 15.0 % Platelet Count 106 TH/MM3 Mean Platelet Volume 7.9 FL Neutrophils (%) (Auto) 43.7 % Lymphocytes (%) (Auto) 43.7 % Monocytes (%) (Auto) 10.8 % Eosinophils (%) (Auto) 1.3 % Basophils (%) (Auto) 0.5 % Neutrophils # (Auto) 2.2 TH/MM3 Lymphocytes # (Auto) 2.2 TH/MM3 Monocytes # (Auto) 0.5 TH/MM3 Eosinophils # (Auto) 0.1 TH/MM3 Basophils # (Auto) 0.0 TH/MM3 CBC Comment DIFF FINAL Differential Comment Prothrombin Time 10.0 SEC Prothromb Time International Ratio 1.0 RATIO Blood Urea Nitrogen 6 MG/DL Creatinine 0.41 MG/DL Random Glucose 82 MG/DL Total Protein 8.7 GM/DL Albumin 4.2 GM/DL Calcium Level 9.2 MG/DL Alkaline Phosphatase 217 U/L Aspartate Amino Transf (AST/SGOT) 218 U/L Alanine Aminotransferase (ALT/SGPT) 72 U/L Total Bilirubin 0.4 MG/DL Sodium Level 141 MEQ/L Potassium Level 3.8 MEQ/L Chloride Level 107 MEQ/L Carbon Dioxide Level 25.1 MEQ/L Anion Gap 9 MEQ/L Estimat Glomerular Filtration Rate 166 ML/MIN Total Creatine Kinase 87 U/L Lipase 418 U/L Ethyl Alcohol Level 271 MG/DL Urine Color LIGHT-YELLOW Urine Turbidity CLEAR Urine pH 6.5 Urine Specific [place] 1.005 Urine Protein NEG mg/dL Urine Glucose (UA) NEG mg/dL Urine Ketones NEG mg/dL Urine Occult Blood NEG Urine Nitrite NEG Urine Bilirubin NEG Urine Urobilinogen LESS THAN 2.0 MG/DL Urine Leukocyte Esterase NEG Urine Squamous Epithelial Cells 1 /hpf Microscopic Urinalysis Comment CULT NOT INDICATED Urine Opiates Screen NEG Urine Barbiturates Screen NEG Urine Amphetamines Screen NEG Urine Benzodiazepines Screen NEG Urine Cocaine Screen NEG Urine Cannabinoids Screen NEG [facility] Medical Record Reviewed: Yes Supervised Visit with [facility]: No Narrative Course CBC & BMP Diagram 06/03/17 15:15 Total Protein 8.7 #H, Albumin 4.2, Calcium Level 9.2, Alkaline Phosphatase 217 H , Aspartate Amino Transf (AST/SGOT) 218 H, Alanine Aminotransferase (ALT/SGPT) 72 H, Total Bilirubin 0.4 INR 1.0 UA: no UTI Utox: artis-negative EtOH 271 pt ok for dc home with antiemetics discussion of alcohol for ongoing liver and pancreatitis disease d/w w patient Diagnosis Primary Impression: Alcohol abuse Additional Impressions: Back pain Qualified Codes: M54.5 - Low back pain LFT elevation Pancreatitis, alcoholic, acute Qualified Codes: K85.20 - Alcohol induced acute pancreatitis without necrosis or infection Referrals: [facility]Other Pt SpecificInfo: Prescription(s) given Scripts Promethazine Supp (Phenergan Supp) 25 Mg Supp 25 MG RECTAL Q6H Y for NAUSEA OR VOMITING, #10 SUPP 0 Refills Prov: Antony Denny MD 06/03/17 Ondansetron Odt (Zofran Odt) 4 Mg Tab 4 MG SL Q8HR Y for Nausea/Vomiting, #12 TAB 0 Refills Prov: Antony Denny MD 06/03/17 Disposition: 01 DISCHARGE HOME Condition: Stable Antony Denny MD Jun 03, 2017 19:20
== END 2017-06-03 20:18 | disposition home or self-care (01) ==
LOC: NEPD 14:02
DX: F10.229 Alcohol dependence with intoxication, unspecified (principal); M54.5 Low back pain; R79.89 Other specified abnormal findings of blood chemistry; K85.20 Alcohol induced acute pancreatitis without necrosis or infection; M32.9 Systemic lupus erythematosus, unspecified; M19.90 Unspecified osteoarthritis, unspecified site; Y90.8 Blood alcohol level of 240 mg/100 ml or more
CPT/HCPCS: 74177; 80053; 80307; 81001; 82550; 83690; 85025; 85610; 96361; 96372; 96374; 99284; J2060; J2405; J2550; J7030; Q9963; Q9967

== ENCOUNTER 2017-06-18 16:56 | Emergency (ER) | payer SELFPAY ==
[~2017-06-18 16:56] MED LIST changes: +PROM1SUP7 RECTAL; +ZOFR4TAB3 SL
[2017-06-18 17:15] VITALS: BP_SYST 108; BP_DIAS 80; BP_DIAS 90; PULSE 98; RESP 16; TEMP 98.6; O2SAT 100
[2017-06-18] MEDS ORDERED: ASPIRIN 81 MG CHEW TAB PO ONE (17:30)
[2017-06-18] MEDS: KETOROLAC TROMETHAMINE 30 MG/ML (IVP) VIAL IV PUSH ONE ×2 (17:30→17:55)
[2017-06-18] MEDS ORDERED: SODIUM CHLORIDE 0.9% FLUSH 10 ML FLUSH IVF PRN (17:30)
[2017-06-18] MEDS ORDERED: SODIUM CHLORID 0.9% 500 ML INJ 500 ML IV ONE (17:30)
[2017-06-18] MEDS ORDERED: HYDR-3583 PO (17:36)
[2017-06-18 17:38] VITALS: RESP 18; O2SAT 98
--- NOTE | 2017-06-18 17:38 | PD ---
HPI Chief Complaint: Chest Pain Time Seen by Provider: 17:10 Travel History International Travel<30 days: No Contact w/Intl Traveler<30days: No Traveled to known affect area: No History of Present Illness HPI The patient is a 46-year-old female who presents to the emergency department for left-sided chest pain. The patient states she has a history of IV drug abuse, injected Dilaudid in the left forearm 1 week ago. She then complained of swelling under the left axilla and now complains of anterior left- sided chest pain radiating to the back. The pain is worse with inspiration. She denies any fever, chills, or sweats. She does have a history of osteomyelitis with previous surgery by Dr. South for her osteomyelitis. She is followed by Dr. Soria, her chronic pain physician who writes her Lortab 10 mg tablets. The patient states she ran out of Lortab and was not due to get her refill for 2 days, therefore, brought Dilaudid and subsequently injected the Dilaudid. She denies any known history of septic emboli, however, does have a history of endocarditis. Symptoms are moderate, exacerbated after injecting IV Dilaudid, and there are no current alleviating factors. She does have a history of alcohol abuse, last used alcohol prior to arrival. PFSH Past Medical History Hx Anticoagulant Therapy: No Arthritis: Yes (HANDS) Asthma: Yes Autoimmune Disease: Yes (LUPUS) Blood Disorders: No Anxiety: Yes Depression: No Heart Rhythm Problems: No Cardiovascular Problems: Yes High Cholesterol: No Chemotherapy: No Chest Pain: Yes Congestive Heart Failure: No COPD: Yes (BRONCHITIS) Cerebrovascular Accident: No Diabetes: No Diminished Hearing: No Endocrine: No Gastrointestinal Disorders: No Genitourinary: No Hepatitis: Yes (C) Immune Disorder: Yes (LUPUS) Implanted Vascular Access Dvce: Yes Kidney Stones: No Musculoskeletal: Yes (SPINE PROBLEMS (NECK AND BACK)) Neurologic: Yes (SEIZURE) Psychiatric: Yes Reproductive: No Respiratory: No Immunizations Current: No Radiation Therapy: No Renal Failure: No Seizures: No Sleep Apnea: No Thyroid Disease: No Menopausal: Yes : 3 Para: 1 Miscarriage: 0 : 2 Ovarian Cysts: Yes Past Surgical History Abdominal Surgery: No AICD: No Arteriovenous Shunt: No Body Medical Devices: CADAVER BONE IN NECK Cardiac Surgery: No Section: Yes (X1) Ear Surgery: No Endocrine Surgery: No Eye Surgery: No Genitourinary Surgery: No Gynecologic Surgery: Yes (PARTIAL HYSTERECTOMY) Hysterectomy: Yes (partial) Insulin Pump: No Joint Replacement: No Neurologic Surgery: Yes ("NECK SURGERY") Oral Surgery: No Pacemaker: No Thoracic Surgery: No Other Surgery: Yes (SPINAL/NECK, RT WRIST TENDON, PARTIAL HYSTERECTOMY) Social History Alcohol Use: Yes (DAILY) Tobacco Use: Yes (2 PPD) Substance Use: Yes (IVDA DILAUDID (LAST 6MTHS AGO)) Allergies-Medications (Allergen,Severity, Reaction): Coded Allergies: No Known Allergies (Unverified Allergy, Unknown, 05/27/17) Reported Meds & Prescriptions Reported Meds & Active Scripts Active Reported Hydrocodone-Acetamin 10-325 mg (Hydrocodone/Acetaminophen) 10 Mg-325 Mg Tablet 1 Tab PO DAILY Review of Systems Except as stated in HPI: all other systems reviewed are Neg General / Constitutional: No: Fever, Chills Cardiovascular: Positive: Chest Pain or Discomfort Respiratory: Positive: Shortness of Breath, Pleuritic Pain Gastrointestinal: No: Nausea, Vomiting, Abdominal Pain Genitourinary: No: Dysuria Musculoskeletal: No: Myalgias, Arthralgias Psychiatric: Positive: Substance Abuse Physical Exam Narrative GENERAL: Awake, alert, somewhat anxious 46-year-old female who appears her stated age and is in no acute respiratory distress. SKIN: Focused skin assessment warm/dry. Tattoos noted. HEAD: Atraumatic. Normocephalic. EYES: Pupils equal and round. No scleral icterus. No injection or drainage. ENT: No nasal bleeding or discharge. Mucous membranes pink and moist. NECK: Trachea midline. No JVD. CARDIOVASCULAR: Regular, tachycardic with a heart rate of 105. RESPIRATORY: No accessory muscle use. Diminished breath sounds in the left base. GASTROINTESTINAL: Abdomen soft, non-tender, nondistended. No rebound tenderness or guarding. MUSCULOSKELETAL: No obvious deformities. No clubbing. No cyanosis. No edema. No significant left axillary lymphadenopathy noted. No left epitrochlear lymphadenopathy noted. No obvious lymphangitis. NEUROLOGICAL: Awake and alert. No obvious cranial nerve deficits. Motor grossly within normal limits. Normal speech. PSYCHIATRIC: Appropriate mood and affect; insight and judgment normal. Data Data Last Documented VS Vital Signs Date Time Temp Pulse Resp B/P (MAP) Pulse Ox O2 Delivery O2 Flow Rate FiO2 06/18/17 18:37 16 06/18/17 18:30 82 116/69 (85) 98 Nasal Cannula 2.00 06/18/17 17:15 98.6 Orders Orders Electrocardiogram (06/18/17 17:21) Ckmb (Isoenzyme) Profile (06/18/17 17:21) Complete Blood Count With Diff (06/18/17 17:21) Comprehensive Metabolic Panel (06/18/17 17:21) Magnesium (Mg) (06/18/17 17:21) Prothrombin Time / Inr (Pt) (06/18/17 17:21) Act Partial Throm Time (Ptt) (06/18/17 17:21) Troponin I (06/18/17 17:21) Chest, Single Ap (06/18/17 17:21) Ecg Monitoring (06/18/17 17:21) Bilateral Bp Monitoring (06/18/17 17:21) Iv Access Insert/Monitor (06/18/17 17:21) Oximetry (06/18/17 17:21) Oxygen Administration (06/18/17 17:21) Aspirin Chew (Aspirin Chew) (06/18/17 17:30) Sodium Chloride 0.9% Flush (Ns Flush) (06/18/17 17:30) Sodium Chlorid 0.9% 500 Ml Inj (Ns 500 M (06/18/17 17:30) Ketorolac Inj (Toradol Inj) (06/18/17 17:30) Lactic Acid (06/18/17 17:23) Blood Culture (06/18/17 17:23) Alcohol (Ethanol) (06/18/17 17:23) Drug Screen, Random Urine (06/18/17 17:23) Ct Pulmonary Angiogram (06/18/17 ) Iohexol 350 Inj (Omnipaque 350 Inj) (06/18/17 18:55) Labs Laboratory Tests Test 06/18/17 17:20 06/18/17 18:20 White Blood Count 11.1 TH/MM3 Red Blood Count 4.02 MIL/MM3 Hemoglobin 13.7 GM/DL Hematocrit 39.7 % Mean Corpuscular Volume 98.7 FL Mean Corpuscular Hemoglobin 34.1 PG Mean Corpuscular Hemoglobin Concent 34.6 % Red Cell Distribution Width 15.4 % Platelet Count 173 TH/MM3 Mean Platelet Volume 7.9 FL Neutrophils (%) (Auto) 66.0 % Lymphocytes (%) (Auto) 22.4 % Monocytes (%) (Auto) 10.0 % Eosinophils (%) (Auto) 0.8 % Basophils (%) (Auto) 0.8 % Neutrophils # (Auto) 7.3 TH/MM3 Lymphocytes # (Auto) 2.5 TH/MM3 Monocytes # (Auto) 1.1 TH/MM3 Eosinophils # (Auto) 0.1 TH/MM3 Basophils # (Auto) 0.1 TH/MM3 CBC Comment DIFF FINAL Differential Comment Prothrombin Time 10.0 SEC Prothromb Time International Ratio 1.0 RATIO Activated Partial Thromboplast Time 27.9 SEC Blood Urea Nitrogen 8 MG/DL Creatinine 0.53 MG/DL Random Glucose 120 MG/DL Total Protein 9.2 GM/DL Albumin 4.0 GM/DL Calcium Level 9.5 MG/DL Magnesium Level 2.0 MG/DL Alkaline Phosphatase 201 U/L Aspartate Amino Transf (AST/SGOT) 168 U/L Alanine Aminotransferase (ALT/SGPT) 78 U/L Total Bilirubin 0.7 MG/DL Sodium Level 136 MEQ/L Potassium Level 3.8 MEQ/L Chloride Level 103 MEQ/L Carbon Dioxide Level 21.0 MEQ/L Anion Gap 12 MEQ/L Estimat Glomerular Filtration Rate 123 ML/MIN Lactic Acid Level 1.5 mmol/L Total Creatine Kinase 46 U/L Troponin I LESS THAN 0.02 NG/ML Urine Opiates Screen POS Urine Barbiturates Screen NEG Urine Amphetamines Screen NEG Urine Benzodiazepines Screen NEG Urine Cocaine Screen NEG Urine Cannabinoids Screen NEG [facility] Medical Decision Making Medical Screen Exam Complete: Yes Emergency Medical Condition: Yes Medical Record Reviewed: Yes Interpretation(s) EKG reveals sinus tachycardia with a heart rate of 101. Laboratory Tests Test 06/18/17 17:20 06/18/17 18:20 White Blood Count 11.1 TH/MM3 Red Blood Count 4.02 MIL/MM3 Hemoglobin 13.7 GM/DL Hematocrit 39.7 % Mean Corpuscular Volume 98.7 FL Mean Corpuscular Hemoglobin 34.1 PG Mean Corpuscular Hemoglobin Concent 34.6 % Red Cell Distribution Width 15.4 % Platelet Count 173 TH/MM3 Mean Platelet Volume 7.9 FL Neutrophils (%) (Auto) 66.0 % Lymphocytes (%) (Auto) 22.4 % Monocytes (%) (Auto) 10.0 % Eosinophils (%) (Auto) 0.8 % Basophils (%) (Auto) 0.8 % Neutrophils # (Auto) 7.3 TH/MM3 Lymphocytes # (Auto) 2.5 TH/MM3 Monocytes # (Auto) 1.1 TH/MM3 Eosinophils # (Auto) 0.1 TH/MM3 Basophils # (Auto) 0.1 TH/MM3 CBC Comment DIFF FINAL Differential Comment Prothrombin Time 10.0 SEC Prothromb Time International Ratio 1.0 RATIO Activated Partial Thromboplast Time 27.9 SEC Blood Urea Nitrogen 8 MG/DL Creatinine 0.53 MG/DL Random Glucose 120 MG/DL Total Protein 9.2 GM/DL Albumin 4.0 GM/DL Calcium Level 9.5 MG/DL Magnesium Level 2.0 MG/DL Alkaline Phosphatase 201 U/L Aspartate Amino Transf (AST/SGOT) 168 U/L Alanine Aminotransferase (ALT/SGPT) 78 U/L Total Bilirubin 0.7 MG/DL Sodium Level 136 MEQ/L Potassium Level 3.8 MEQ/L Chloride Level 103 MEQ/L Carbon Dioxide Level 21.0 MEQ/L Anion Gap 12 MEQ/L Estimat Glomerular Filtration Rate 123 ML/MIN Lactic Acid Level 1.5 mmol/L Total Creatine Kinase 46 U/L Troponin I LESS THAN 0.02 NG/ML Urine Opiates Screen POS Urine Barbiturates Screen NEG Urine Amphetamines Screen NEG Urine Benzodiazepines Screen NEG Urine Cocaine Screen NEG Urine Cannabinoids Screen NEG Last Impressions Chest X-Ray 06/18/17 1721 Signed Impressions: Service Date/Time: Sunday, June 18, 2017 18:02 - CONCLUSION: No acute disease. Duc Newberry MD CT Angiography 06/18/17 0000 Signed Impressions: Service Date/Time: Sunday, June 18, 2017 18:43 - CONCLUSION: 1. No evidence for pulmonary embolism. 2. Parenchymal density left upper lobe extending to the pleural pleural surface measuring 1.3 x 0.8 cm, nonspecific. Followup CT chest in 3 months recommended for stability. 3. 5 mm nodule right upper lobe. 4. No infiltrate. Duc Newberry MD Differential Diagnosis Differential diagnosis includes endocarditis, septicemia, bacteremia, cellulitis , pneumothorax, septic emboli, sepsis, lymphadenitis, lymphangitis, opiate withdrawal, alcohol intoxication. Narrative Course IV was established, labs are drawn and sent, and the patient was placed on cardiac telemetry monitoring and continuous pulse oximetry monitoring. EKG was ordered and interpreted. Chest x-ray was obtained to evaluate for possible pneumothorax. Blood culture and lactic acid were sent to lab. Chest x-rays unremarkable. CT pulmonary angiogram was ordered to rule out septic emboli and pulmonary emboli, does reveal a nodule, she will need follow-up CT in 3-6 months. I discussed the CT findings with the patient. I recommended 23 hour observation until blood cultures are negative, however, patient does not want to stay overnight. I verified the patient's cell phone number, she states that it is a good number, we will call if blood cultures are positive. She is advised to follow-up with her primary physician and restrain from using drugs illegally through an IV. Diagnosis Primary Impression: Pleuritic chest pain Patient Instructions: General Instructions Additional Instructions: You need a repeat CT in 3 months to evaluate the left lung nodule. Return for fever or progressing symptoms. Ibuprofen as needed for pain. Follow-up with her pain interventional is, Dr. Soria. Med/Other Pt SpecificInfo: No Change to Meds Disposition: 01 DISCHARGE HOME Condition: Stable Xavier Reardon MD Jun 18, 2017 17:38
[2017-06-18 17:57] VITALS: BP 120/73; PULSE 86; RESP 16; O2SAT 98
[2017-06-18 18:00] LABS: AUTOMATED NEUTROPHIL # 7.3 TH/MM3 (1.8-7.7); BASOPHIL # 0.1 TH/MM3 (0-0.2); BASOPHIL % 0.8 % (0.0-2.0); EOSINOPHIL # 0.1 TH/MM3 (0-0.4); EOSINOPHIL % 0.8 % (0.0-4.0); HEMATOCRIT 39.7 % (35.0-46.0); HEMOGLOBIN 13.7 GM/DL (11.6-15.3); LYMPH % 22.4 % (9.0-44.0); LYMPHOCYTE # 2.5 TH/MM3 (1.0-4.8); MEAN CELL VOLUME 98.7 FL (80.0-100.0); MEAN CORPUSCULAR HEMOGLOBIN 34.1 PG (27.0-34.0); MEAN CORPUSCULAR HGB CONC 34.6 % (32.0-36.0); MEAN PLATELET VOLUME 7.9 FL (7.0-11.0); MONOCYTE # 1.1 TH/MM3 (0-0.9); PLATELET COUNT 173 TH/MM3 (150-450); RED BLOOD COUNT 4.02 MIL/MM3 (4.00-5.30); RED CELL DISTRIBUTION WIDTH 15.4 % (11.6-17.2); WHITE BLOOD COUNT 11.1 TH/MM3 (4.0-11.0)
[2017-06-18 18:15] LABS: AST (GOT) 168 U/L (15-37); BLOOD UREA NITROGEN 8 MG/DL (7-18); CALCIUM 9.5 MG/DL (8.5-10.1); CHLORIDE 103 MEQ/L (98-107); CREATININE 0.53 MG/DL (0.50-1.00); GLOMERULAR FILTRATION RATE 123 ML/MIN (>89); GLUCOSE,RANDOM 120 MG/DL (74-106); SODIUM (NA) 136 MEQ/L (136-145)
[2017-06-18 18:16] LABS: ALT (GPT) 78 U/L (10-53)
--- NOTE | 2017-06-18 18:19 | RADRPT ---
EXAM DATE/TIME: 06/18/2017 18:02 [facility] COMPARISON: CHEST SINGLE AP, March 02, 2017, 13:34. INDICATIONS : Patient complains of chest pain, cough, and shortness of breath. MEDICAL HISTORY : Osteomyelitis. SURGICAL HISTORY : None. ENCOUNTER: Initial ACUITY: 2 days PAIN SCORE: 6/10 LOCATION: chest FINDINGS: A single view of the chest demonstrates the lungs to be symmetrically aerated without evidence of mas s, infiltrate or effusion. The cardiomediastinal contours are unremarkable. Osseous structures are intact. CONCLUSION: No acute disease. Duc Newberry MD on June 18, 2017 at 18:17 Board Certified Radiologist. This report was verified electronically.
[2017-06-18 18:20] LABS: ALKALINE PHOSPHATASE 201 U/L (45-117); TOTAL BILIRUBIN ADULT 0.7 MG/DL (0.2-1.0); TOTAL PROTEIN 9.2 GM/DL (6.4-8.2); TROPONIN I LESS THAN 0.02 NG/ML (0.02-0.05)
[2017-06-18 18:30] VITALS: BP 116/69; PULSE 82; RESP 16; O2SAT 98
[2017-06-18 18:37] VITALS: RESP 16
[2017-06-18] MEDS ORDERED: IOHEXOL 350 MG/ML 10 ML VIAL (for RAD DIAG) IVCONTRAST ONE (18:55)
--- NOTE | 2017-06-18 19:05 | RADRPT ---
EXAM DATE/TIME: 06/18/2017 18:43 [facility] COMPARISON: No previous studies available for comparison. INDICATIONS : Left sided chest pain today. IV CONTRAST: 77 cc Omnipaque 350 (iohexol) IV RADIATION DOSE: 5.67 CTDIvol (mGy) MEDICAL HISTORY : Cardiovascular disease. Seizures. Lupus. SURGICAL HISTORY : Hysterectomy. ENCOUNTER: Initial ACUITY: 1 day PAIN SCALE: 6/10 LOCATION: Left chest TECHNIQUE: Volumetric scanning of the chest was performed using a pulmonary embolism protocol MIP images were re constructed. Using automated exposure control and adjustment of the mA and/or kV according to patien t size, radiation dose was kept as low as reasonably achievable to obtain optimal diagnostic quality images. DICOM format image data is available electronically for review and comparison. Follow-up recommendations for detected pulmonary nodules are based at a minimum on nodule size and pa tient risk factors according to Fleischner Society Guidelines. FINDINGS: PULMONARY ARTERIES: No filling defects are seen in the pulmonary arteries through the segmental level. LUNGS: There is no consolidation or pneumothorax . No concerning pulmonary nodule is visualized. Parenchyma l density in the left upper lobe peripherally abutting the pleura measuring 1.3 x 0.8 cm. 5 mm nodule within the posterior lateral right upper lobe. PLEURAE: There is no pleural thickening or pleural effusion. MEDIASTINUM: There is good visualization of the great vessels of the middle mediastinum. No evidence of mediastin al or hilar adenopathy/mass. MUSCULOSKELETAL: Within normal limits for patient age. MISCELLANEOUS: The visualized upper abdominal organs demonstrate no acute abnormality. CONCLUSION: 1. No evidence for pulmonary embolism. 2. Parenchymal density left upper lobe extending to the pleural pleural surface measuring 1.3 x 0.8 c m, nonspecific. Followup CT chest in 3 months recommended for stability. 3. 5 mm nodule right upper lobe. 4. No infiltrate. Duc Newberry MD on June 18, 2017 at 19:00 Board Certified Radiologist. This report was verified electronically.
--- NOTE | 2017-06-19 12:54 | EKG ---
Date Performed: 06/18/2017 Time Performed: 17:18:32 PTAGE: 46 years EKG: SINUS TACHYCARDIA ABNORMAL RHYTHM ECG Compared to PREVIOUS TRACING , sinus rate has increased. PREVIOUS TRACIN03/02/2017 14.00 DOCTOR: Raul Plummer Interpretating Date/Time 06/19/2017 12:54:29
== END 2017-06-18 19:26 | disposition home or self-care (01) ==
LOC: NEPC 16:56
DX: R07.89 Other chest pain (principal); R91.1 Solitary pulmonary nodule; R94.31 Abnormal electrocardiogram [ECG] [EKG]; F11.10 Opioid abuse, uncomplicated; J44.9 Chronic obstructive pulmonary disease, unspecified; M32.9 Systemic lupus erythematosus, unspecified; F41.9 Anxiety disorder, unspecified; F17.200 Nicotine dependence, unspecified, uncomplicated; F10.10 Alcohol abuse, uncomplicated
CPT/HCPCS: 71045; 71275; 80053; 80307; 82550; 83605; 83735; 84484; 85025; 85610; 85730; 87040; 93005; 96361; 96374; 99285; J1885; J7040; Q9967

== ENCOUNTER 2017-09-17 18:14 | Emergency (ER) | payer SELFPAY ==
[~2017-09-17] VITALS: Ht 149.9 cm; Wt 50.0 kg
[~2017-09-17 18:14] MED LIST changes: -HYDR-3580 PO; +HYDR-3583 PO; -OMEP40CA2 PO; -PROM1SUP7 RECTAL; -ZOFR4TAB3 SL
[2017-09-17 18:16] VITALS: BP 128/80; PULSE 100; RESP 19; TEMP 97.6; O2SAT 96
[2017-09-17] MEDS ORDERED: SODIUM CHLOR 0.9% 1000 ML INJ 1,000 ML IV SCH (18:53)
--- NOTE | 2017-09-17 18:58 | PD ---
HPI Chief Complaint: Skin Problem Time Seen by Provider: 18:48 Travel History International Travel<30 days: No Contact w/Intl Traveler<30days: No Traveled to known affect area: No History of Present Illness HPI examined in the presence of a nurse. 47-year-old female presents for evaluation of right wrist pain and swelling. She reports that she has been injecting IV Dilaudid and 3 days ago she injected Dilaudid in her dorsum of the right hand. She developed some soft tissue swelling on the dorsum of the right wrist afterwards. She reports pain, aching, worse with palpation. Denies any objective fevers but she has had chills. She endorses nausea. She has no other complaints at this time. PFSH Past Medical History Hx Anticoagulant Therapy: No Arthritis: Yes (HANDS) Asthma: Yes Autoimmune Disease: Yes (LUPUS) Blood Disorders: No Anxiety: Yes Depression: No Heart Rhythm Problems: No Cardiovascular Problems: Yes High Cholesterol: No Chemotherapy: No Chest Pain: Yes Congestive Heart Failure: No COPD: Yes Cerebrovascular Accident: No Diabetes: No Diminished Hearing: No Endocrine: No Gastrointestinal Disorders: No Genitourinary: No Hepatitis: Yes (C) Immune Disorder: Yes (LUPUS) Implanted Vascular Access Dvce: Yes Kidney Stones: No Musculoskeletal: Yes Neurologic: Yes Psychiatric: Yes Reproductive: No Respiratory: No Immunizations Current: No Radiation Therapy: No Renal Failure: No Seizures: Yes Sleep Apnea: No Thyroid Disease: No ?: Not Menopausal: Yes : 3 Para: 1 Miscarriage: 0 : 2 Ovarian Cysts: Yes Past Surgical History Abdominal Surgery: No AICD: No Arteriovenous Shunt: No Body Medical Devices: CADAVER BONE IN NECK Cardiac Surgery: No Section: Yes (X1) Ear Surgery: No Endocrine Surgery: No Eye Surgery: No Genitourinary Surgery: No Gynecologic Surgery: Yes (PARTIAL HYSTERECTOMY) Hysterectomy: Yes Insulin Pump: No Joint Replacement: No Neurologic Surgery: Yes ("NECK SURGERY") Oral Surgery: No Pacemaker: No Thoracic Surgery: No Other Surgery: Yes (SPINAL/NECK, RT WRIST TENDON, PARTIAL HYSTERECTOMY) Social History Alcohol Use: Yes (DAILY) Tobacco Use: Yes (2 PPD) Substance Use: Yes (IVDA DILAUDID LAST USED 06/18/16) Allergies-Medications (Allergen,Severity, Reaction): Coded Allergies: No Known Allergies (Unverified Allergy, Unknown, 09/17/17) Reported Meds & Prescriptions Reported Meds & Active Scripts Active Keflex (Cephalexin) 500 Mg Cap 500 Mg PO Q8H Bactrim DS (Sulfamethoxazole-Trimethoprim) 800-160 Mg Tab 1 Tab PO BID Review of Systems Except as stated in HPI: all other systems reviewed are Neg Physical Exam Narrative GENERAL: Well-developed well-nourished female no acute distress SKIN: Warm and dry. There is a 2 cm fluctuant abscess on the dorsum of the right wrist. There is some proximal streaking erythema. There is some tender axillary lymphadenopathy in the right axilla. HEAD: Atraumatic. Normocephalic. EYES: Pupils equal and round. No scleral icterus. No injection or drainage. ENT: No nasal bleeding or discharge. Mucous membranes pink and moist. NECK: Trachea midline. No JVD. CARDIOVASCULAR: Regular rate and rhythm. No murmur appreciated. RESPIRATORY: No accessory muscle use. Clear to auscultation. Breath sounds equal bilaterally. GASTROINTESTINAL: Abdomen soft, non-tender, nondistended. Hepatic and splenic margins not palpable. MUSCULOSKELETAL: Skin as noted above. The patient is full range of motion of the right arm, hand, wrist. There is no joint effusion. NEUROLOGICAL: Awake and alert. No obvious cranial nerve deficits. Motor grossly within normal limits. Normal speech. Data Data Last Documented VS Vital Signs Date Time Temp Pulse Resp B/P (MAP) Pulse Ox O2 Delivery O2 Flow Rate FiO2 09/17/17 18:16 97.6 100 19 128/80 (96) 96 Orders Orders Sepsis Workup Initiated (09/17/17 ) Complete Blood Count With Diff (09/17/17 18:53) Comprehensive Metabolic Panel (09/17/17 18:53) Prothrombin Time / Inr (Pt) (09/17/17 18:53) Act Partial Throm Time (Ptt) (09/17/17 18:53) Lactic Acid Sepsis Protocol (09/17/17 18:53) Blood Culture (09/17/17 18:53) Wound Culture And Gram Stain (09/17/17 18:53) Ondansetron Inj (Zofran Inj) (09/17/17 19:00) Sodium Chlor 0.9% 1000 Ml Inj (Ns 1000 M (09/17/17 18:53) Iv Access Insert/Monitor (09/17/17 18:53) Lidocai-Epi 1%-1:100,000 Inj (Xylocaine- (09/17/17 19:45) Ketorolac Inj (Toradol Inj) (09/17/17 20:00) Ed Discharge Order (09/17/17 20:09) Sulfamet-Trimeth Ds 800-160 Mg (Bactrim (09/17/17 20:15) Cephalexin (Keflex) (09/17/17 20:15) Labs Laboratory Tests Test 09/17/17 19:20 White Blood Count 5.9 TH/MM3 Red Blood Count 3.90 MIL/MM3 Hemoglobin 12.9 GM/DL Hematocrit 38.6 % Mean Corpuscular Volume 99.1 FL Mean Corpuscular Hemoglobin 33.1 PG Mean Corpuscular Hemoglobin Concent 33.4 % Red Cell Distribution Width 13.3 % Platelet Count 145 TH/MM3 Mean Platelet Volume 8.8 FL Neutrophils (%) (Auto) 57.3 % Lymphocytes (%) (Auto) 23.4 % Monocytes (%) (Auto) 16.8 % Eosinophils (%) (Auto) 1.1 % Basophils (%) (Auto) 1.4 % Neutrophils # (Auto) 3.4 TH/MM3 Lymphocytes # (Auto) 1.4 TH/MM3 Monocytes # (Auto) 1.0 TH/MM3 Eosinophils # (Auto) 0.1 TH/MM3 Basophils # (Auto) 0.1 TH/MM3 CBC Comment DIFF FINAL Differential Comment Prothrombin Time 10.7 SEC Prothromb Time International Ratio 1.1 RATIO Activated Partial Thromboplast Time 26.4 SEC Blood Urea Nitrogen 4 MG/DL Creatinine 0.68 MG/DL Random Glucose 144 MG/DL Total Protein 8.8 GM/DL Albumin 3.3 GM/DL Calcium Level 8.6 MG/DL Alkaline Phosphatase 227 U/L Aspartate Amino Transf (AST/SGOT) 197 U/L Alanine Aminotransferase (ALT/SGPT) 57 U/L Total Bilirubin 0.6 MG/DL Sodium Level 139 MEQ/L Potassium Level 3.9 MEQ/L Chloride Level 103 MEQ/L Carbon Dioxide Level 22.4 MEQ/L Anion Gap 14 MEQ/L Estimat Glomerular Filtration Rate 92 ML/MIN Lactic Acid Level 1.3 mmol/L MDM Medical Decision Making Medical Screen Exam Complete: Yes Emergency Medical Condition: Yes Medical Record Reviewed: Yes Differential Diagnosis Abscess, lymphangitis, cellulitis, sepsis Narrative Course Lab work, blood cultures, wound culture obtained. The patient be given IV fluids and Zofran. CBC is unremarkable. CMP reveals mildly elevated liver enzymes. Lactic acid within normal limits. Blood cultures are pending. Wound cultures pending. The patient will be discharged on Bactrim and Keflex. Discussed signs and symptoms that would warrant returning to the emergency room. Procedures Procedure Narrative INCISION AND DRAINAGE OF ABSCESS: The area was prepped and was sterilely draped. A subcutaneous wheal of 1% Xylocaine with epinephrine with a total number 5 mL was used to anesthetize the area. The area was properly anesthetized. A number 11 scalpel was used to make a 1 -cm incision across the area of the abscess. Cultures were obtained. The abscess was drained an irrigated with normal saline. Diagnosis Primary Impression: Abscess of right arm Additional Impression: Lymphangitis Additional Instructions: Medication as prescribed. Warm compresses several times a day 15 minutes at a time. Return for new or worsening symptoms. Med/Other Pt SpecificInfo: Prescription(s) given, Wound Care Scripts Cephalexin (Keflex) 500 Mg Cap 500 MG PO Q8H for Infection, #30 CAP 0 Refills Prov: Haim Caicedo MD 09/17/17 Sulfamethoxazole-Trimethoprim (Bactrim DS) 800-160 Mg Tab 1 TAB PO BID for Infection, #20 TAB 0 Refills Prov: Haim Caicedo MD 09/17/17 Disposition: 01 DISCHARGE HOME Condition: Stable Scott Bates Sep 17, 2017 18:58
[2017-09-17] MEDS ORDERED: LIDOCAINE 1%/EPINEPHrine 1:100,000 SOLN 20 ML VIAL INFIL ONE (19:00)
[2017-09-17] MEDS ORDERED: ONDANSETRON HCL 4 MG/2 ML VIAL IVP ONE (19:00)
[2017-09-17 19:38] LABS: AUTOMATED NEUTROPHIL # 3.4 TH/MM3 (1.8-7.7); BASOPHIL # 0.1 TH/MM3 (0-0.2); BASOPHIL % 1.4 % (0.0-2.0); EOSINOPHIL # 0.1 TH/MM3 (0-0.4); EOSINOPHIL % 1.1 % (0.0-4.0); HEMATOCRIT 38.6 % (35.0-46.0); HEMOGLOBIN 12.9 GM/DL (11.6-15.3); LYMPH % 23.4 % (9.0-44.0); LYMPHOCYTE # 1.4 TH/MM3 (1.0-4.8); MEAN CELL VOLUME 99.1 FL (80.0-100.0); MEAN CORPUSCULAR HEMOGLOBIN 33.1 PG (27.0-34.0); MEAN CORPUSCULAR HGB CONC 33.4 % (32.0-36.0); MEAN PLATELET VOLUME 8.8 FL (7.0-11.0); MONO % 16.8 % (0.0-8.0); NEUT % 57.3 % (16.0-70.0); PLATELET COUNT 145 TH/MM3 (150-450); RED CELL DISTRIBUTION WIDTH 13.3 % (11.6-17.2); WHITE BLOOD COUNT 5.9 TH/MM3 (4.0-11.0)
[2017-09-17] MEDS ORDERED: LIDOCAINE 1%/EPINEPHrine 1:100,000 SOLN 30 ML VIAL INFIL ONE (19:45)
[2017-09-17 19:46] LABS: ALT (GPT) 57 U/L (10-53)
[2017-09-17 19:48] LABS: ALKALINE PHOSPHATASE 227 U/L (45-117); TOTAL BILIRUBIN ADULT 0.6 MG/DL (0.2-1.0); TOTAL PROTEIN 8.8 GM/DL (6.4-8.2)
[2017-09-17 19:49] LABS: ALBUMIN 3.3 GM/DL (3.4-5.0); AST (GOT) 197 U/L (15-37); BICARBONATE 22.4 MEQ/L (21.0-32.0); BLOOD UREA NITROGEN 4 MG/DL (7-18); CALCIUM 8.6 MG/DL (8.5-10.1); CHLORIDE 103 MEQ/L (98-107); CREATININE 0.68 MG/DL (0.50-1.00); GLOMERULAR FILTRATION RATE 92 ML/MIN (>89); GLUCOSE,RANDOM 144 MG/DL (74-106); SODIUM (NA) 139 MEQ/L (136-145)
[2017-09-17 19:59] LABS: INTERNATIONAL NORMALIZED RATIO 1.1 RATIO; PROTHROMBIN TIME - PATIENT 10.7 SEC (9.8-11.6)
[2017-09-17] MEDS ORDERED: KETOROLAC TROMETHAMINE 30 MG/ML (IVP) VIAL IV PUSH ONE (20:00)
[2017-09-17] MEDS ORDERED: CEPH-460 PO (20:10)
[2017-09-17] MEDS ORDERED: BACT800T5 PO (20:10)
[2017-09-17] MEDS ORDERED: CEPHALEXIN MONOHYDRATE 500 MG CAP PO ONE (20:15)
[2017-09-17] MEDS ORDERED: SULFAMETHOXAZOLE-TRIMETHOPRIM DS 800-160 MG TAB PO ONE (20:15)
== END 2017-09-17 20:57 | disposition home or self-care (01) ==
LOC: NEPC 18:14
DX: L02.413 Cutaneous abscess of right upper limb (principal); I89.1 Lymphangitis; R74.8 Abnormal levels of other serum enzymes; B96.1 Klebsiella pneumoniae [K. pneumoniae] as the cause of diseases classified elsewhere; B96.89 Other specified bacterial agents as the cause of diseases classified elsewhere; F17.200 Nicotine dependence, unspecified, uncomplicated; Z87.39 Personal history of other diseases of the musculoskeletal system and connective tissue; Z87.09 Personal history of other diseases of the respiratory system; Z86.2 Personal history of diseases of the blood and blood-forming organs and certain disorders involving the immune mechanism; Z86.59 Personal history of other mental and behavioral disorders; Z86.79 Personal history of other diseases of the circulatory system; Z86.69 Personal history of other diseases of the nervous system and sense organs
CPT/HCPCS: 10060; 80053; 83605; 85025; 85610; 85730; 87040; 87070; 87077; 87186; 87205; 96361; 96374; 96375; 99284; J1885; J2405; J7030

== ENCOUNTER 2017-10-07 12:38 | Emergency (ER) | payer SELFPAY ==
[~2017-10-07] VITALS: Ht 149.9 cm; Wt 50.0 kg
[~2017-10-07 12:38] MED LIST changes: +BACT800T5 PO; +CEPH-460 PO; -HYDR-3583 PO
[2017-10-07 12:59] VITALS: BP 125/82; PULSE 95; RESP 19; TEMP 98.3
[2017-10-07 14:50] VITALS: BP 172/89; PULSE 84; RESP 18; O2SAT 98
--- NOTE | 2017-10-07 15:15 | PD ---
HPI Chief Complaint: Abdominal Pain Time Seen by Provider: 14:45 Travel History International Travel<30 days: No Contact w/Intl Traveler<30days: No Traveled to known affect area: No History of Present Illness HPI The patient was seen and examined in the presence of the nurse. This patient is an active IV drug user. She was seen here a couple weeks ago for infection her hand got some antibiotic prescription. She started taking it but then felt it gave her diarrhea and quit taking the medicine. She denies fever. Her main complaint is that she is having difficulty getting into rehab. She is called several drug rehab places and there is been a waiting list of around 3 weeks. She also is an alcohol abuser. She was drinking this morning. Symptom severity is moderate. No alleviating factors. No exacerbating factors. Duration is many months PFSH Past Medical History Hx Anticoagulant Therapy: No Arthritis: Yes (HANDS) Asthma: Yes Autoimmune Disease: Yes (LUPUS) Blood Disorders: No Anxiety: Yes Depression: No Heart Rhythm Problems: No Cardiovascular Problems: Yes High Cholesterol: No Chemotherapy: No Chest Pain: Yes Congestive Heart Failure: No COPD: Yes Cerebrovascular Accident: No Diabetes: No Diminished Hearing: No Endocrine: No Gastrointestinal Disorders: No Genitourinary: No Hepatitis: Yes (C) Immune Disorder: Yes (LUPUS) Implanted Vascular Access Dvce: Yes Kidney Stones: No Musculoskeletal: Yes Neurologic: Yes Psychiatric: Yes Reproductive: No Respiratory: Yes (COPD, ASTHMA) Immunizations Current: No Radiation Therapy: No Renal Failure: No Seizures: Yes Sleep Apnea: No Thyroid Disease: No Tetanus Vaccination: < 5 Years Influenza Vaccination: No ?: Not Menopausal: Yes : 3 Para: 1 Miscarriage: 0 : 2 Ovarian Cysts: Yes Past Surgical History Abdominal Surgery: No AICD: No Arteriovenous Shunt: No Body Medical Devices: CADAVER BONE IN NECK Cardiac Surgery: No Section: Yes (X1) Ear Surgery: No Endocrine Surgery: No Eye Surgery: No Genitourinary Surgery: No Gynecologic Surgery: Yes (PARTIAL HYSTERECTOMY) Hysterectomy: Yes Insulin Pump: No Joint Replacement: No Neurologic Surgery: Yes ("NECK SURGERY") Oral Surgery: No Pacemaker: No Thoracic Surgery: No Other Surgery: Yes (SPINAL/NECK, RT WRIST TENDON, PARTIAL HYSTERECTOMY) Social History Alcohol Use: Yes (DAILY) Tobacco Use: Yes (2 PPD) Substance Use: Yes (IVDA DILAUDID LAST USED 06/18/16) Allergies-Medications (Allergen,Severity, Reaction): Coded Allergies: No Known Allergies (Unverified Allergy, Unknown, 10/07/17) Reported Meds & Prescriptions Reported Meds & Active Scripts Active Keflex (Cephalexin) 500 Mg Cap 500 Mg PO Q8H Bactrim DS (Sulfamethoxazole-Trimethoprim) 800-160 Mg Tab 1 Tab PO BID Review of Systems General / Constitutional: No: Fever Eyes: No: Visual changes HENT: Positive: Lightheadedness, No: Headaches Cardiovascular: No: Chest Pain or Discomfort Respiratory: No: Shortness of Breath Gastrointestinal: No: Abdominal Pain Genitourinary: No: Dysuria Musculoskeletal: Positive: Weakness, No: Pain Skin: No Rash Neurologic: Positive: Weakness Psychiatric: Positive: Substance Abuse, No: Depression Endocrine: No: Polydipsia Hematologic/Lymphatic: No: Easy Bruising Physical Exam Narrative GENERAL: Well-nourished, well-developed patient in no apparent distress. SKIN: Focused skin assessment reveals some scabbed dried lesions on the arms and hands as well as some right arm superficial thrombophlebitis I do not see any abscesses or areas of cellulitis.. Skin is Warm and dry. HEAD: Atraumatic. Normocephalic. EYES: Pupils equal and round. No scleral icterus. No injection or drainage. ENT: No nasal bleeding or discharge. Mucous membranes pink and moist. NECK: Trachea midline. No JVD. CARDIOVASCULAR: Regular rate and rhythm. No murmur appreciated. RESPIRATORY: No accessory muscle use. Clear to auscultation. Breath sounds equal bilaterally. GASTROINTESTINAL: Abdomen soft, non-tender, nondistended. Hepatic and splenic margins not palpable. MUSCULOSKELETAL: No obvious deformities. No clubbing. No cyanosis. No edema. NEUROLOGICAL: Awake and alert. No obvious cranial nerve deficits. Motor grossly within normal limits. Normal speech. PSYCHIATRIC: Depressed mood and a flat affect; insight and judgment poor. Data Data Last Documented VS Vital Signs Date Time Temp Pulse Resp B/P (MAP) Pulse Ox O2 Delivery O2 Flow Rate FiO2 10/07/17 14:54 18 10/07/17 14:50 84 172/89 (116) 98 Room Air 10/07/17 12:59 98.3 Orders Orders Complete Blood Count With Diff (10/07/17 15:04) Comprehensive Metabolic Panel (10/07/17 15:04) Alcohol (Ethanol) (10/07/17 15:04) Urinalysis - C+S If Indicated (10/07/17 15:04) Labs Laboratory Tests Test 10/07/17 13:35 10/07/17 15:00 Urine Color YELLOW Urine Turbidity CLEAR Urine pH 6.5 Urine Specific [place] 1.020 Urine Protein TRACE mg/dL Urine Glucose (UA) NEG mg/dL Urine Ketones TRACE mg/dL Urine Occult Blood NEG Urine Nitrite NEG Urine Bilirubin NEG Urine Urobilinogen 4.0 MG/DL Urine Leukocyte Esterase NEG Urine Squamous Epithelial Cells 1 /hpf Urine Hyaline Casts 5 /lpf Urine Mucus MOD /lpf Microscopic Urinalysis Comment CULT NOT INDICATED White Blood Count 5.8 TH/MM3 Red Blood Count 3.80 MIL/MM3 Hemoglobin 12.7 GM/DL Hematocrit 37.6 % Mean Corpuscular Volume 98.9 FL Mean Corpuscular Hemoglobin 33.5 PG Mean Corpuscular Hemoglobin Concent 33.8 % Red Cell Distribution Width 14.0 % Platelet Count 154 TH/MM3 Mean Platelet Volume 8.2 FL Neutrophils (%) (Auto) 48.1 % Lymphocytes (%) (Auto) 35.4 % Monocytes (%) (Auto) 12.5 % Eosinophils (%) (Auto) 2.9 % Basophils (%) (Auto) 1.1 % Neutrophils # (Auto) 2.8 TH/MM3 Lymphocytes # (Auto) 2.1 TH/MM3 Monocytes # (Auto) 0.7 TH/MM3 Eosinophils # (Auto) 0.2 TH/MM3 Basophils # (Auto) 0.1 TH/MM3 CBC Comment DIFF FINAL Differential Comment Blood Urea Nitrogen 4 MG/DL Creatinine 0.42 MG/DL Random Glucose 73 MG/DL Total Protein 8.4 GM/DL Albumin 3.3 GM/DL Calcium Level 8.8 MG/DL Alkaline Phosphatase 196 U/L Aspartate Amino Transf (AST/SGOT) 227 U/L Alanine Aminotransferase (ALT/SGPT) 60 U/L Total Bilirubin 0.5 MG/DL Sodium Level 142 MEQ/L Potassium Level 3.4 MEQ/L Chloride Level 104 MEQ/L Carbon Dioxide Level 23.8 MEQ/L Anion Gap 14 MEQ/L Estimat Glomerular Filtration Rate 160 ML/MIN Ethyl Alcohol Level 137 MG/DL [facility] Medical Decision Making Medical Screen Exam Complete: Yes Emergency Medical Condition: Yes Medical Record Reviewed: Yes Differential Diagnosis Polysubstance abuse, anxiety, gastroenteritis, medicine side effect Narrative Course I have reviewed the patient's electronic medical record. Reviewed her last visit from August 2017 for hand infection. I placed a left external jugular IV Labs sent CBC is normal Basic metabolic profile is normal Alcohol level is 137 LFTs are mildly elevated as expected I gave her 1 pain pill No clinical suspicion or objective evidence of infection such as cellulitis or abscess or endocarditis She has no fever or tachycardia or chest symptoms She does have a small amount of superficial thrombophlebitis and I recommended warm compresses She reportedly is not tolerating her Bactrim so I am going to stop that and substitute with doxycycline Recommending [facility] rehab services, I suggest she go there Tuesday Diagnosis Primary Impression: IV drug abuse Additional Impressions: LFT elevation Alcohol abuse Additional Instructions: The patient was advised to follow up with their physician and return if they worsen. Go to [address] [place] [address] on Tuesday for [facility] intake visit Med/Other Pt SpecificInfo: Prescription(s) given Disposition: DISCHARGE HOME Condition: Stable Jhonny Cuadra MD October 07, 2017 15:15
[2017-10-07 15:25] LABS: AUTOMATED NEUTROPHIL # 2.8 TH/MM3 (1.8-7.7); BASOPHIL # 0.1 TH/MM3 (0-0.2); BASOPHIL % 1.1 % (0.0-2.0); EOSINOPHIL # 0.2 TH/MM3 (0-0.4); EOSINOPHIL % 2.9 % (0.0-4.0); HEMATOCRIT 37.6 % (35.0-46.0); HEMOGLOBIN 12.7 GM/DL (11.6-15.3); LYMPH % 35.4 % (9.0-44.0); LYMPHOCYTE # 2.1 TH/MM3 (1.0-4.8); MEAN CELL VOLUME 98.9 FL (80.0-100.0); MEAN CORPUSCULAR HEMOGLOBIN 33.5 PG (27.0-34.0); MEAN CORPUSCULAR HGB CONC 33.8 % (32.0-36.0); MEAN PLATELET VOLUME 8.2 FL (7.0-11.0); MONO % 12.5 % (0.0-8.0); MONOCYTE # 0.7 TH/MM3 (0-0.9); NEUT % 48.1 % (16.0-70.0); PLATELET COUNT 154 TH/MM3 (150-450); WHITE BLOOD COUNT 5.8 TH/MM3 (4.0-11.0)
[2017-10-07 15:58] LABS: ALBUMIN 3.3 GM/DL (3.4-5.0); ALT (GPT) 60 U/L (10-53); AST (GOT) 227 U/L (15-37); BICARBONATE 23.8 MEQ/L (21.0-32.0); BLOOD UREA NITROGEN 4 MG/DL (7-18); CALCIUM 8.8 MG/DL (8.5-10.1); CHLORIDE 104 MEQ/L (98-107); CREATININE 0.42 MG/DL (0.50-1.00); GLOMERULAR FILTRATION RATE 160 ML/MIN (>89); GLUCOSE,RANDOM 73 MG/DL (74-106); SODIUM (NA) 142 MEQ/L (136-145)
[2017-10-07 16:00] LABS: ALKALINE PHOSPHATASE 196 U/L (45-117); TOTAL BILIRUBIN ADULT 0.5 MG/DL (0.2-1.0); TOTAL PROTEIN 8.4 GM/DL (6.4-8.2)
[2017-10-07 18:21] LABS: BILIRUBIN, URINE NEG (NEG); BLOOD, URINE NEG (NEG); GLUCOSE,URINE NEG (NEG); HYALINE CAST, URINE 5 /lpf (RARE); KETONE, URINE TRACE mg/dL (NEG); MUCUS URINE MOD /lpf (OCC); NITRITE,URINE NEG (NEG); PH, URINE 6.5 (5.0-8.5); SQUAMOUS EPITHELIAL CELL URINE 1 /hpf (0-5); URINE COLOR YELLOW (YELLW/STRAW); URINE LEUKOCYTE ESTERASE NEG (NEG)
[2017-10-07] MEDS ORDERED: DOXY100C PO (18:56)
== END 2017-10-07 19:38 | disposition home or self-care (01) ==
LOC: NEPC 12:38
DX: F19.10 Other psychoactive substance abuse, uncomplicated (principal); R79.89 Other specified abnormal findings of blood chemistry; F17.200 Nicotine dependence, unspecified, uncomplicated; F10.10 Alcohol abuse, uncomplicated; Y90.6 Blood alcohol level of 120-199 mg/100 ml
CPT/HCPCS: 36011; 80053; 80307; 81001; 85025; 99283